=== PATIENT | female | born 1950 | race Caucasian/White ===

== ENCOUNTER → 2018-07-05 09:53 | Outpatient (CLI) | payer MEDICARE, OTHER, SELFPAY ==
--- NOTE | 2018-07-05 10:00 | MM_ITS ---
MM Dig screening mamm BI w/CAD CAD Screening COMPARISON: Digital mammograms with CAD 07/14/2015 INDICATION: There is no personal or family history of breast cancer TECHNIQUE: Standard CC and MLO images were obtained. R2 CAD reviewed. FINDINGS: The breasts are composed primarily of fat with mild scattered fiber glandular densities throughout each breast. There are couple mole markers right breast. There is no suspicious lesion and there are no suspicious microcalcifications. IMPRESSION: Fibrofatty parenchyma with no suspicious lesion seen BI-RADS Category: 2 Benign Finding(s) RECOMMENDED FOLLOW-UP: 1YR - 1 YEAR FOLLOW-UP (A letter has been sent to the patient regarding results of the study.)
--- NOTE | 2018-07-05 10:00 | XR_ITS ---
XR DEXA axial skeleton HISTORY: ITS.REASON: OSTEOPENIA ORDERING PHYSICIAN: Shelby Danielson MD PATIENT AGE: 68 years COMPARISON: None FINDINGS: The BMD measured at the Left femoral neck is 0.796 g/cm squared with a T score of -1.7. This is considered Osteopenic according to the World Health Organization criteria. Fracture risk is Moderate. Treatment is advised. The L1 L4 density has a T score of -0.9 IMPRESSION: Osteopenia with moderate fracture risk. Treatment is advised. Recommend follow-up exam June 2020
== END ==
PROVIDERS: PCP Family Medicine; Visit Provider Family Medicine
DX: Z12.31 Encounter for screening mammogram for malignant neoplasm of breast (principal); N60.19 Diffuse cystic mastopathy of unspecified breast; M85.89 Other specified disorders of bone density and structure, multiple sites
CPT/HCPCS: 77067; 77080

== ENCOUNTER → 2022-01-14 09:12 | Outpatient (CLI) | payer MEDICARE, OTHER, SELFPAY ==
--- NOTE | 2022-01-14 09:18 | XR_ITS ---
FINAL REPORT TECHNIQUE: Bone densitometry calculations of the lumbar spine and left hip were obtained. CLINICAL HISTORY: screening FINDINGS: DEXA BONE DENSITY AXIAL SKELETON Using L1-4, the bone mineral density of the spine is 0.978 g/cm2, corresponding to T-score of -0.6. Classified as normal. Using the left hip, the bone mineral density of the femoral neck is 0.661 g/cm2, corresponding to a T-score of -2.3. Classified as osteopenia. NOTE: T-score: Standard deviation compared with peak bone mass of young adult mean. *Following the recommendations of the International Society of Bone densitometry, classification of hip BMD is based on the lower of two T-scores; total hip or femoral neck. IMPRESSION: Diminished bone mineral density of the left hip consistent with osteopenia. FRAX 10 year fracture risk is 18% for major osteoporotic fracture and 4.1% for hip fracture. Reviewed, Interpreted and Dictated by Jade Scruggs MD Transcribed by Amairani Martinez Authenticated and [facility]
--- NOTE | 2022-01-14 09:18 | MM_ITS ---
PROCEDURE INFORMATION: Exam: MG Bilateral Screening 3D Mammography Exam date and time: 01/14/2022 9:35 AM Age: 71 years old Clinical indication: Screening examination TECHNIQUE: Imaging protocol: Bilateral Screening tomosynthesis and 2D mammography including computer-aided detection (CAD) when performed. COMPARISON: 1. MG SCBI MM Dig screening mamm BI w/CAD 07/05/2018 10:22 AM 2. MG DMSB DIG MAMM-SCREEN ILANA 07/14/2015 2:55 PM FINDINGS: MAMMOGRAPHY: Breast composition: There are scattered areas of fibroglandular density. Mass: None. Architectural distortion: None. Calcifications: No suspicious calcifications. Asymmetric density: 0.7 cm questionable asymmetry in the posterior third of the right upper breast Skin thickening: None. Axillary adenopathy: None. IMPRESSION: Patient to be recalled for spot compression views of the right breast in the exaggerated lateral CC and MLO projections, a full 90 degree lateral view, and right breast ultrasound for further evaluation of a right breast asymmetry. ASSESSMENT: BI-RADS Category 0: Incomplete- Need Additional Imaging Evaluation and/or Prior Mammograms for Comparison
== END ==
PROVIDERS: PCP Family Medicine; Visit Provider Family Medicine
DX: Z12.31 Encounter for screening mammogram for malignant neoplasm of breast (principal); Z78.0 Asymptomatic menopausal state
CPT/HCPCS: 77063; 77067; 77080

== ENCOUNTER → 2022-02-10 13:55 | Outpatient (CLI) | payer MEDICARE, OTHER, SELFPAY ==
--- NOTE | 2022-02-10 14:01 | MM_ITS ---
PROCEDURE INFORMATION: Exam: US Right Breast, Complete MG Right Diagnostic Breast Tomosynthesis Exam date and time: 02/10/2022 2:37 PM Age: 71 years old Clinical indication: Recall on the basis of screening mammogram 01/14/2022 for further evaluation of 0.7 cm questionable asymmetry in the posterior 3rd of the right upper breast. TECHNIQUE: Imaging protocol: Complete ultrasound of all four quadrants of the Right breast and the retroareolar regions, including ultrasound of the axilla when performed. Right Diagnostic tomosynthesis and 2D mammography including computer-aided detection (CAD) when performed. Unilateral or bilateral exam. COMPARISON: MG MM DIG MAMM DX UNILAT RT CAD 02/10/2022 2:01 PM FINDINGS: MAMMOGRAPHY: Additional diagnostic images shows that the questionable 0.7 cm asymmetry in the posterior third of the upper breast (MLO) appears less prominent, and is similar to 07/05/2018 and may correspond to the asymmetry posterior third of the inner breast (CC), which is stable since 07/05/2018. ULTRASOUND: Right sonography, all 4 quadrants, retroareolar and axilla demonstrate, 10 o'clock 7 cm from the nipple, a probable cluster of cysts measuring 0.3 by 0.7 x 0.2 cm. No other findings demonstrated. Sonographically unremarkable right axillary lymph node. IMPRESSION: Subcentimeter questionable persistent asymmetry in the right upper breast and 0.7 cm probable cluster of cysts at 10 o'clock are probably benign. A six-month follow-up diagnostic right mammogram and targeted right breast ultrasound are recommended, unless otherwise clinically indicated. ASSESSMENT: BI-RADS Category 3: Probably benign
== END ==
PROVIDERS: PCP Family Medicine; Visit Provider Family Medicine
DX: R92.8 Other abnormal and inconclusive findings on diagnostic imaging of breast (principal)
CPT/HCPCS: 76641; 77061; 77065; G0279

== ENCOUNTER → 2022-05-26 09:49 | Outpatient (CLI) | payer MEDICARE, OTHER, SELFPAY ==
[2022-05-26 09:57] LABS: Microscopic, Urine URINE MICROSCOPIC (MICROSCOPIC)
[2022-05-26 10:21] LABS: Appearance,Urine CLEAR (Clear); Bilirubin,Urine Negative (Negative); Blood, Urine Negative (Negative); Color,Urine YELLOW (Yellow); Glucose,Urine (UA) Negative (Negative); Ketones,Urine Negative (Negative); Leukocyte Esterase,Urine Negative (Negative); Nitrate,Urine Negative (Negative); Protein,Urine Negative (Negative); Specific Gravity, Urine 1.015 (1.005-1.030); Urobilinogen,Urine 0.2 EU/dl (0.2)
[2022-05-26 10:31] LABS: Basophils # 0.1 K/mm3 (0-0.2); Eosinophils # 0.1 K/mm3 (0.0-0.4); Hematocrit 38.3 % (37.0-47.0); Hemoglobin 12.8 g/dL (12.2-16.2); Lymphocytes # 2.6 K/mm3 (0.7-4.5); Lymphocytes % 33.1 % (10-50); Mean Corpuscular HGB Conc 33.5 g/dL (31.8-35.4); Mean Corpuscular Hemoglobin 30.5 pg (27.0-31.2); Mean Corpuscular Volume 91.2 fl (81-99); Monocytes # 0.6 K/mm3 (0.1-1.0); Monocytes % 8.1 % (1.7-9.3); Neutrophils # 4.5 K/mm3 (1.8-7.8); Neutrophils % 56.8 % (37.0-80.0); Platelet Count 272 K/mm3 (142-424); Red Cell Distribution Width 13.1 % (11.5-17.5); White Blood Count 7.9 K/mm3 (4.8-10.8)
[2022-05-26 10:40] LABS: Bacteria,Urine Trace /lpf; WBC,Urine Occasional #/hpf (0-3)
[2022-05-26 10:51] LABS: Albumin Level 4.1 g/dl (3.5-5.0); Anion Gap 12.3 mEq/L (5-15); Blood Urea Nitrogen 23 mg/dl (7-17); Calcium 9.7 mg/dl (8.4-10.2); Carbon Dioxide 27 mmol/L (22.0-30.0); Chloride 108 mmol/L (98-107); Estimated Glomerular Filt Rate 34 ml/min (>60); GFR (African American) 42 ML/MIN (>60); Glucose 86 mg/dl (74-100); Phosphorous 3.7 mg/dl (2.5-4.5); Potassium 4.3 mmoL/L (3.5-5.1); Sodium 143 mmol/L (136-145)
[2022-05-26 10:52] LABS: Creatinine,Urine Random 119 mg/dL (Not Estab.)
[2022-05-26 11:01] LABS: Intact Parathyroid Hormone 78.5 pg/mL (7.5-53.5)
[2022-05-26 11:11] LABS: 25-OH Vitamin D, Total 61.4 ng/mL (30-100)
== END ==
PROVIDERS: PCP Family Medicine; Visit Provider Internal Medicine Nephrology
DX: N28.9 Disorder of kidney and ureter, unspecified (principal); E55.9 Vitamin D deficiency, unspecified
CPT/HCPCS: 36415; 80069; 81001; 82306; 82570; 83970; 84155; 85025

== ENCOUNTER → 2022-05-31 14:24 | Outpatient (POV) | payer MEDICARE, OTHER, SELFPAY | PROVIDERS: Visit Provider Internal Medicine Nephrology | DX: Z00.00 Encounter for general adult medical examination without abnormal findings (principal) ==

== ENCOUNTER → 2022-09-06 12:57 | Outpatient (CLI) | payer MEDICARE, OTHER, SELFPAY ==
[2022-09-06 13:08] LABS: Microscopic, Urine URINE MICROSCOPIC (MICROSCOPIC)
[2022-09-06 13:24] LABS: Appearance,Urine CLEAR (Clear); Bilirubin,Urine Negative (Negative); Blood, Urine TRACE-I (Negative); Color,Urine YELLOW (Yellow); Glucose,Urine (UA) Negative (Negative); Hematocrit 38.2 % (37.0-47.0); Hemoglobin 12.7 g/dL (12.2-16.2); Ketones,Urine Negative (Negative); Leukocyte Esterase,Urine Negative (Negative); Mean Corpuscular HGB Conc 33.3 g/dL (31.8-35.4); Mean Corpuscular Hemoglobin 30.7 pg (27.0-31.2); Mean Corpuscular Volume 92.3 fl (81-99); Nitrate,Urine Negative (Negative); Platelet Count 269 K/mm3 (142-424); Protein,Urine Negative (Negative); Red Blood Count 4.14 M/mm3 (4.20-5.40); Red Cell Distribution Width 13.1 % (11.5-17.5); Urobilinogen,Urine 0.2 EU/dl (0.2)
[2022-09-06 13:35] LABS: Bacteria,Urine Trace /lpf
[2022-09-06 13:49] LABS: Albumin Level 4.2 g/dl (3.5-5.0); Anion Gap 11.1 mEq/L (5-15); Blood Urea Nitrogen 24 mg/dl (7-17); Calcium 8.8 mg/dl (8.4-10.2); Carbon Dioxide 25 mmol/L (22.0-30.0); Chloride 107 mmol/L (98-107); Estimated Glomerular Filt Rate 44 ml/min (>60); GFR (African American) 54 ML/MIN (>60); Glucose 105 mg/dl (74-100); Phosphorous 3.8 mg/dl (2.5-4.5); Potassium 4.1 mmoL/L (3.5-5.1); Sodium 139 mmol/L (136-145)
[2022-09-06 13:54] LABS: Creatinine,Urine Random 57 mg/dL (Not Estab.)
== END ==
PROVIDERS: PCP Family Medicine; Visit Provider Internal Medicine Nephrology
DX: N28.9 Disorder of kidney and ureter, unspecified (principal)
CPT/HCPCS: 36415; 80069; 81001; 82570; 84155; 85014; 85018; 85048; 85049

== ENCOUNTER → 2022-09-09 12:48 | Outpatient (CLI) | payer MEDICARE, OTHER, SELFPAY ==
--- NOTE | 2022-09-09 12:56 | US_ITS ---
PROCEDURE INFORMATION: Exam: US Right Breast, Complete MG Right Diagnostic Breast Tomosynthesis Exam date and time: 09/09/2022 2:10 PM Age: 72 years old Clinical indication: Short-term radiographic followup; Right breast TECHNIQUE: Imaging protocol: Complete ultrasound of all four quadrants of the right breast and the retroareolar regions, including ultrasound of the axilla when performed. Right Diagnostic tomosynthesis and 2D mammography including computer-aided detection (CAD) when performed. Unilateral or bilateral exam. COMPARISON: US BREAST RT COMPLETE 02/10/2022 2:37 PM FINDINGS: MAMMOGRAPHY: The breast tissue is composed of scattered areas of fibroglandular density. There is no stellate mass, architectural distortion or suspicious microcalcifications to suggest malignancy. Additional spot compression views of the right lateral breast do not demonstrate any persistent focal asymmetry. No skin thickening or axillary adenopathy. ULTRASOUND: Sonographic images of the right breast including the retroareolar region, all 4 quadrants and the axilla do not demonstrate any solid masses. 0.3 cm 12 o'clock axis cyst 7 cm from the nipple. Previous probable cluster of cysts in the 10 o'clock axis are not seen on the current examination. No architectural distortion or acoustical shadowing. No skin thickening or axillary adenopathy. IMPRESSION: No mammographic or sonographic evidence of malignancy. Annual bilateral mammographic screening is recommended in January 2023 unless otherwise clinically indicated. ASSESSMENT: BI-RADS Category 2: Benign
--- NOTE | 2022-09-09 13:04 | US_ITS ---
FINAL REPORT CLINICAL HISTORY: RENAL INSUFFICIENCY FINDINGS: The right kidney measures 10.8 cm in length. It is normal in echogenicity. There is no hydronephrosis. The left kidney measures 10.2 cm in length. It is normal in echogenicity. There is no hydronephrosis. There are anechoic structures in both kidneys measuring up to 4.3 cm on the left and 2.5 cm on the right consistent with benign cysts. The spleen is within normal limits. IMPRESSION: Bilateral renal cysts. Reviewed, Interpreted and Dictated by Harinder Vivas MD Transcribed by Rosa Cannon Authenticated and [facility]
== END ==
PROVIDERS: PCP Family Medicine; Visit Provider Internal Medicine Nephrology
DX: R92.8 Other abnormal and inconclusive findings on diagnostic imaging of breast (principal); N28.9 Disorder of kidney and ureter, unspecified
CPT/HCPCS: 76641; 76770; 77061; 77065; G0279

== ENCOUNTER → 2022-10-21 15:34 | Outpatient (POV) | payer MEDICARE, OTHER, SELFPAY | PROVIDERS: Visit Provider Internal Medicine Nephrology | DX: Z00.00 Encounter for general adult medical examination without abnormal findings (principal) ==

== ENCOUNTER 2023-02-11 17:10 | Inpatient (IN) | payer MEDICARE, OTHER, SELFPAY ==
[2023-02-11 17:11] VITALS: BP 136/76; PULSE 60; RESP 22; TEMP 36.7; O2SAT 99; BMI 28.7
[2023-02-11 17:30] VITALS: BP 133/63; PULSE 58; RESP 20; O2SAT 99
--- NOTE | 2023-02-11 17:51 | XR_ITS ---
PROCEDURE INFORMATION: Exam: XR Left Knee Exam date and time: 02/11/2023 6:41 PM Age: 72 years old Clinical indication: Injury or trauma; Fall; Blunt trauma; Knee; Left; Additional info: Fall>65, pain L hip low back TECHNIQUE: Imaging protocol: Radiologic exam of the left knee. Views: 1 or 2 views. COMPARISON: No relevant prior studies available. FINDINGS: Bones/joints: No acute fracture or dislocation. Mild tricompartmental osteoarthrosis. Soft tissues: Anterior soft tissue swelling. IMPRESSION: 1. Anterior soft tissue swelling. 2. No acute fracture or dislocation.
--- NOTE | 2023-02-11 17:51 | CT_ITS ---
PROCEDURE INFORMATION: Exam: CT Cervical Spine Without Contrast Exam date and time: 02/11/2023 6:28 PM Age: 72 years old Clinical indication: Injury or trauma; Fall; Additional info: Fall>65, pain L hip low back TECHNIQUE: Imaging protocol: Computed tomography of the cervical spine without contrast. Radiation optimization: All CT scans at this facility use at least one of these dose optimization techniques: automated exposure control; mA and/or kV adjustment per patient size (includes targeted exams where dose is matched to clinical indication); or iterative reconstruction. REPORTING DATA: Count of CT and Cardiac NM exams in prior 12 months: This patient has received 0 known CTs and 0 known cardiac nuclear medicine studies in the 12 months prior to the current study. COMPARISON: CT HEAD/BRAIN WO CON 02/11/2023 6:26 PM FINDINGS: Limitations: Mild motion artifact. Bones/joints: No acute fracture or subluxation. Mild degenerative changes of the spine. Lungs: Lung apices are normal. Thyroid: 1 x 1.4 x 1.9 cm peripherally calcified thyroid isthmus nodule. Vasculature: Atherosclerosis. Soft tissues: Unremarkable. IMPRESSION: 1. No acute fracture or subluxation. 2. 1 x 1.4 x 1.9 cm peripherally calcified thyroid isthmus nodule. Follow-up non-emergent thyroid ultrasound is recommended. COMMENTS: Consistent with the [place] [employer]'s Incidental Findings Committee white paper (J Am Devin Radiol 2015): In patients aged 35 years and older with an incidental thyroid nodule equal to or greater than 1.[address], MRI or extrathyroidal US, further evaluation with dedicated thyroid US is recommended for patients with normal life expectancy and without comorbidities. For smaller nodules without suspicious features, no further evaluation or follow up is recommended.
--- NOTE | 2023-02-11 17:51 | CT_ITS ---
PROCEDURE INFORMATION: Exam: CT Head Without Contrast Exam date and time: 02/11/2023 6:26 PM Age: 72 years old Clinical indication: Injury or trauma; Fall; Additional info: Fall>65, pain L hip low back TECHNIQUE: Imaging protocol: Computed tomography of the head without contrast. Radiation optimization: All CT scans at this facility use at least one of these dose optimization techniques: automated exposure control; mA and/or kV adjustment per patient size (includes targeted exams where dose is matched to clinical indication); or iterative reconstruction. REPORTING DATA: Count of CT and Cardiac NM exams in prior 12 months: This patient has received 0 known CTs and 0 known cardiac nuclear medicine studies in the 12 months prior to the current study. COMPARISON: No relevant prior studies available. FINDINGS: Brain: No intracranial hemorrhage. Cerebral ventricles: No ventriculomegaly. Paranasal sinuses: Visualized sinuses are unremarkable. No fluid levels. Mastoid air cells: Visualized mastoid air cells are well aerated. Bones/joints: Unremarkable. No acute fracture. Soft tissues: Unremarkable. IMPRESSION: No intracranial hemorrhage or acute fracture.
--- NOTE | 2023-02-11 17:51 | XR_ITS ---
PROCEDURE INFORMATION: Exam: XR Left Hip Exam date and time: 02/11/2023 6:41 PM Age: 72 years old Clinical indication: Injury or trauma; Fall; Blunt trauma (contusions or hematomas); Left; Hip; Additional info: Fall>65, pain L hip low back TECHNIQUE: Imaging protocol: Radiologic exam of the left hip. Views: 2 or 3 views hip with pelvis when performed. COMPARISON: CT BONY PELVIS 11/02/2023 18:35 FINDINGS: Bones/joints: Mildly displaced subcapital left femoral neck fracture. Soft tissues: Unremarkable. IMPRESSION: Mildly displaced subcapital left femoral neck fracture.
--- NOTE | 2023-02-11 17:51 | CT_ITS ---
PROCEDURE INFORMATION: Exam: CT Thoracic Spine Without Contrast Exam date and time: 02/11/2023 6:29 PM Age: 72 years old Clinical indication: Injury or trauma; Additional info: Fall>65, pain L hip low back TECHNIQUE: Imaging protocol: Computed tomography of the thoracic spine without contrast. Radiation optimization: All CT scans at this facility use at least one of these dose optimization techniques: automated exposure control; mA and/or kV adjustment per patient size (includes targeted exams where dose is matched to clinical indication); or iterative reconstruction. REPORTING DATA: Count of CT and Cardiac NM exams in prior 12 months: This patient has received 0 known CTs and 0 known cardiac nuclear medicine studies in the 12 months prior to the current study. COMPARISON: CT CERVICAL SPINE WO CON 11/02/2023 18:28 FINDINGS: Bones/joints: No acute fracture. Normal alignment. No significant disc bulge or herniation. No severe spinal canal stenosis. No significant neural foraminal narrowing. Soft tissues: Unremarkable. Vasculature: The aorta demonstrates mild atherosclerotic disease. Enlarged pulmonary arteries likely represent chronic pulmonary arterial hypertension. Lungs: Mild scarring and atelectasis in the lower lungs. Heart: Mitral valve calcifications. Thyroid: Thyroid nodules measuring up to 13 mm. No follow-up imaging is warranted. Kidneys and ureters: Low attenuation renal lesions measuring up to 1.6 cm in diameter are incompletely characterized, but are likely cysts. No followup imaging is warranted. IMPRESSION: No acute fracture or malalignment of the thoracic spine.
--- NOTE | 2023-02-11 17:51 | XR_ITS ---
PROCEDURE INFORMATION: Exam: XR Left Femur Exam date and time: 02/11/2023 6:41 PM Age: 72 years old Clinical indication: Injury or trauma; Fall; Blunt trauma; Thigh or upper leg; Left; Additional info: Fall>65, pain L hip low back TECHNIQUE: Imaging protocol: Radiologic exam of the left femur. Views: 2 views. COMPARISON: CT BONY PELVIS 11/02/2023 18:35 FINDINGS: Bones/joints: Mildly displaced subcapital left femoral neck fracture. Soft tissues: Unremarkable. IMPRESSION: Mildly displaced subcapital left femoral neck fracture.
--- NOTE | 2023-02-11 17:51 | XR_ITS ---
PROCEDURE INFORMATION: Exam: XR Left Tibia and Fibula Exam date and time: 02/11/2023 6:41 PM Age: 72 years old Clinical indication: Injury or trauma; Fall; Blunt trauma; Lower leg; Left; Additional info: Fall>65, pain L hip low back TECHNIQUE: Imaging protocol: Radiologic exam of the left tibia and fibula. Views: 2 views. COMPARISON: No relevant prior studies available. FINDINGS: Bones/joints: No acute fracture or dislocation. Soft tissues: Normal. IMPRESSION: No acute fracture or dislocation.
--- NOTE | 2023-02-11 17:51 | CT_ITS ---
PROCEDURE INFORMATION: Exam: CT Lumbar Spine Without Contrast Exam date and time: 02/11/2023 6:32 PM Age: 72 years old Clinical indication: Injury or trauma; Fall; Additional info: Fall>65, pain L hip low back TECHNIQUE: Imaging protocol: Computed tomography of the lumbar spine without contrast. Radiation optimization: All CT scans at this facility use at least one of these dose optimization techniques: automated exposure control; mA and/or kV adjustment per patient size (includes targeted exams where dose is matched to clinical indication); or iterative reconstruction. REPORTING DATA: Count of CT and Cardiac NM exams in prior 12 months: This patient has received 0 known CTs and 0 known cardiac nuclear medicine studies in the 12 months prior to the current study. COMPARISON: CT THORACIC SPINE WO CON 11/02/2023 18:29 FINDINGS: Bones/joints: Multilevel degenerative changes of the lumbar spine producing multiple levels of mild spinal canal stenosis. Soft tissues: Unremarkable. IMPRESSION: No acute fracture or malalignment of the lumbar spine.
--- NOTE | 2023-02-11 17:51 | CT_ITS ---
PROCEDURE INFORMATION: Exam: CT Pelvis Without Contrast; Skeletal Exam date and time: 02/11/2023 6:35 PM Age: 72 years old Clinical indication: Injury or trauma; Fall; Additional info: Fall>65, pain L hip low back TECHNIQUE: Imaging protocol: Computed tomography of the pelvis without contrast. Exam focused on the skeleton. Radiation optimization: All CT scans at this facility use at least one of these dose optimization techniques: automated exposure control; mA and/or kV adjustment per patient size (includes targeted exams where dose is matched to clinical indication); or iterative reconstruction. REPORTING DATA: Count of CT and Cardiac NM exams in prior 12 months: This patient has received 0 known CTs and 0 known cardiac nuclear medicine studies in the 12 months prior to the current study. COMPARISON: CT LUMBAR SPINE WO CON 11/02/2023 18:32 FINDINGS: Bones/joints: Mildly displaced subcapital left femoral neck fracture. Moderate right hip osteoarthrosis. Soft tissues: Tiny fat containing umbilical hernia. IMPRESSION: Mildly displaced subcapital left femoral neck fracture.
--- NOTE | 2023-02-11 17:53 | XR_ITS ---
PROCEDURE INFORMATION: Exam: XR Chest Exam date and time: 02/11/2023 6:41 PM Age: 72 years old Clinical indication: Injury or trauma; Fall; Blunt trauma (contusions or hematomas); Additional info: Fall>65, pain L hip low back TECHNIQUE: Imaging protocol: Radiologic exam of the chest. Views: 1 view. COMPARISON: CT THORACIC SPINE WO CON 11/02/2023 18:29 FINDINGS: Lungs: Unremarkable. No consolidation. Pleural spaces: Unremarkable. No pleural effusion. No pneumothorax. Heart/Mediastinum: Borderline cardiomegaly. Vasculature: Vascular calcifications. Bones/joints: Unremarkable. IMPRESSION: No active disease.
[2023-02-11 18:00] VITALS: BP 153/70; PULSE 59; RESP 20; O2SAT 100
--- NOTE | 2023-02-11 18:11 | HMH.EDGENADL ---
Discharge Plan Disposition Patient Disposition: Admitted Condition: Good Clinical Impressions Clinical Impression: Thyroid nodule Closed subcapital fracture of neck of left femur Qualifiers: Encounter type: initial encounter Qualified Code(s): S72.012A - Unspecified intracapsular fracture of left femur, initial encounter for closed fracture Discharge ED Provider: Audrey Card General Adult HPI General Chief complaint: Fall Stated complaint: AO 1630, fall LT leg and hip injury Time Seen by Provider: 02/11/23 17:18 Mode of Arrival: Family Vehicle Source of Information: Patient and Medical Record Limitations: No Limitations Description of Symptoms (Recalled from ER Triage Doc. by RN): Pt c/o pain to L hip through ankle after getting her LLE caught on a rug in the kitchen and falling. States she got wedged between the sink and counter. Pulses 2+, DOG BARBER brisk. Report tenderness to L knee, thigh, and L low pelvic area. No shortening or rotation noted to the LLE. Pt is not on blood thinners. 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 The fall occured approx @ 1630 History of Present Illness HPI narrative: This patient is a 72-year-old female presenting to the emergency department for evaluation with concern for left lower extremity pain that started after a fall just prior to arrival. She states that she was walking when she caught her foot caught on the rug in the kitchen and fell wedged between the sink and counter onto her left lower extremity. She complains of pain in her left hip/groin radiating down her left leg. She has not been able to bear weight since the fall. She denies any head injury, loss of consciousness, numbness, tingling, chest pain, abdominal pain, or other concerns. She does admit to some low back pain. She denies use of anticoagulation. Related Data Home Medications Medication Instructions Recorded Confirmed citalopram 20 mg tablet 20 mg PO DAILY Depression 02/11/23 02/11/23 pravastatin 40 mg tablet 40 mg PO HS High Blood Pressure 02/11/23 02/11/23 triamterene 37.5 1 tab PO DAILY High Blood Pressure 02/11/23 02/11/23 mg-hydrochlorothiazide 25 mg tablet Allergies Allergy/AdvReac Type Severity Reaction Status Date / Time No Known Allergies Allergy Verified 02/11/23 18:03 [facility] Disclaimer: The information contained in this section may have been updated after the patient was seen, as this information can be updated by other users. Social History Smoking Status: Never smoker alcohol intake: never current occupational status: retired Travel in the last 8 weeks: None ROS Obtained: Yes All systems reviewed & no additional complaints except as documented Physical Exam General General appearance: alert and in no apparent distress Head Head exam: atraumatic and normocephalic Eye Eye exam: Present normal appearance, PERRL and EOMI ENT ENT exam: Present normal exam, normal oropharynx, mucous membranes moist and normal external ear exam Neck Neck exam: Present normal inspection, full ROM and trachea midline; Absent tenderness Chest Chest inspection: Present normal inspection and symmetric chest wall rise; Absent tenderness Respiratory Respiratory exam: Present normal lung sounds bilaterally; Absent respiratory distress, wheezes, stridor or accessory muscle use Cardiovascular Cardiovascular exam: Present regular rate and normal rhythm Abdominal Exam Abdominal exam: Present soft; Absent distention, tenderness or guarding Extremities Exam Extremities exam: Present tenderness, normal capillary refill and other (Tenderness to palpation of the left hip/proximal femur as well as the left knee. All compartments soft. Neurovascularly intact distally. Small bruise on L lateral lower leg) Back Exam Back exam: Present normal inspection and full ROM; Absent tenderness Neurological Exam Neurological exam: Present alert, oriented X3, CN II-XII intact and normal gait; Ab
[2023-02-11 18:31] LABS: Basophils % 0.2 % (0.1-2.0); Eosinophils # 0.1 K/mm3 (0.0-0.4); Eosinophils % 0.4 % (0.1-12.0); Hematocrit 38.4 % (37.0-47.0); Hemoglobin 13.1 g/dL (12.2-16.2); Lymphocytes # 2.2 K/mm3 (0.7-4.5); Lymphocytes % 14.7 % (10-50); Mean Corpuscular HGB Conc 34.1 g/dL (31.8-35.4); Mean Corpuscular Hemoglobin 30.6 pg (27.0-31.2); Mean Corpuscular Volume 89.8 fl (81-99); Mean Platelet Volume 7.8 fl (7.4-10.4); Monocytes # 0.9 K/mm3 (0.1-1.0); Neutrophils # 11.8 K/mm3 (1.8-7.8); Neutrophils % 78.6 % (37.0-80.0); Platelet Count 232 K/mm3 (142-424); Red Blood Count 4.28 M/mm3 (4.20-5.40); Red Cell Distribution Width 13.1 % (11.5-17.5)
[2023-02-11 18:33] LABS: MANUAL DIFFERENTIAL MANUAL DIFFERENTIAL (MANUAL DIFF)
--- NOTE | 2023-02-11 18:37 | CT_ITS ---
PROCEDURE INFORMATION: Exam: CT Left Lower Extremity Without Contrast, Hip Exam date and time: 02/11/2023 6:42 PM Age: 72 years old Clinical indication: Injury or trauma; Fall; Additional info: Pain. Left hip pain TECHNIQUE: Imaging protocol: CT of the left lower extremity without contrast was performed. Exam focused on the hip. 3D rendering (Not supervised by radiologist): MIP and/or 3D reconstructed images were created by the technologist. Radiation optimization: All CT scans at this facility use at least one of these dose optimization techniques: automated exposure control; mA and/or kV adjustment per patient size (includes targeted exams where dose is matched to clinical indication); or iterative reconstruction. REPORTING DATA: Count of CT and Cardiac NM exams in prior 12 months: This patient has received 0 known CTs and 0 known cardiac nuclear medicine studies in the 12 months prior to the current study. COMPARISON: CT BONY PELVIS 11/02/2023 18:35 FINDINGS: Bones/joints: Mildly displaced subcapital left femoral neck fracture. Soft tissues: Normal. IMPRESSION: Mildly displaced subcapital left femoral neck fracture.
[2023-02-11 18:43] LABS: Anion Gap 15.4 mEq/L (5-15); Blood Urea Nitrogen 24 mg/dl (7-17); Calcium 9.1 mg/dl (8.4-10.2); Carbon Dioxide 22 mmol/L (22.0-30.0); Chloride 106 mmol/L (98-107); Creatinine Clearance Estimated 50 mL/min (50-200); Estimated Glomerular Filt Rate 34 ml/min (>60); GFR (African American) 42 ML/MIN (>60); Glucose 97 mg/dl (74-100); Potassium 3.4 mmoL/L (3.5-5.1); Sodium 140 mmol/L (136-145)
[2023-02-11 19:00] LABS: Lymphocytes % 16 % (10-50); Monocytes % 1 % (2-9); Neutrophils % 83 % (42-76); Platelet Estimate Normal; RBC Morphology Normal; Total Cells Counted 100
--- NOTE | 2023-02-11 19:07 | PC.NURSE ---
Dr. wAad pageron
--- NOTE | 2023-02-11 19:43 | PC.NURSE ---
paged on-call for dr amador (dr dodge)
--- NOTE | 2023-02-11 19:47 | PC.NURSE ---
dr dodge returned call
--- NOTE | 2023-02-11 19:53 | PC.NURSE ---
call placed for bed assignment. spoke with jb. dx: femoral neck fracture. frank.
[2023-02-11 20:00] VITALS: BP 147/70; PULSE 81; RESP 18; TEMP 37.7; O2SAT 94; BMI 28.0
--- NOTE | 2023-02-11 20:20 | PC.NURSE ---
called to report to Andrae [place] and answered all questions, pt is going to room 203
--- NOTE | 2023-02-11 21:09 | PC.NURSE ---
pt arrived to floor at this time
[2023-02-11 21:12] VITALS: BP 140/60; PULSE 61; RESP 20; TEMP 36.7; O2SAT 95
--- NOTE | 2023-02-12 00:35 | EXP.ORTH.CON ---
History of Present Illness *Admission Date: 02/11/23 *Reason for visit:: Left hip fracture *History of present illness: This patient is a 72-year-old female presenting to the emergency department for evaluation with concern for left lower extremity pain that started after a fall just prior to arrival. She states that she was walking when she caught her foot caught on the rug in the kitchen and fell wedged between the sink and counter onto her left lower extremity. She complains of pain in her left hip/groin radiating down her left leg. She has not been able to bear weight since the fall. She denies any head injury, loss of consciousness, numbness, tingling, chest pain, abdominal pain, or other concerns. She does admit to some low back pain. She denies use of anticoagulation. [facility] Disclaimer: The information contained in this section may have been updated after the patient was seen, as this information can be updated by other users. Medical History (Updated 02/11/23 @ 21:44 by Kayla Danielson RN) Anxiety and depression Arthritis Hyperlipidemia Hypertension Surgical History (Updated 02/11/23 @ 21:44 by Kayla Danielson RN) H/O hand surgery History of tonsillectomy Family History (Updated 02/11/23 @ 21:44 by Kayla Danielson RN) Other Family history of hypertension Social History (Updated 02/11/23 @ 21:44 by Kayla Danielson RN) Smoking Status: Never smoker alcohol intake: never current occupational status: retired Travel in the last 8 weeks: None Meds Home Medications and Allergies Home Medications Medication Instructions Recorded Confirmed Type acetaminophen 325 mg tablet 650 mg PO Q6HP PRN Mild Pain 02/11/23 02/11/23 History (Tylenol) (Scale Score 1-4) citalopram 20 mg tablet 20 mg PO DAILY Depression 02/11/23 02/11/23 History melatonin 5 mg tablet 5 mg PO HS PRN Sleep 02/11/23 02/11/23 History pravastatin 40 mg tablet 40 mg PO HS High Blood Pressure 02/11/23 02/11/23 History triamterene 37.5 0.5 tab PO DAILY High Blood 02/11/23 02/11/23 History mg-hydrochlorothiazide 25 mg tablet Pressure New Prescriptions to Start Prescriptions: Allergies Allergy/AdvReac Type Severity Reaction Status Date / Time No Known Allergies Allergy Verified 02/11/23 18:03 Ortho Exam (Inpt) Vital signs and Labs for Last 24 Hours: Temp Pulse Resp BP Pulse Ox O2 Del Method 98.1 F 61 20 140/60 94 L Room Air 02/11/23 21:12 02/11/23 21:12 02/11/23 21:12 02/11/23 21:12 02/11/23 20:00 02/11/23 23:00 Laboratory Results - last 24 hr 02/11/23 18:21: WBC 15.0 H, RBC 4.28, Hgb 13.1, Hct 38.4, MCV 89.8, MCH 30.6, MCHC 34.1, RDW 13.1, Plt Count 232, MPV 7.8, Neut % (Auto) 78.6, Lymph % (Auto) 14.7, Moody % (Auto) 6.0, Eos % (Auto) 0.4, Baso % (Auto) 0.2, Neut # (Auto) 11.8 H, Lymph # (Auto) 2.2, Moody # (Auto) 0.9, Eos # (Auto) 0.1, Baso # (Auto) 0.0, Total Counted 100, Neutrophils % (Manual) 83 H, Lymphocytes % (Manual) 16, Monocytes % (Manual) 1 L, Platelet Estimate Normal, RBC Morphology Normal, Sodium 140, Potassium 3.4 L, Chloride 106, Carbon Dioxide 22, Anion Gap 15.4 H, BUN 24 H, Creatinine 1.50 H, Estimated Creat Clear 50, Estimated GFR 34 L, Est GFR ( Amer) 42 L, Glucose 97, Calcium 9.1 I & O for Labs for Last 24 Hours: Intake & Output 02/09/23 02/10/23 02/11/23 02/12/23 23:59 23:59 23:59 23:59 Output Total 0 / 0 Balance 0 / 0 Weight 196 lb 5 oz Additional findings:: Left hip: Groin pain with any movement internal and external rotation. Unable to flex the hip. Left hip x-rays and CT scan show displaced femoral neck fracture. Results Labs 02/11/23 18:21 02/11/23 18:21 Labs: Abnormal lab results 02/11/23 Range/Units 18:21 WBC 15.0 H (4.8-10.8) K/mm3 Neut # (Auto) 11.8 H (1.8-7.8) K/mm3 Neutrophils % (Manual) 83 H (42-76) % Monocytes % (Manual) 1 L (2-9) % Potassium 3.4 L (3.5-5.1) mmoL/L Anion Gap
[2023-02-12 04:00] VITALS: BP 117/58; PULSE 58; RESP 18; TEMP 37; O2SAT 93; BMI 28.5
--- NOTE | 2023-02-12 05:42 | PC.NURSE ---
Patient unable to urinate with purewick. States I cannot pee lying down in bed. Bladder scan >700ml, bladder distended and tender to touch.
--- NOTE | 2023-02-12 06:54 | PC.NURSE ---
A&O x4. Patient with left femoral neck fracture. Pain regimen currently effective with PRN meds. Patient unable to urinate with use of purewick. Straight cath obtained per protocol after BS revealed >700 in bladder. 775ml output after cath. Patient states I cannot pee lying down. No other complaints at present.
[2023-02-12 07:28] VITALS: BP 122/58; PULSE 68; RESP 16; TEMP 37.1; O2SAT 90
--- NOTE | 2023-02-12 07:33 | EXP.HP ---
History of Present Illness *Admission Date: 02/11/23 *History of present illness: Ms. Burks is a 72 year old female patient of [facility], who see Dr. Danielson for her primary care, who presented to [facility] ER last night after falling at home. She had a ground level fall in her kitchen after tripping on the corner of a rug. She did not lose consciousness. She was unable to bear weight so she came to the ER for an evaluation. She was evaluated by the ER doctor and found to have a left proximal femur fracture. Dr. Awad from orthopedics was consulted and saw patient last night. He is planning on performing a total left hip replacement. Patient has no concerns at this time and is ready to have surgery. [facility] Disclaimer: The information contained in this section may have been updated after the patient was seen, as this information can be updated by other users. Medical History (Updated 02/12/23 @ 08:10 by Avinash Worley MD) Anxiety and depression Arthritis Dupuytren's contracture Fibrocystic breast disease GERD (gastroesophageal reflux disease) Hyperlipidemia Hypertension Insomnia Osteopenia Stage 3b chronic kidney disease (CKD) Surgical History H/O hand surgery History of tonsillectomy Family History Family history of hypertension Social History Smoking Status: Never smoker alcohol intake: never current occupational status: retired Travel in the last 8 weeks: None Review of Systems Constitutional Constitutional: Denies chills and Denies fever(s) Eyes Eyes: Denies blurry vision ENT Ears, Nose, Mouth, and Throat: Denies dizziness and Denies epistaxis *Cardiovascular Cardiovascular: Denies chest pain *Respiratory Respiratory: Denies cough *Gastrointestinal Gastrointestinal: Denies change in bowel habits *Genitourinary Genitourinary: Denies difficulty voiding *Musculoskeletal Musculoskeletal: Reports as per HPI Integumentary/Breasts Skin/Breast: Denies rash *Neurologic Neurologic: Denies dizziness Meds Home Medications and Allergies Home Medications Medication Instructions Recorded Confirmed Type acetaminophen 325 mg tablet 650 mg PO Q6HP PRN Mild Pain 02/11/23 02/11/23 History (Tylenol) (Scale Score 1-4) citalopram 20 mg tablet 20 mg PO DAILY Depression 02/11/23 02/11/23 History melatonin 5 mg tablet 5 mg PO HS PRN Sleep 02/11/23 02/11/23 History pravastatin 40 mg tablet 40 mg PO HS High Blood Pressure 02/11/23 02/11/23 History triamterene 37.5 0.5 tab PO DAILY High Blood 02/11/23 02/11/23 History mg-hydrochlorothiazide 25 mg tablet Pressure New Prescriptions to Start Prescriptions: Allergies Allergy/AdvReac Type Severity Reaction Status Date / Time No Known Allergies Allergy Verified 02/11/23 18:03 Exam Data for Last 24 hours Vital signs and Labs for Last 24 Hours: Temp Pulse Resp BP Pulse Ox O2 Del Method 98.8 F 68 16 122/58 L 90 L Room Air 02/12/23 07:28 02/12/23 07:28 02/12/23 07:28 02/12/23 07:28 02/12/23 07:28 02/12/23 07:28 Laboratory Results - last 24 hr 02/11/23 18:21: WBC 15.0 H, RBC 4.28, Hgb 13.1, Hct 38.4, MCV 89.8, MCH 30.6, MCHC 34.1, RDW 13.1, Plt Count 232, MPV 7.8, Neut % (Auto) 78.6, Lymph % (Auto) 14.7, Ellis % (Auto) 6.0, Eos % (Auto) 0.4, Baso % (Auto) 0.2, Neut # (Auto) 11.8 H, Lymph # (Auto) 2.2, Ellis # (Auto) 0.9, Eos # (Auto) 0.1, Baso # (Auto) 0.0, Total Counted 100, Neutrophils % (Manual) 83 H, Lymphocytes % (Manual) 16, Monocytes % (Manual) 1 L, Platelet Estimate Normal, RBC Morphology Normal, Sodium 140, Potassium 3.4 L, Chloride 106, Carbon Dioxide 22, Anion Gap 15.4 H, BUN 24 H, Creatinine 1.50 H, Estimated Creat Clear 50, Estimated GFR 34 L, Est GFR ( Amer) 42 L, Glucose 97, Calcium 9.1 I & O for Last 24 hours: Intake & Output 02/09/23 02/10/23
[2023-02-12 08:12] LABS: Basophils % 0.3 % (0.1-2.0); Eosinophils # 0.2 K/mm3 (0.0-0.4); Eosinophils % 1.3 % (0.1-12.0); Hematocrit 34.6 % (37.0-47.0); Hemoglobin 11.9 g/dL (12.2-16.2); Lymphocytes # 1.8 K/mm3 (0.7-4.5); Lymphocytes % 14.9 % (10-50); Mean Corpuscular HGB Conc 34.3 g/dL (31.8-35.4); Mean Corpuscular Hemoglobin 30.9 pg (27.0-31.2); Mean Corpuscular Volume 89.9 fl (81-99); Mean Platelet Volume 8.2 fl (7.4-10.4); Monocytes # 0.8 K/mm3 (0.1-1.0); Neutrophils % 76.6 % (37.0-80.0); Platelet Count 226 K/mm3 (142-424); Red Blood Count 3.85 M/mm3 (4.20-5.40); Red Cell Distribution Width 13.1 % (11.5-17.5); White Blood Count 11.7 K/mm3 (4.8-10.8)
[2023-02-12 08:22] LABS: Chloride 109 mmol/L (98-107); Potassium 3.6 mmoL/L (3.5-5.1); Sodium 139 mmol/L (136-145)
--- NOTE | 2023-02-12 08:24 | ECG_ITS ---
APPROVED REPORT Exam: Resting ECG HR:51 bpm ECG Measurements Heart Rate 51 AXES AL 171 P 55 QRSd 91 QRS -5 QT 450 T 5 QTc 428 Conclusion SINUS BRADYCARDIA WITH OCCASIONAL SUPRAVENTRICULAR PREMATURE COMPLEXES LOW QRS VOLTAGE IN PRECORDIAL LEADS [QRS DEFLECTION < 1.0 mV IN CHEST LEADS] POSSIBLE ANTERIOR MYOCARDIAL INFARCTION , PROBABLY OLD [30 ms Q WAVE IN V3/V4, OR R < 0.2 mV IN V4] BORDERLINE ECG UNCONFIRMED REPORT Electronically signed by : Merrick Zavala MD 02/13/2023 12:34:54
[2023-02-12 08:25] LABS: Anion Gap 11.6 mEq/L (5-15); Blood Urea Nitrogen 26 mg/dl (7-17); Calcium 8.8 mg/dl (8.4-10.2); Carbon Dioxide 22 mmol/L (22.0-30.0); Creatinine Clearance Estimated 53 mL/min (50-200); Estimated Glomerular Filt Rate 37 ml/min (>60); GFR (African American) 45 ML/MIN (>60); Glucose 94 mg/dl (74-100)
--- NOTE | 2023-02-12 09:26 | HMH.PHAINT1 ---
Pharmacy Intervention Comments: MEDICATION RECONCILIATION COMPLETE USING EXTERNAL PHARMACY FILL HISTORY.
[2023-02-12 11:40] LABS: Microscopic, Urine URINE MICROSCOPIC (MICROSCOPIC)
[2023-02-12 11:42] LABS: Appearance,Urine CLEAR (Clear); Blood, Urine TRACE-I (Negative); Color,Urine YELLOW (Yellow); Glucose,Urine (UA) Negative (Negative); Ketones,Urine Negative (Negative); Leukocyte Esterase,Urine TRACE (Negative); Nitrate,Urine Negative (Negative); Protein,Urine Negative (Negative); Urobilinogen,Urine 0.2 EU/dl (0.2)
[2023-02-12 11:48] LABS: Bilirubin,Urine 1+ (Negative)
[2023-02-12 12:08] LABS: Bacteria,Urine Trace /lpf; RBC,Urine Occasional #/hpf (0-3)
[2023-02-12 15:06] VITALS: BP 104/53; PULSE 64; RESP 18; TEMP 36.9; O2SAT 94
--- NOTE | 2023-02-12 17:46 | PC.NURSE ---
A&OX4. TOLERATING RA WELL. HAS HAD NO NEEDS OR C/O THUS FAR THIS SHIFT. HAS BEEN RESTING IN BED. HAS NOT NEEDED PAIN MEDICATION THUS FAR. INSERTED F/C PER MD ORDER. U/A OBTAINED. PROPHYLACTIC ABX STARTED PER B[facility]LEE FOR U/A. FAMILY AT BEDSIDE. HOME MEDS LOCKED IN DRAWER. VSS.
[2023-02-12 20:00] VITALS: BP 121/62; PULSE 64; RESP 18; TEMP 37.7; O2SAT 94
[2023-02-13] VITALS (20 sets, daily range): BP systolic 95–115; BP diastolic 40–71; PULSE 71–96; RESP 12–18; TEMP 36.5–37.7; O2SAT 92–99; BMI 29.2
--- NOTE | 2023-02-13 07:56 | EXP.ANES.CKL ---
[facility] Disclaimer: The information contained in this section may have been updated after the patient was seen, as this information can be updated by other users. Medical History Anxiety and depression Arthritis Dupuytren's contracture Fibrocystic breast disease GERD (gastroesophageal reflux disease) Hyperlipidemia Hypertension Insomnia Osteopenia Stage 3b chronic kidney disease (CKD) Surgical History H/O hand surgery History of tonsillectomy Family History Other Family history of hypertension Social History Smoking Status: Never smoker alcohol intake: never substance use type: denies use current occupational status: retired Travel in the last 8 weeks: None [facility] Anesthesia Checklist Patient Identification Patient Identification: Arm Band and Verbal (Name & ) Structural Data Admitted From: Inpatient Planned Operative Procedure/s: Mychal arthroplasty Consent for Planned Operative Procedure(s) Verified: Yes Verified Documents: Surgical Consent NPO Status Verified Time NPO: 00:00 Chart Verification Results Verified: CBC and BMP Airway Assessment Mallampati Score:: Class II C-Spine Mobility Assessed: Yes TMJ Mobility Assessed: Yes Dentition: Good Dentition Neurological Assessment Level of Consciousness: Awake Hx Seizures: No Numbness or tingling in extremities: No Anesthesia Plan Anesthesia Risk discussed: Yes Anesthesia Plan: Verified ASA Class: III Anesthesia Type: Spinal
--- NOTE | 2023-02-13 11:15 | EXP.ANES.I ---
[facility] Anesthesia Record Part I Anesthesia Record I Intake, IV Amount: 1,000 Hydration: Adequate Estimated blood loss (mL): 200 Urine output (mL): 50 Blood Pressure: 107/56 SaO2: 98 Pulse Rate: 87 Airway Patency: Patent Respiratory Rate: 16 Temperature: 97.7 F Patient is:: Drowsy and Oral/Nasal airway Stable to PACU at:: 11:10
--- NOTE | 2023-02-13 11:18 | XR_ITS ---
PROCEDURE INFORMATION: Exam: XR Left Hip Exam date and time: 02/13/2023 11:35 AM Age: 72 years old Clinical indication: Screening exam; Post op total hip TECHNIQUE: Imaging protocol: Radiologic exam of the left hip. Views: 2 or 3 views hip with pelvis when performed. COMPARISON: CT HIP LT WO CON 02/11/2023 6:42 PM FINDINGS: Bones/joints: [place] bones are osteopenic. The patient is post left total hip arthroplasty without evidence for hardware complication. Soft tissues: Unremarkable. IMPRESSION: Osteopenia and postsurgical change, pelvis and left hip.
--- NOTE | 2023-02-13 11:26 | P.OP_ITS ---
Date of procedure: 02/13/23 Pre-op Diagnosis:: Displaced left femoral neck fracture Post-op Diagnosis:: Same Procedure performed:: Hemiarthroplasty left hip Surgeon:: Ashok Awad DO REGENERATION OPERATOR:: Jareth Palacios Anesthesia: GETA Estimated blood loss (mL): 200 Clinical Note:: 72-year-old female who fell from ground-level fall and suffered a displaced femoral neck fracture. Operative findings:: See dictation Operative note:: Patient was identified preoperatively. Left hip was marked with yes my initials. Transported to operative suite. Placed upon operating bed. General anesthesia ministered airway secured. Then placed in a lateral position with the hip holders. Left hip was up and prepped and draped. Once prepped and draped. Final operative timeout performed to identify proper patient procedure and extremity. Everyone involved the case agreed. There is no counter indications to beginning. Did receive preoperative antibiotics. Marking pen was used to chan bony landmarks of the hip and plan lateral incision. Skin knife was used to incise through skin. Careful dissection was taken down to identify the IT band. It was split in line with the femur. Charnley retractor was placed throughout the procedure. This exposed the lateral hip and the abductors. Using a modified Hardinge approach abductors were split which and retracted anteriorly within the Charnley retractor for protection throughout the procedure. This exposed the capsule of the hip and the capsule was cut in line and teed. The intra-articular aspect had hematoma which was evacuated. Hohmann retractors were placed around the neck of the femur and cleanup cut with the Slick was performed. These bone were then removed. And then attention was brought to removal of the femoral head. Using a corkscrew and retractor the femoral head was removed without difficulty. The acetabulum was inspected and the material was removed from the acetabulum irrigation was performed acetabular cartilage intact. Leg was then brought into the bag anteriorly and externally rotated. The femoral neck elevator was placed. The lateralizing cookie-cutter broach was utilized along with a hand broach and canal finder broach. I then sequentially broached the femur starting with size 8 up to size 13. 13 gave good fit and fill within the canal. Final implant was called for size 13. Irrigation was performed. The 13 chylous press-fit stem was impacted into place. Appropriate size femoral head +1.5 mm was selected and impacted into place the hip was reduced taken through range of motion found to be very stable with flexion extension internal/external rotation and with shucking. Capsule was closed with 0 Vicryl stitch. Abductor repair was performed with #5 Ethibond stitches back into the femur. IT band closed with a running #1 strata fix suture. Deep layers closed with 0 Vicryl. Subcutaneous with 2-0 Vicryl. Surgical clips in the skin for closure. Sterile dressing placed. Patient waken anesthesia placed in abduction pillow taken recovery in stable condition. Condition: stable Disposition: PACU Complications:: None apparent
--- NOTE | 2023-02-13 11:49 | SUR.PHASEI ---
1140-pt transported via bed to 2nd floor per Loulou MON[place]NA & Diogenes. Left in care of Aleksandar [place]. and @ bs. [facility].
--- NOTE | 2023-02-13 12:46 | EXP.ACUTE.PN ---
Subjective *Date: 02/13/23 *Time: 12:46 Interval history: Came by to see patient a few minutes after 8 this morning and she had already been taken down to the OR. She is back from surgery now. Medical Exam Vital signs and Labs for Last 24 Hours: Vital Signs Temp Pulse Pulse Pulse Pulse Resp BP 02/13/23 12:41 02/13/23 11:40 92 H 12 02/13/23 11:30 95 H 12 02/13/23 11:20 95 H 12 02/13/23 11:10 97.7 F 87 16 02/13/23 08:00 02/13/23 07:34 98.4 F 75 16 02/13/23 04:00 99.9 F H 87 18 02/13/23 05:00 02/13/23 03:00 02/13/23 01:00 02/12/23 23:00 02/12/23 21:00 02/12/23 20:00 02/12/23 20:00 99.8 F H 64 18 02/12/23 18:37 02/12/23 16:51 02/12/23 15:06 98.4 F 64 18 02/12/23 14:56 02/12/23 12:58 02/13/23 11:17 97.7 F 87 16 107/56 L BP BP Pulse Ox O2 Del Method O2 Flow Rate 02/13/23 12:41 Nasal Cannula 2 02/13/23 11:40 98/55 L 99 Nasal Cannula 2 02/13/23 11:30 100/50 L 99 Nasal Cannula 2 02/13/23 11:20 95/47 L 98 Nasal Cannula 2 02/13/23 11:10 107/56 L 98 Nasal Cannula 2 02/13/23 08:00 Room Air 02/13/23 07:34 110/57 L 92 L Room Air 02/13/23 04:00 114/71 93 L Room Air 02/13/23 05:00 Room Air 02/13/23 03:00 Room Air 02/13/23 01:00 Room Air 02/12/23 23:00 Room Air 02/12/23 21:00 Room Air 02/12/23 20:00 Room Air 02/12/23 20:00 121/62 94 L Room Air 02/12/23 18:37 Room Air 02/12/23 16:51 Room Air 02/12/23 15:06 104/53 L 94 L Room Air 02/12/23 14:56 Room Air 02/12/23 12:58 Room Air 02/13/23 11:17 Intake and Output 02/12/23 02/13/23 02/13/23 23:59 07:59 15:59 Intake Total 540 / 2347 250 / 1250 1000 / 1250 Output Total 600 / 1475 850 / 850 0 / 850 Balance -60 / 872 -600 / 400 1000 / 400 Intake: Intake, Oral Amount 540 / 1260 0 / 0 0 / 0 Intake, Total IV Amount 250 / 1250 1000 / 1250 Lactated Ringers 1000ML 1,000 250 / 250 ml @ 50 mls/hr IV .Q20H [facility] Rx# :[id number] Output: Output, Urine Amount 600 / 1375 850 / 850 0 / 850 Other: Number of Unmeasured Voids 0 0 0 Weight 204 lb Patient Weight 02/13/23 23:59 Weight 204 lb I & O for Labs for Last 24 Hours: Intake & Output 02/10/23 02/11/23 02/12/23 02/13/23 23:59 23:59 23:59 23:59 Intake Total 2097 / 2347 1250 / 1250 Output Total 0 / 0 1475 / 1475 850 / 850 Balance 0 / 390 622 / 872 400 / 400 Weight 196 lb 5 oz 199 lb 1 oz 204 lb Comment:: Resting comfortably Respiratory: Present CTA bilaterally Cardiac: Present Regular Rhythm Comment:: brisk cap refill in left foot Assessment and Plan *Assessment and plan (1) Closed subcapital fracture of neck of left femur: Status: Acute Qualifiers: Encounter type: initial encounter Qualified Code(s): S72.012A - Unspecified intracapsular fracture of left femur, initial encounter for closed fracture Category: Medical Code(s): S72.012A - Unspecified intracapsular fracture of left femur, initial encounter for closed fracture (2) Osteopenia: Status: Acute Qualifiers: Osteopenia location: unspecified Qualified Code(s): M85.80 - Other specified disorders of bone density and structure, unspecified site Category: Medical Code(s): M85.80 - Other specified disorders of bone density and structure, unspecified site (3) Stage 3b chronic kidney disease (CKD): Status: Acute Category: Medical Code(s): N18.32 - Chronic kidney disease, stage 3b (4) Hypertension: Status: Acute Qualifiers: Hypertension type: primary hypertension Qualified Code(s): I10 - Essential (primary) hypertension Category: Medical Code(s): I10 - Essential (primary) hypertension (5) Elevated WBC count: Status: Acute Junito
--- NOTE | 2023-02-13 17:05 | PC.NURSE ---
A&OX4. TOLERATING RA WELL. PT DID HAVE PROCEDURE TO L HIP TODAY, TOLERATED WELL. DRESSING CDI. PT HAS SLEPT MAJORITY OF SHIFT SINCE ARRIVAL BACK TO FLOOR. NO C/O PAIN. F/C PRESENT DRAINING YELLOW URINE. AT BEDSIDE. VSS.
[2023-02-14] VITALS (7 sets, daily range): BP systolic 98–113; BP diastolic 40–54; PULSE 77–97; RESP 12–21; TEMP 36.4–37.3; O2SAT 94–100; BMI 30.3
--- NOTE | 2023-02-14 05:52 | PC.NURSE ---
Patient LCTA, VSS, no c/o pain at start of shift; however, patient states her legs are beginning to feel heavy and numb. Advised to be mindful of pain and to try to stay proactive and not let get out of control. Patient verb understanding. At midnight vital sign check, patient states she has rested fairly well; pain is 1/10 but is able to feel more in incision area. Discussed pain medication options as patient not wanting to wake up with pain out of control and agreed to take Tordol. Patient has rested well throughout night. Bed at lowest level; call light within reach.
[2023-02-14 07:17] LABS: Basophils % 0.1 % (0.1-2.0); Eosinophils % 0.2 % (0.1-12.0); Hematocrit 30.9 % (37.0-47.0); Hemoglobin 10.2 g/dL (12.2-16.2); Lymphocytes # 1.9 K/mm3 (0.7-4.5); Lymphocytes % 13.8 % (10-50); Mean Corpuscular HGB Conc 32.9 g/dL (31.8-35.4); Mean Corpuscular Hemoglobin 30.6 pg (27.0-31.2); Mean Corpuscular Volume 93.1 fl (81-99); Mean Platelet Volume 8.6 fl (7.4-10.4); Monocytes # 1.3 K/mm3 (0.1-1.0); Monocytes % 9.3 % (1.7-9.3); Neutrophils # 10.3 K/mm3 (1.8-7.8); Neutrophils % 76.5 % (37.0-80.0); Platelet Count 167 K/mm3 (142-424); Red Blood Count 3.32 M/mm3 (4.20-5.40); Red Cell Distribution Width 13.2 % (11.5-17.5); White Blood Count 13.5 K/mm3 (4.8-10.8)
--- NOTE | 2023-02-14 07:20 | EXP.ANES.II ---
[facility] Anesthesia Record Part II Anesthesia Record Part II Discharge Time: 11:40 Destination: Second Floor PACU nurse assessment reviewed?: Yes Patient Condition:: Good Anesthesia Complications:: None Swallowing reflex intact?: Yes Airway Patency: Patent Cyanosis?: No Blood Pressure: 98/40 SaO2: 99 Respiratory Rate: 12 Pulse Rate: 92 Temperature: 97.7 F Mental Status: Alert & Oriented Pain level:: 0 Nausea and/or vomitting:: None Intake, IV Amount: 0 Hydration: Adequate
[2023-02-14 07:23] LABS: Chloride 105 mmol/L (98-107); Sodium 137 mmol/L (136-145)
[2023-02-14 07:24] LABS: Potassium 3.4 mmoL/L (3.5-5.1)
[2023-02-14 07:26] LABS: Blood Urea Nitrogen 32 mg/dl (7-17); Creatinine Clearance Estimated 50 mL/min (50-200); Estimated Glomerular Filt Rate 32 ml/min (>60); GFR (African American) 39 ML/MIN (>60)
[2023-02-14 07:27] LABS: Anion Gap 13.4 mEq/L (5-15); Calcium 7.8 mg/dl (8.4-10.2); Carbon Dioxide 22 mmol/L (22.0-30.0); Glucose 127 mg/dl (74-100)
--- NOTE | 2023-02-14 07:57 | EXP.ACUTE.PN ---
Subjective *Date: 02/14/23 *Time: 09:34 Interval history: Postop #2 Patient states she is doing well. She was able to sleep last night. Pain medicine relieves her postoperative pain. She denies chest pain and shortness of breath. She uses incentive spirometer well. She has not been out of bed. She still has her Watters catheter. She is passing flatus but no stools. She is able to eat and drink without problems. Hemoglobin is 10.2 with hematocrit of 30.9. White blood cells are 13,500. Potassium is slightly low at 3.4. BUN is 32 and creatinine is 1.6. Negative urine culture thus far. Blood pressure sometimes is low with systolic c at 99 this AM. Medical Exam Vital signs and Labs for Last 24 Hours: Vital Signs Temp Pulse Pulse Resp BP BP Pulse Ox 02/14/23 06:56 02/14/23 05:00 02/14/23 04:00 99.2 F 84 18 99/49 L 95 02/14/23 03:00 02/14/23 03:00 02/14/23 01:00 02/14/23 00:00 98.7 F 84 18 113/53 L 94 L 02/13/23 23:00 02/13/23 21:00 02/13/23 20:00 02/13/23 20:00 98.1 F 71 18 109/51 L 96 02/13/23 18:30 98.0 F 72 17 115/56 L 95 02/13/23 18:46 02/13/23 17:30 98.1 F 76 17 112/59 L 93 L 02/13/23 16:30 98.2 F 72 16 113/52 L 93 L 02/13/23 15:30 98.1 F 74 17 113/57 L 97 02/13/23 14:30 98.0 F 81 17 107/54 L 97 02/13/23 14:00 98.1 F 81 16 102/59 L 96 02/13/23 13:30 98.3 F 84 15 101/57 L 95 02/13/23 13:00 98.0 F 83 15 98/53 L 95 02/13/23 12:30 98.0 F 84 14 96/49 L 93 L 02/13/23 12:15 98.1 F 87 15 99/54 L 93 L 02/13/23 12:00 98.1 F 85 15 110/55 L 96 02/13/23 11:45 98.1 F 96 H 14 100/40 L 94 L 02/13/23 16:53 02/13/23 14:34 02/13/23 12:41 02/13/23 11:40 92 H 12 98/55 L 99 02/13/23 11:30 95 H 12 100/50 L 99 02/13/23 11:20 95 H 12 95/47 L 98 02/13/23 11:10 97.7 F 87 16 107/56 L 98 02/13/23 08:00 02/14/23 07:21 12 02/13/23 11:17 97.7 F 87 16 107/56 L O2 Del Method O2 Flow Rate 02/14/23 06:56 Room Air 02/14/23 05:00 Room Air 02/14/23 04:00 Room Air 02/14/23 03:00 Room Air 02/14/23 03:00 Room Air 02/14/23 01:00 Room Air 02/14/23 00:00 02/13/23 23:00 Room Air 02/13/23 21:00 Room Air 02/13/23 20:00 Room Air 02/13/23 20:00 Room Air, Nasal Cannula 02/13/23 18:30 Room Air 02/13/23 18:46 Room Air 02/13/23 17:30 Room Air 02/13/23 16:30 Room Air 02/13/23 15:30 Room Air 02/13/23 14:30 Nasal Cannula 1 02/13/23 14:00 Nasal Cannula 2 02/13/23 13:30 Nasal Cannula 2 02/13/23 13:00 Nasal Cannula 2 02/13/23 12:30 Room Air 02/13/23 12:15 Nasal Cannula 2 02/13/23 12:00 Nasal Cannula 2 02/13/23 11:45 Nasal Cannula 2 02/13/23 16:53 Room Air 02/13/23 14:34 Nasal Cannula 1 02/13/23 12:41 Nasal Cannula 2 02/13/23 11:40 Nasal Cannula 2 02/13/23 11:30 Nasal Cannula 2 02/13/23 11:20 Nasal Cannula 2 02/13/23 11:10 Nasal Cannula 2 02/13/23 08:00 Room Air 08/28/23 07:21 02/13/23 11:17 Intake and Output 02/13/23 02/14/23 02/14/23 19:59 03:59 11:59 Intake Total 270 / 270 600 / 870 Output Total 200 / 200 525 / 725 Balance 70 / 70 75 / 145 Intake: Intake, Oral Amount 270 / 270 Intake, Total IV Amount 600 / 600 Lactated Ringers 1000ML 1,000 600 / 600 ml @ 50 mls/hr IV .Q20H [facility] Rx# :[id number] Output: Output, Urine Amount 0 / 0 525 / 525 Output, Urine Amount (Catheter) 200 / 200 Watters 200 / 200 Other: Number of Unmeasured Voids 0 0 0 Weight 212 lb 1 oz Patient Weight 02/14/23 11:59 Weight 212 lb 1 oz Laboratory Results - last 24 hr 02/14/23 06:39: WBC 13.5 H, RBC 3.32 L, Hgb 10.2 L, Hct 30.9 L, MCV 93.1, MCH 30.6, MCHC 32.9, RDW 13.2, Plt Count 167 D, MPV 8.6, Neut % (Auto) 76.5, Lymph % (Auto) 13.8, [place] % (Auto) 9.3, Eos % (Auto) 0.2, Baso % (Au
--- NOTE | 2023-02-14 11:16 | HMH.OTEV ---
OT Inpatient Evaluation Rehab OT IP Evaluation Start: 02/13/23 11:23 Freq: ONCE Status: Active Protocol: Document 02/14/23 11:08 LIZ (Rec: 02/14/23 11:16 LIZ [id number]) Rehab OT IP Assessment Subjective History 72-year-old female who fell from ground-level fall and suffered a displaced femoral neck. Patient underwent a left hemiarthoplasty on 02/13/23. Patient lives in 1 story home with . Independent with ADLs and fx'l mobility prior to fall. Subjective I would like to get up. Instructed Patient on proper hand and foot placement to coplete bed mobility from supine->sit @ EOB->stand with usage of RW. Instructed Patient on participating in fx 'l mobility with usage of RW to complete SPT from EOB-> recliner requiring Min A x2. Left Patient sitting upright in chair with needs met at end of session. Objective Patient Orientation Person,Place,Name,Year Upper Extremity Gross ROM WFL Bed Mobility bed mobility - supine/sit Assist Level Minimal x 2 (25% assist) Transfer Training Sit/Stand/Pivot Transfer Assist Level Minimal x 2 (25% assist) Chair Transfer Ability Minimal x 2 (25% assist) Chair Transfer Technique Sit to/from Ambulatory Chair Transfer Assistive Devices Rolling Walker Lower Body Dressing Ability Unable/Dependant Rehab OT IP prob,goals,plan Problems Date of Evaluation: 02/14/23 OT IP Problems Bed Mobility,Transfers,Balance ,Self care,Safety Rehab Potential Rehab Potential Good Equipment Needs Assistive Devices Rolling / Wheeled Walker Plan OT intervention Plan Bed Mobility,Transfers,Balance ,Self care,Safety,Therapeutic Exercise OT Plan Frequency Daily Duration LOS Discharge Goals Bed Mobility Ability Assistance x1 Sit to Stand Chair Transfer Ability Minimal x 1 (25% assist) Chair Transfer Ability Minimal x 1 (25% assist) Chair Transfer Technique Stand Step Pivot Chair Transfer Assistive Devices Rolling Walker Lower Body Dressing Ability
--- NOTE | 2023-02-14 11:23 | EXP.ORTH.PN ---
Subjective *Date: 02/14/23 *Time: 11:23 Interval history: Patient doing well. Up to chair. Pain controlled with meds. Ortho Exam (Inpt) Vital signs and Labs for Last 24 Hours: Temp Pulse Resp BP Pulse Ox O2 Del Method O2 Flow Rate 98.4 F 85 21 108/46 L 98 Room Air 1 02/14/23 08:00 02/14/23 08:00 02/14/23 08:00 02/14/23 08:00 02/14/23 08:00 02/14/23 10:45 02/13/23 14:34 Laboratory Results - last 24 hr 02/14/23 06:39: WBC 13.5 H, RBC 3.32 L, Hgb 10.2 L, Hct 30.9 L, MCV 93.1, MCH 30.6, MCHC 32.9, RDW 13.2, Plt Count 167 D, MPV 8.6, Neut % (Auto) 76.5, Lymph % (Auto) 13.8, [place] % (Auto) 9.3, Eos % (Auto) 0.2, Baso % (Auto) 0.1, Neut # (Auto) 10.3 H, Lymph # (Auto) 1.9, [place] # (Auto) 1.3 H, Eos # (Auto) 0.0, Baso # (Auto) 0.0, Sodium 137, Potassium 3.4 L, Chloride 105, Carbon Dioxide 22, Anion Gap 13.4, BUN 32 H, Creatinine 1.60 H, Estimated Creat Clear 50, Estimated GFR 32 L, Est GFR ( Amer) 39 L, Glucose 127 H, Calcium 7.8 L I & O for Labs for Last 24 Hours: Intake & Output 02/11/23 02/12/23 02/13/23 02/14/23 23:59 23:59 23:59 23:59 Intake Total 2097 / 2347 1520 / 1520 840 / 840 Output Total 0 / 0 1475 / 1475 1050 / 1050 525 / 525 Balance 0 / 390 622 / 872 470 / 470 315 / 315 Weight 196 lb 5 oz 199 lb 1 oz 204 lb 212 lb 1.002 oz Microbiology Reports for the Last 24 Hours: Microbiology 02/12/23 08:26 Urine,Catheterized Urine Culture - Preliminary NO GROWTH AFTER 24 HOURS Additional findings:: LEFT HIP: Dressing intact. Compartments soft. Assessment and Plan *Assessment and plan (1) S/P hip hemiarthroplasty: Problem Comment: LEFT Status: Acute Category: Surgical Code(s): Z96.649 - Presence of unspecified artificial hip joint Plan Progress with PT as able. OK for rehab from ortho standpoint once medically able. Will followup in clinic 2 weeks after discharge for staple removal. Continue ASA BID for 6 weeks for DVT proph. unless not tolerated. WBAT.
--- NOTE | 2023-02-14 11:30 | HMH.PTEV ---
Physical Therapy Evaluation Rehab PT IP Evaluation Start: 02/13/23 11:23 Freq: ONCE Status: Active Protocol: Document 02/14/23 09:30 PHORNE (Rec: 02/14/23 11:29 PHORNE [id number]) Subjective/History History History 72 yowf adm to [facility] after ground level fall with resulting L femur fx, now S/P L hip MARTIN. She has hx of HTN, HLD, and CKD. She reports she is generally independent with all mobility prior to adm, she lives with spouse, 1-2 steps to enter the home. Subjective Subjective Pt reports pain as expected post-op, she is eager to mobilize. Rehab PT IP Eval Objective Appearance Patient Behavior Appropriate Patient Orientation Person,Place,Time Difficulty following instructions none Speech Pattern Clear Ambulation Patient Able to Ambulate Yes Ambulation Observation IP General Gait Pattern Observation Antalgic Gait Ambulation Distance (feet) 10 Ambulation Assistive Device Rolling Walker Ambulation Ability Contact Guard/Hand Hold Balance Ability to Arise Able, uses arms to help Sitting Balance Steady, safe Standing Balance Steady, wide stance Dynamic Sitting Balance Ability Good Dynamic Standing Balance Ability Good Transfers Bed Transfer Ability Minimal x 1 (25% assist) Chair Transfer Ability Contact Guard/Hand Hold Sit to Stand Bed Transfer Ability Contact Guard/Hand Hold Sit to Stand Chair Transfer Ability Contact Guard/Hand Hold ROM All Extremities PT ROM Status WFL MMT All Extremities PT MMT WFL Abnormal MMT Grade L LE grossly >3/5 throughout Rehab PT IP prob,goals,plan Problems Date of Evaluation: 02/14/23 PT IP Problems Bed Mobility,Transfers,Gait Rehab Potential Rehab Potential Good Equipment Needs Assistive Devices Rolling / Wheeled Walker Plan PT Intervention Plan Bed Mobility,Transfers,Gait, Therapeutic Exercise PT Plan Frequency BID Duration LOS Discharge Goals Bed Transfer Ability Contact Guard/Hand Hold Sit to Stand Chair Transfer Ability Supervision/Stand by Ambulation Assistive Device Rolling Walker Ambulation Distance (feet) 30 Discharge Plan PT Discharge Plan Pt is currently appropriate to return home once medically
--- NOTE | 2023-02-14 12:00 | SW/DCPLANNER ---
Addendum entered by Maddy Kang 02/15/23 09:39: I have verified mc/ Ivan that home health services will start tomorrow. Patient will discharge home today. Addendum entered by Maddy Kang 02/14/23 15:09: Home health services will start Tuesday for this patient. Addendum entered by Maddy Kang 02/14/23 15:01: Per Karol Love patient has been accepted for home health services once medically stable for discharge. Original Note: Patient currently resides at home with her . PT/OT evaluated patient and recommended returning home w/ home health services. Patient is agreeable to home health services and prefers to use [facility]. Patient information/order will be faxed to Karol Love. I will follow up mc/ Karol once information/order is reviewed. Patient will discharge home this afternoon.
--- NOTE | 2023-02-14 13:24 | PC.NURSE ---
PT IS RESTING IN BED WITH FAMILY AT BEDSIDE. ALERT AND ORIENTED X4. PT TOLERATED SITTING UP IN THE CHAIR FOR SEVERAL HOURS THIS SHIFT AND HAS BEEN AMBULATING TO THE BATHROOM CONTACT GUARD ASSIST. DRESSING TO THE LEFT HIP C/D/I. LUNG SOUNDS CLEAR. ABDOMEN SOFT/NON TENDER WITH ACTIVE BOWEL SOUNDS. KRISTINE HAS DELIVERED PT'S WALKER. WILL CONTINUE TO MONITOR.
[2023-02-14 19:21] LABS: Basophils % 0.2 % (0.1-2.0); Eosinophils # 0.1 K/mm3 (0.0-0.4); Eosinophils % 0.4 % (0.1-12.0); Hematocrit 28.4 % (37.0-47.0); Hemoglobin 9.4 g/dL (12.2-16.2); Lymphocytes # 1.8 K/mm3 (0.7-4.5); Lymphocytes % 12.8 % (10-50); Mean Corpuscular Hemoglobin 30.5 pg (27.0-31.2); Mean Corpuscular Volume 92.5 fl (81-99); Mean Platelet Volume 9.1 fl (7.4-10.4); Monocytes # 1.1 K/mm3 (0.1-1.0); Monocytes % 7.9 % (1.7-9.3); Neutrophils # 11.3 K/mm3 (1.8-7.8); Neutrophils % 78.7 % (37.0-80.0); Platelet Count 164 K/mm3 (142-424); Red Blood Count 3.07 M/mm3 (4.20-5.40); Red Cell Distribution Width 13.3 % (11.5-17.5); White Blood Count 14.3 K/mm3 (4.8-10.8)
[2023-02-14 19:23] LABS: Chloride 108 mmol/L (98-107); Sodium 139 mmol/L (136-145)
[2023-02-14 19:26] LABS: Blood Urea Nitrogen 30 mg/dl (7-17); Creatinine Clearance Estimated 50 mL/min (50-200); Estimated Glomerular Filt Rate 32 ml/min (>60); GFR (African American) 39 ML/MIN (>60)
[2023-02-14 19:27] LABS: Calcium 8.1 mg/dl (8.4-10.2); Carbon Dioxide 22 mmol/L (22.0-30.0); Glucose 148 mg/dl (74-100)
[2023-02-15 04:00] VITALS: BP 110/48; PULSE 81; RESP 18; TEMP 37.8; O2SAT 95; BMI 29.8
--- NOTE | 2023-02-15 06:47 | PC.NURSE ---
Pt has had no complaints this shift. Pt has ambulated to bathroom with 1-2 person assist, tolerated fair. Pt did have pain with ambulation but did not want any medication for the pain. Pt had BM this shift, and voided per toilet. Pt had no other complaints. Dressing to left hip CDI
--- NOTE | 2023-02-15 06:50 | PC.NURSE ---
pt medicated per mar for temp 100.0
--- NOTE | 2023-02-15 06:51 | XR_ITS ---
FINAL REPORT CLINICAL HISTORY: leukocytosis COMPARISON: February 11, 2023 FINDINGS: The heart size is normal. The mediastinum is within normal limits. The the lungs are underinflated. There is mild chronic change in the right lung base. There is no pleural effusion. There is no pneumothorax. The bony thorax is intact. IMPRESSION: No acute cardiopulmonary process. Reviewed, Interpreted and Dictated by Harinder Vivas MD Transcribed by Ruben Downing Authenticated and [facility]
[2023-02-15 07:03] LABS: Basophils % 0.2 % (0.1-2.0); Eosinophils # 0.1 K/mm3 (0.0-0.4); Eosinophils % 0.9 % (0.1-12.0); Hematocrit 26.2 % (37.0-47.0); Hemoglobin 8.9 g/dL (12.2-16.2); Lymphocytes # 1.4 K/mm3 (0.7-4.5); Lymphocytes % 12.2 % (10-50); Mean Corpuscular HGB Conc 34.1 g/dL (31.8-35.4); Mean Corpuscular Hemoglobin 31.5 pg (27.0-31.2); Mean Corpuscular Volume 92.3 fl (81-99); Mean Platelet Volume 8.8 fl (7.4-10.4); Neutrophils # 8.9 K/mm3 (1.8-7.8); Neutrophils % 77.7 % (37.0-80.0); Platelet Count 155 K/mm3 (142-424); Red Blood Count 2.84 M/mm3 (4.20-5.40); Red Cell Distribution Width 13.3 % (11.5-17.5); White Blood Count 11.5 K/mm3 (4.8-10.8)
[2023-02-15 07:07] LABS: Chloride 110 mmol/L (98-107); Sodium 138 mmol/L (136-145)
[2023-02-15 07:10] LABS: Blood Urea Nitrogen 29 mg/dl (7-17); Calcium 7.9 mg/dl (8.4-10.2); Carbon Dioxide 23 mmol/L (22.0-30.0); Creatinine Clearance Estimated 56 mL/min (50-200); Estimated Glomerular Filt Rate 37 ml/min (>60); GFR (African American) 45 ML/MIN (>60); Glucose 103 mg/dl (74-100)
--- NOTE | 2023-02-15 07:46 | EXP.ACUTE.PN ---
Subjective *Date: 02/15/23 *Time: 09:01 Interval history: Patient states she feels better today. She is proud because she was able to walk to the bathroom without problems. Physical therapy worked with her yesterday and she was up in the chair. She states she did run a fever last night it was 100 and received Tylenol. Blood for cultures drawn. She is also had a chest x-ray this a.m. with pending results.. She has been diaphoretic. She would like to go home today. Plans to work with physical therapy and home health. She has been eating as usual. Bowels have moved. She is voiding QS. Blood work this morning show a hemoglobin of 8.9 hematocrit of 26.2. White blood cell count has decreased to 11.5. BUN is 21 and creatinine is 1.4. Medical Exam Vital signs and Labs for Last 24 Hours: Vital Signs Temp Pulse Resp BP Pulse Ox O2 Del Method 02/15/23 06:44 Room Air 02/15/23 05:00 Room Air 02/15/23 04:00 100.0 F H 81 18 110/48 L 95 Room Air 02/15/23 03:00 Room Air 02/15/23 01:00 Room Air 02/14/23 23:00 Room Air 02/14/23 21:00 Room Air 02/14/23 20:00 99.0 F 77 18 109/54 L 96 Room Air 02/14/23 19:59 Room Air 02/14/23 19:00 Room Air 02/14/23 16:00 97.7 F 97 H 19 102/40 L 100 Room Air 02/14/23 17:00 Room Air 02/14/23 14:44 Room Air 02/14/23 12:00 97.6 F 81 18 101/46 L 94 L Room Air 02/14/23 12:52 Room Air 02/14/23 10:45 Room Air 02/14/23 08:00 Room Air 02/14/23 09:00 Room Air 02/14/23 08:00 98.4 F 85 21 108/46 L 98 Room Air Intake and Output 02/14/23 02/15/23 02/15/23 19:59 03:59 11:59 Intake Total 720 / 720 Output Total 300 / 300 0 / 300 Balance 420 / 420 0 / 420 Intake: Intake, Oral Amount 720 / 720 Output: Output, Urine Amount 0 / 0 Output, Urine Amount (Catheter) 300 / 300 Watters 300 / 300 Other: Number of Unmeasured Voids 1 Number of Bowel Movements 1 Weight 208 lb 6 oz Patient Weight 02/15/23 11:59 Weight 208 lb 6 oz Laboratory Results - last 24 hr 02/14/23 19:08: WBC 14.3 H, RBC 3.07 L, Hgb 9.4 L, Hct 28.4 L, MCV 92.5, MCH 30.5, MCHC 33.0, RDW 13.3, Plt Count 164, MPV 9.1, Neut % (Auto) 78.7, Lymph % (Auto) 12.8, [place] % (Auto) 7.9, Eos % (Auto) 0.4, Baso % (Auto) 0.2, Neut # (Auto) 11.3 H, Lymph # (Auto) 1.8, [place] # (Auto) 1.1 H, Eos # (Auto) 0.1, Baso # (Auto) 0.0, Sodium 139, Potassium 4.0, Chloride 108 H, Carbon Dioxide 22, Anion Gap 13.0, BUN 30 H, Creatinine 1.60 H, Estimated Creat Clear 50, Estimated GFR 32 L, Est GFR ( Amer) 39 L, Glucose 148 H, Calcium 8.1 L 02/15/23 06:25: WBC 11.5 H, RBC 2.84 L, Hgb 8.9 L, Hct 26.2 L, MCV 92.3, MCH 31.5 H, MCHC 34.1, RDW 13.3, Plt Count 155, MPV 8.8, Neut % (Auto) 77.7, Lymph % (Auto) 12.2, [place] % (Auto) 9.0, Eos % (Auto) 0.9, Baso % (Auto) 0.2, Neut # (Auto) 8.9 H, Lymph # (Auto) 1.4, [place] # (Auto) 1.0, Eos # (Auto) 0.1, Baso # (Auto) 0.0, Sodium 138, Potassium 4.0, Chloride 110 H, Carbon Dioxide 23, Anion Gap 9.0, BUN 29 H, Creatinine 1.40 H, Estimated Creat Clear 56, Estimated GFR 37 L, Est GFR ( Amer) 45 L, Glucose 103 H D, Calcium 7.9 L I & O for Labs for Last 24 Hours: Intake & Output 02/12/23 02/13/23 02/14/23 02/15/23 11:59 11:59 11:59 11:59 Intake Total 1077 / 1077 2270 / 2270 1110 / 1110 720 / 720 Output Total 775 / 775 1550 / 1550 725 / 725 300 / 300 Balance 302 / 302 720 / 720 385 / 385 420 / 420 Weight 199 lb 1 oz 204 lb 212 lb 1.002 oz 208 lb 6 oz Microbiology Reports for the Last 24 Hours: Microbiology 02/12/23 08:26 Urine,Catheterized Urine Culture - Final NO GROWTH AFTER 48 HOURS Constitutional: Present no acute distress Comment:: Sitting up in the bed and feels very comfortable. Conversant Respiratory: Present CTA bilaterally (Anteriorly and posteriorly) Cardiac: Present Regular Rate GI: Present soft and normal bowel sounds; Absent dis
[2023-02-15 08:00] VITALS: BP 113/65; PULSE 86; RESP 19; TEMP 36.9; O2SAT 95
--- NOTE | 2023-02-16 08:57 | EXP.DC.SUM ---
General Admission date:: 02/11/23 Discharge date: 02/15/23 HPI HPI HPI: Ms. Burks is a 72 year old female patient of [facility], who see Dr. Danielson for her primary care, who presented to [facility] ER last night after falling at home. She had a ground level fall in her kitchen after tripping on the corner of a rug. She did not lose consciousness. She was unable to bear weight so she came to the ER for an evaluation. She was evaluated by the ER doctor and found to have a left proximal femur fracture. Dr. Awad from orthopedics was consulted and saw patient last night. He is planning on performing a total left hip replacement. Patient has no concerns at this time and is ready to have surgery. Hospital Course Hospital Course Hospital Course: The patient was admitted for further management of her proximal left femur fracture. She was taken to the OR by Dr. Awad on 02/13/2023 and had a hemiarthroplasty of the left hip. She was started on Rocephin for probable UTI. Physical therapy was ordered postop and p.o. potassium was added for hypokalemia. Her pain was controlled with pain medication. She was able to get up in a chair by 02/14/2023. Ortho felt she could be discharged once medically stable. She will need to follow-up in their clinic for staple removal. She will need to remain on aspirin twice daily for 6 weeks for DVT prophylaxis. By 02/15/2023, she was able to walk to the bathroom without problems. She did run a fever through the night and blood cultures were drawn and are still pending. She was discharged home and will have home health physical therapy. Exam Data for Last 24 hours Vital signs and Labs for Last 24 Hours: Temp Pulse Resp BP Pulse Ox O2 Del Method O2 Flow Rate 98.5 F 86 19 113/65 95 Room Air 1 02/15/23 08:00 02/15/23 08:00 02/15/23 08:00 02/15/23 08:00 02/15/23 08:00 02/15/23 09:00 02/13/23 14:34 I & O for Last 24 hours: Intake & Output 02/13/23 02/14/23 02/15/23 02/16/23 11:59 11:59 11:59 11:59 Intake Total 2270 / 2270 1110 / 1110 1080 / 1080 Output Total 1550 / 1550 725 / 725 300 / 300 Balance 720 / 720 385 / 385 780 / 780 Weight 204 lb 212 lb 1.002 oz 208 lb 6 oz DS: Diagnosis Discharge Diagnosis (1) S/P hip hemiarthroplasty: Status: Acute Code(s): Z96.649 - Presence of unspecified artificial hip joint Problem details: LEFT (2) UTI (urinary tract infection): Status: Acute Code(s): N39.0 - Urinary tract infection, site not specified (3) Hypokalemia: Status: Acute Code(s): E87.6 - Hypokalemia (4) Elevated WBC count: Status: Acute Code(s): D72.829 - Elevated white blood cell count, unspecified Qualifiers: Leukocytosis type: unspecified Qualified Code(s): D72.829 - Elevated white blood cell count, unspecified (5) Osteopenia: Status: Acute Code(s): M85.80 - Other specified disorders of bone density and structure, unspecified site Qualifiers: Osteopenia location: unspecified Qualified Code(s): M85.80 - Other specified disorders of bone density and structure, unspecified site (6) Stage 3b chronic kidney disease (CKD): Status: Acute Code(s): N18.32 - Chronic kidney disease, stage 3b (7) Hypertension: Status: Acute Code(s): I10 - Essential (primary) hypertension Qualifiers: Hypertension type: primary hypertension Qualified Code(s): I10 - Essential (primary) hypertension (8) Closed subcapital fracture of neck of left femur: Status: Acute Code(s): S72.012A - Unspecified intracapsular fracture of left femur, initial encounter for closed fracture Qualifiers: Encounter type: initial encounter Qualified Code(s): S72.012A - Unspecified intracapsular fracture of left femur, initial encounter for closed fracture (9) Postoperative fever: Status: Acute Code(s): R50.82 - Postprocedural fever M
--- NOTE | 2023-02-16 14:56 | CARE MANAGER ---
Contacted patient related to hospital discharge. She states she is doing better since getting home. She picked up her medications. Home health is currently there and the call was kept short due to this. RUBÉN Hedaley
== END 2023-02-15 11:22 | disposition home health service (06) | DRG 522 ==
LOC: ER 19:44 → 2ND 02-12 02:26
PROVIDERS: Family Medicine; Orthopaedic Surgery; Admitting Provider Internal Medicine Adolescent Medicine; Emergency Provider Emergency Medicine; PCP Family Medicine; Visit Provider Family Medicine
PROC: 0SRS0JA Replacement of Left Hip Joint, Femoral Surface with Synthetic Substitute, Uncemented, Open Approach (ICD-10-PCS; principal; 2023-02-13 08:00)
DX: S72.012A Unspecified intracapsular fracture of left femur, initial encounter for closed fracture (principal); N39.0 Urinary tract infection, site not specified; M85.80 Other specified disorders of bone density and structure, unspecified site; N18.32 Chronic kidney disease, stage 3b; E87.6 Hypokalemia; F41.9 Anxiety disorder, unspecified; F32.A Depression, unspecified; I12.9 Hypertensive chronic kidney disease with stage 1 through stage 4 chronic kidney disease, or unspecified chronic kidney disease
CPT/HCPCS: 27236; 36415; 70450; 71045; 72125; 72128; 72131; 72192; 73502; 73552; 73560; 73590; 73700; 80048; 81001; 85007; 85025; 87040; 87086; 93005; 97110; 97163; 97165; 97535; 99285; C1776; J0131; J0696; J2405

== ENCOUNTER → 2023-02-22 15:13 | Outpatient (CLI) | payer MEDICARE, OTHER, SELFPAY ==
--- NOTE | 2023-02-22 15:20 | CA_ITS ---
FINAL REPORT TECHNIQUE: Ultrasound images of the deep venous system were obtained from the left groin to the calf veins. CLINICAL HISTORY: 1 week s/p Left hip FX, Left LE edema/pain FINDINGS: There is DVT of the proximal DFV/Profunda at bifurcation. The remaining deep venous system is normally compressible. Normal flow is identified. IMPRESSION: Left lower extremity DVT as above. The patient's physician Dr. Danielson was notified at 4:12 PM by the fibre technologist. Reviewed, Interpreted and Dictated by Russ Hernandez III, MD Transcribed by Ruben Downing Authenticated and [facility]
== END ==
PROVIDERS: PCP Family Medicine; Visit Provider Family Medicine
DX: M79.605 Pain in left leg (principal); R60.0 Localized edema; M25.552 Pain in left hip; Z96.642 Presence of left artificial hip joint
CPT/HCPCS: 93971

== ENCOUNTER → 2023-02-24 10:13 | Outpatient (CLI) | payer MEDICARE, OTHER, SELFPAY ==
--- NOTE | 2023-02-24 10:17 | XR_ITS ---
FINAL REPORT CLINICAL HISTORY: lt hip pain COMPARISON: 02/13/2023 FINDINGS: LEFT HIP: Two views of the left hip demonstrate postoperative changes from left hip arthroplasty. There is no acute bony abnormality. There are mild degenerative changes of the right hip and lower lumbar spine. The visualized bony structures are well aligned. No soft tissue abnormality is seen. IMPRESSION: Postoperative and degenerative changes without acute bony abnormality. Reviewed, Interpreted and Dictated by Russ Hernandez III, MD Transcribed by Linda Garcia Authenticated and [facility]
== END ==
PROVIDERS: PCP Family Medicine; Visit Provider Orthopaedic Surgery
DX: M25.552 Pain in left hip (principal); Z96.642 Presence of left artificial hip joint
CPT/HCPCS: 73502

== ENCOUNTER → 2023-03-08 12:22 | Outpatient (CLI) | payer MEDICARE, OTHER, SELFPAY ==
[2023-03-08 12:44] LABS: Basophils # 0.1 K/mm3 (0-0.2); Basophils % 0.7 % (0.1-2.0); Eosinophils # 0.2 K/mm3 (0.0-0.4); Eosinophils % 1.3 % (0.1-12.0); Hematocrit 32.8 % (37.0-47.0); Hemoglobin 10.4 g/dL (12.2-16.2); Lymphocytes # 2.8 K/mm3 (0.7-4.5); Lymphocytes % 24.9 % (10-50); Mean Corpuscular HGB Conc 31.8 g/dL (31.8-35.4); Mean Corpuscular Hemoglobin 28.9 pg (27.0-31.2); Mean Corpuscular Volume 90.9 fl (81-99); Mean Platelet Volume 7.8 fl (7.4-10.4); Monocytes % 8.5 % (1.7-9.3); Neutrophils # 7.2 K/mm3 (1.8-7.8); Neutrophils % 64.7 % (37.0-80.0); Platelet Count 451 K/mm3 (142-424); Red Blood Count 3.61 M/mm3 (4.20-5.40); Red Cell Distribution Width 13.8 % (11.5-17.5); White Blood Count 11.2 K/mm3 (4.8-10.8)
[2023-03-08 13:06] LABS: Erythrocyte Sedimentation Rate 82 mm/hr (0-30)
[2023-03-09 12:47] LABS: C-Reactive Protein 4.8 mg/L (0-4)
== END ==
PROVIDERS: PCP Family Medicine; Visit Provider Orthopaedic Surgery
DX: M85.80 Other specified disorders of bone density and structure, unspecified site; Z96.642 Presence of left artificial hip joint
CPT/HCPCS: 36415; 85025; 85651; 86140

== ENCOUNTER → 2023-03-17 10:34 | Outpatient (CLI) | payer MEDICARE, OTHER, SELFPAY ==
--- NOTE | 2023-03-17 10:38 | XR_ITS ---
FINAL REPORT CLINICAL HISTORY: Lt hip pain ROMAIN on 02/13 FINDINGS: AP and frog leg views of the left hip were obtained. There is no prior exam for comparison. There are postoperative changes from left hip arthroplasty. The hardware appears intact. No acute osseous abnormality is seen. There is degenerative disease of the right hip. No acute soft tissue abnormality is seen. IMPRESSION: Postoperative changes from left hip arthroplasty with no evidence of hardware complication. Reviewed, Interpreted and Dictated by Jade Scruggs MD Transcribed by Rika Sifuentes Authenticated and [facility]
== END ==
PROVIDERS: PCP Family Medicine; Visit Provider Orthopaedic Surgery
DX: Z96.649 Presence of unspecified artificial hip joint (principal); Z48.89 Encounter for other specified surgical aftercare
CPT/HCPCS: 73502

== ENCOUNTER → 2023-04-28 09:43 | Outpatient (CLI) | payer MEDICARE, OTHER, SELFPAY ==
[2023-04-28 09:57] LABS: Microscopic, Urine URINE MICROSCOPIC (MICROSCOPIC)
[2023-04-28 10:28] LABS: Hematocrit 32.3 % (37.0-47.0); Hemoglobin 11.1 g/dL (12.2-16.2); Mean Corpuscular HGB Conc 34.3 g/dL (31.8-35.4); Mean Corpuscular Hemoglobin 30.4 pg (27.0-31.2); Mean Corpuscular Volume 88.6 fl (81-99); Platelet Count 238 K/mm3 (142-424); Red Blood Count 3.65 M/mm3 (4.20-5.40); Red Cell Distribution Width 14.2 % (11.5-17.5); White Blood Count 7.8 K/mm3 (4.8-10.8)
[2023-04-28 10:43] LABS: Appearance,Urine CLEAR (Clear); Bilirubin,Urine Negative (Negative); Blood, Urine Negative (Negative); Color,Urine YELLOW (Yellow); Glucose,Urine (UA) Negative (Negative); Ketones,Urine Negative (Negative); Leukocyte Esterase,Urine TRACE (Negative); Nitrate,Urine Negative (Negative); Protein,Urine Negative (Negative); Specific Gravity, Urine 1.015 (1.005-1.030); Urobilinogen,Urine 0.2 EU/dl (0.2)
[2023-04-28 10:56] LABS: Albumin Level 4.1 g/dl (3.5-5.0); Blood Urea Nitrogen 26 mg/dl (7-17); Calcium 9.2 mg/dl (8.4-10.2); Carbon Dioxide 24 mmol/L (22.0-30.0); Chloride 105 mmol/L (98-107); Estimated Glomerular Filt Rate 44 ml/min (>60); GFR (African American) 54 ML/MIN (>60); Glucose 102 mg/dl (74-100); Phosphorous 3.8 mg/dl (2.5-4.5); Sodium 141 mmol/L (136-145)
[2023-04-28 11:17] LABS: Squamous Epithelial Cell,Urine Occasional #/hpf (0-5); WBC,Urine Occasional #/hpf (0-3)
[2023-04-28 12:16] LABS: Creatinine,Urine Random 105 mg/dL (Not Estab.)
== END ==
PROVIDERS: PCP Family Medicine; Visit Provider Internal Medicine Nephrology
DX: N18.31 Chronic kidney disease, stage 3a (principal)
CPT/HCPCS: 36415; 80069; 81001; 82570; 84155; 85014; 85018; 85048; 85049

== ENCOUNTER 2023-06-28 08:08 | Outpatient (CLI) | payer MEDICARE, OTHER, SELFPAY ==
--- NOTE | 2023-06-28 08:14 | XR_ITS ---
FINAL REPORT CLINICAL HISTORY: left hip kate February 13, 2023 follow up FINDINGS: Left hip Three views were obtained. There is no acute fracture or dislocation. Patient is status post left hip arthroplasty. There are mild degenerative changes of the right hip and lower lumbar spine. IMPRESSION: Degenerative and postoperative findings as above. Reviewed, Interpreted and Dictated by Russ Hernandez III, MD Transcribed by Rosa Cannon Authenticated and [facility]
== END 2023-06-28 23:59 ==
LOC: RAD 08:10
PROVIDERS: PCP Family Medicine; Visit Provider Orthopaedic Surgery
DX: M25.552 Pain in left hip; Z96.642 Presence of left artificial hip joint
CPT/HCPCS: 73502

== ENCOUNTER 2023-10-24 14:32 | Outpatient (CLI) | payer MEDICARE, OTHER, SELFPAY ==
--- NOTE | 2023-10-24 14:36 | MM_ITS ---
PROCEDURE INFORMATION: Exam: MG Bilateral Screening 3D Mammography Exam date and time: 10/24/2023 2:31 PM Age: 73 years old Clinical indication: Screening. No family history of breast cancer. TECHNIQUE: Imaging protocol: Bilateral Screening tomosynthesis and 2D mammography including computer-aided detection (CAD) when performed. COMPARISON: 1. MG MM DIG MAMM DX UNILAT RT CAD 09/09/2022 1:16 PM 2. MG MM DIG MAMM DX UNILAT RT CAD 02/10/2022 2:01 PM 3. MG MM DIG SCREENING MAMM BI W/CAD 01/14/2022 9:35 AM 4. MG SCBI MM Dig screening mamm BI w/CAD 07/05/2018 10:22 AM FINDINGS: MAMMOGRAPHY: Breast composition: There are scattered areas of fibroglandular density. Mass: None. Architectural distortion: None. Calcifications: No suspicious calcifications. Asymmetric density: [place] thing asymmetry Skin thickening: None. Axillary adenopathy: None. IMPRESSION: No mammographic evidence of malignancy. Annual screening is recommended unless otherwise clinically indicated. ASSESSMENT: BI-RADS Category 1: Negative
== END 2023-10-24 23:59 | disposition home or self-care (01) ==
LOC: RAD 14:32
PROVIDERS: PCP Family Medicine; Visit Provider Family Medicine
DX: Z12.31 Encounter for screening mammogram for malignant neoplasm of breast (principal); N60.19 Diffuse cystic mastopathy of unspecified breast
CPT/HCPCS: 77063; 77067

== ENCOUNTER 2023-12-14 09:41 | Outpatient (CLI) | payer MEDICARE, OTHER, SELFPAY ==
[2023-12-14 09:49] LABS: Microscopic, Urine URINE MICROSCOPIC (MICROSCOPIC)
[2023-12-14 10:22] LABS: Appearance,Urine CLEAR (Clear); Bilirubin,Urine Negative (Negative); Blood, Urine TRACE-I (Negative); Color,Urine YELLOW (Yellow); Glucose,Urine (UA) Negative (Negative); Hematocrit 36.6 % (37.0-47.0); Hemoglobin 12.2 g/dL (12.2-16.2); Ketones,Urine Negative (Negative); Leukocyte Esterase,Urine 1+ (Negative); Mean Corpuscular HGB Conc 33.4 g/dL (31.8-35.4); Mean Corpuscular Hemoglobin 30.1 pg (27.0-31.2); Mean Corpuscular Volume 90.2 fl (81-99); Nitrate,Urine POSITIVE (Negative); PH,Urine 5.5 (5.0-8.5); Platelet Count 242 K/mm3 (142-424); Protein,Urine Negative (Negative); Red Blood Count 4.06 M/mm3 (4.20-5.40); Red Cell Distribution Width 14.1 % (11.5-17.5); Specific Gravity, Urine 1.025 (1.005-1.030); Urobilinogen,Urine 0.2 EU/dl (0.2); White Blood Count 7.5 K/mm3 (4.8-10.8)
[2023-12-14 10:30] LABS: Creatinine,Urine Random 189 mg/dL (Not Estab.); Total Protein,Urine Random < 5.0 mg/dL (0.0-12.0)
[2023-12-14 10:46] LABS: Albumin Level 3.9 g/dl (3.5-5.0); Anion Gap 12.1 mEq/L (5-15); Blood Urea Nitrogen 23 mg/dl (7-17); Calcium 9.3 mg/dl (8.4-10.2); Carbon Dioxide 26 mmol/L (22.0-30.0); Chloride 108 mmol/L (98-107); Estimated Glomerular Filt Rate 44 ml/min (>60); GFR (African American) 54 ML/MIN (>60); Glucose 79 mg/dl (74-100); Phosphorous 3.5 mg/dl (2.5-4.5); Potassium 4.1 mmoL/L (3.5-5.1); Sodium 142 mmol/L (136-145)
[2023-12-14 10:49] LABS: Bacteria,Urine Trace /lpf; Squamous Epithelial Cell,Urine Occasional #/hpf (0-5)
[2023-12-14 10:58] LABS: Intact Parathyroid Hormone 78.6 pg/mL (7.5-53.5)
[2023-12-14 11:02] LABS: 25-OH Vitamin D, Total 45.5 ng/mL (30-100)
== END 2023-12-14 23:59 | disposition home or self-care (01) ==
LOC: LAB 09:42
PROVIDERS: PCP Family Medicine; Visit Provider Internal Medicine Nephrology
DX: N18.31 Chronic kidney disease, stage 3a (principal); A49.8 Other bacterial infections of unspecified site
CPT/HCPCS: 36415; 80069; 81001; 82306; 82570; 83970; 84156; 85014; 85018; 85048; 85049; 87086; 87088; 87186

== ENCOUNTER 2024-01-02 09:24 | Outpatient (CLI) | payer MEDICARE, OTHER, SELFPAY ==
--- NOTE | 2024-01-02 09:59 | XR_ITS ---
FINAL REPORT TECHNIQUE: Bone densitometry calculations of the lumbar spine and left hip were obtained. CLINICAL HISTORY: OSTEOPENIA left hip replacement since last mammogram COMPARISON: 01/14/2022 FINDINGS: Using L1-4, the bone mineral density of the spine is 0.973 g/cm2, corresponding to T-score of -0.7 and a Z score of 1.5. This is within the range of normal. Using the right hip, the bone mineral density of the femoral neck is 0.712 g/cm2, corresponding to a T-score of -1.9 and a Z-score of -0.3. This is within the range of osteopenia. Using the left forearm, the bone mineral density of the left forearm is 0.618 g/cm?, corresponding to a T-score of -1.3 and a Z-score of 1.0. This is within the range of osteopenia. NOTE: T-score: Standard deviation compared with peak bone mass of young adult mean. *Following the recommendations of the International Society of Bone densitometry, classification of hip BMD is based on the lower of two T-scores; total hip or femoral neck. IMPRESSION: 1. Bone mineral density of the lumbar spine within the range of normal. 2. Bone mineral density of the right femoral neck and the left forearm within the range of osteopenia. Reviewed, Interpreted and Dictated by Jade Scruggs MD Transcribed by Josie Cunningham Authenticated and [facility]
--- NOTE | 2024-01-02 10:00 | HMH.ITSTN ---
PATIENT CHECKED IN AT 9:24 BUT ORDER NOT PUT IN UNTILL 10:00, TECH DID NOT KNOW PATIENT WAS HERE, HAD A MAMMOGRAM PATIENT TO DO AT THIS POINT . EXPLAINED TO PATIENT AND TOLD I WOULD GET TO HER SOON I COULD
== END 2024-01-02 23:59 | disposition home or self-care (01) ==
LOC: RAD 09:24
PROVIDERS: PCP Family Medicine; Visit Provider Family Medicine
DX: M85.89 Other specified disorders of bone density and structure, multiple sites (principal)
CPT/HCPCS: 77080

== ENCOUNTER 2024-10-01 09:42 | Outpatient (CLI) | payer MEDICARE, OTHER, SELFPAY ==
[2024-10-01 09:57] LABS: Microscopic, Urine URINE MICROSCOPIC (MICROSCOPIC)
[2024-10-01 10:12] LABS: Hematocrit 36.5 % (37.0-47.0); Hemoglobin 12.3 g/dL (12.2-16.2); Mean Corpuscular HGB Conc 33.7 g/dL (31.8-35.4); Mean Corpuscular Hemoglobin 30.3 pg (27.0-31.2); Mean Corpuscular Volume 89.9 fl (81-99); Nucleated Red Blood Cells # 0 10^3/uL; Nucleated Red Blood Cells % 0 %; Platelet Count 258 K/mm3 (142-424); Red Blood Count 4.06 M/mm3 (4.20-5.40); Red Cell Distribution Width 13.1 % (11.5-17.5); Red Cell Distribution Width-SD 42.5 fL
[2024-10-01 10:40] LABS: Appearance,Urine CLEAR (Clear); Bilirubin,Urine Negative (Negative); Blood, Urine Negative (Negative); Color,Urine YELLOW (Yellow); Glucose,Urine (UA) Negative (Negative); Ketones,Urine Negative (Negative); Leukocyte Esterase,Urine TRACE (Negative); Nitrate,Urine Negative (Negative); Protein,Urine Negative (Negative); Specific Gravity, Urine 1.015 (1.005-1.030); Urobilinogen,Urine 0.2 EU/dl (0.2)
[2024-10-01 10:51] LABS: Bacteria,Urine Trace /lpf; WBC,Urine Occasional #/hpf (0-3)
[2024-10-01 10:52] LABS: Creatinine,Urine Random 121 mg/dL (Not Estab.)
== END 2024-10-01 23:59 | disposition home or self-care (01) ==
LOC: LAB 09:45
PROVIDERS: PCP Family Medicine; Visit Provider Internal Medicine Nephrology
DX: N18.31 Chronic kidney disease, stage 3a (principal)
CPT/HCPCS: 36415; 81001; 82570; 84156; 85027

== ENCOUNTER 2024-10-03 15:00 | Outpatient (CLI) | payer MEDICARE, OTHER, SELFPAY ==
[2024-10-03 16:57] LABS: Albumin Level 4.1 g/dl (3.5-5.0); Chloride 108 mmol/L (98-107); Sodium 143 mmol/L (136-145)
[2024-10-03 17:00] LABS: Blood Urea Nitrogen 21 mg/dl (7-17); Carbon Dioxide 25 mmol/L (22.0-30.0); Estimated Glomerular Filt Rate 40 ml/min (>60); GFR (African American) 49 ML/MIN (>60); Phosphorous 3.3 mg/dl (2.5-4.5)
[2024-10-03 17:01] LABS: Calcium 9.1 mg/dl (8.4-10.2); Glucose 106 mg/dl (74-100)
== END 2024-10-03 23:59 | disposition home or self-care (01) ==
LOC: LAB 15:03
PROVIDERS: PCP Family Medicine; Visit Provider Internal Medicine Nephrology
DX: N18.31 Chronic kidney disease, stage 3a (principal)
CPT/HCPCS: 36415; 80069

== ENCOUNTER 2025-05-17 14:30 | Outpatient (CLI) | payer MEDICARE, OTHER, SELFPAY ==
--- OUTSIDE RECORDS SUMMARY | 2024-02-17 05:45 | XMS_ITS ---
Author Organization [facility] Address [address] [place] [id number] Care Team Providers Care Brake Mechanic Name Role Phone Darryl Danielson Primary Care Provider Allergies No Known Allergies Results Component Value Reference Range Notes P-Antinuclear Antibodies (AN A) Screen Reviewed date:02/29/2024 01:47:37 PM Interpretation:Normal Performing Lab: Notes/Report: CLIA: [id number] Cody Vaz MD, Java Systems Analyst [address] [place] [address] , [place] [address] Test performed by [employer] Antinuclear Antibodies (KRISH) Screen Negative Negative Test performed by [employer] Bead Immunoassay methodology. P-Sed Rate (ESR) Reviewed date:02/29/2024 01:47:37 PM Interpretation:Normal Performing Lab: Notes/Report: Test performed by [employer] [address] [place] [address] [place] [address] Cody Vaz MD, Java Systems Analyst CLIA: [id number] Erythrocyte Sedimentation Ra te (ESR), Automated 6 <31 mm/hr P-Rheumatoid Factor Reviewed date:02/29/2024 01:47:37 PM Interpretation:Normal Performing Lab: Notes/Report: Test performed by [employer] [address] [place] [address] Binh Borja, [place] [address] Cody Vaz MD, Java Systems Analyst CLIA: [id number] Rheumatoid Factor <10 <14.1 IU/mL P-Uric Acid Reviewed date:02/29/2024 01:47:37 PM Interpretation:Normal Performing Lab: Notes/Report: Test performed by [employer] [address] [place] [address] , [address], [place] [address] Cody Vaz MD, Java Systems Analyst CLIA: [id number] Uric Acid 6.6 2.4-7.0 mg/dL P-KRISH Reviewed date:02/29/2024 09:24:46 AM Interpretation: Performing Lab: Notes/Report: REASON FOR VISIT 4 month check Medications Medication SIG (Take, Route, Frequency, Duration) Notes Start Date End Date Status DULoxetine HCl 30 MG Take 1 capsule by m outh once daily; Duration: 30 days Active Alendronate Sodium 35 MG 1 tablet 30 min utes before the first food, beverage or medicine of the day with plain water Orally weekly; Duration: 30 day(s) 10/17/2023 Active Pravastatin Sodium 40 MG TAKE 1 TABLET B Y MOUTH ONCE DAILY AT BEDTIME; Duration: 90 Active Eliquis 5 MG Take 1 tablet by twice daily; Duration: 30 Active Triamterene-HCTZ 37.5-25 MG 1 tab(s) ora lly once a day Active Melatonin 5 MG 1 tablet in the even ing Orally Once each night as needed Active Aspirin Adult Low Dose 81 MG 1 tablet Orally Once a day; Duration: 30 day(s) 02/22/2023 Active Tylenol 325 MG 2 tab(s) orally ever y 4 hours Active Multi For Her 50+ - as directed Orally Active Vitamin D-3 25 MCG (1000 UT) 1 capsule Orally Once a day; Duration: 30 day(s) Active Calcium + D 600-200 MG-UNIT 1 tablet Ora lly Twice a day; Duration: 30 day(s) Active Problems Problem Type SNOMED Code ICD Code Onset Dates Problem Status W/U Status Risk Notes Problem Osteoarthritis of knee (607610876) Arthropathy of both knees (M17.0) Active confirmed Vital Signs Blood pressure systolic 126 mm Hg 02/17/20 24 Blood pressure diastolic 72 mm Hg 024 Heart Rate 62 /min 02/17/2024 Height 70 in 02/17/2024 Weight 221.0 lbs 02/17/2024 BMI 31.71 kg/m2 02/17/2024 Encounters Encounter Location Date Provider Diagnosis [facility] [address] [facility] [address] [place] [id number] 02/17/2024 Darryl Danielson Essential (primary) hypertension I10 ; Generalized joint pain M25.50 and Arthropathy of both knees M17.0 Assessments Encounter Date Diagnosis (ICD Code) Assessment Notes Treatment Notes Treatment Clinical Notes Section Notes 02/17/2024 Essential (primary) hypertension (ICD-10 - I10) 02/17/2024 Generalized joint pain (ICD-10 - M25.50) 02/17/2024 Arthropathy of both knees (ICD-10 - M17.0) Plan Of Treatment Next Appt Details Follow Up: 3 Months, Reason: Provider Name:Darryl Smith er, 06/28/2025 10:30:00 AM, [address], [address], [place], [id number], Progress Notes * Hannah MCLAUGHLINeDOB:1950 (74 yo F)Acc No.[id number]:02/17/2024 Progress Notes Patient: Madhav KING Provider: Darryl Danielson M.D. :1950 A ge:73 Y S ex:Female Date:02/17/2024 Address:[address] [place] [id number] Subjective: * Chief Complaints: * 1 . 4 month check. * HPI: C ardiology: The pt is here for a check up on Hypertension and Hyperlipidemia. Pt states she does not check her BP at home. Pt states she is doing good except for continued pain in both hips and both knees which affects activity level. She laments weight gain. Pt is not fasting. Denies : Chest Pain. D enies : Short of Breath. D enies : Dizziness. D enies : Palpitations. * ROS: D ERMATOLOGY: no R richardson. n o H alysia. G ASTROENTEROLOGY: no N ausea. n o V omiting. n o D iarrhea.? U ROLOGY: no D ifficulty urinating. n o B lood in urine. * Medical History: H ad Shingrix x2 2019, COVID Moderna Vaccination, Hypertension, Hyperlipidemia, Esophageal reflux, Anxiety, Fibrocystic Breast Disease, Osteopenia, Insomnia, Chronic kidney disease stage 3b as of 2022. * Surgical History: T onsillectomy 2000, LT Total Hip Replacement 01/2023. * Hospitalization/Major Diagno stic Procedure: L T Hip Fracture 01/2023. * Family History: F ather: unknown. M other: alive 91 yrs. 1 sister(s) . . * Social History: C URRENT TOBACCO USE S moking Status: Patient does NOT smoke. C affeine: yes, frequency:coffee, once weekly and pop and tea, qd. Home smoke detector use: yes. Marital Status: . Alcohol: No. * Medications: T aking Calcium + D 600-200 MG-UNIT Tablet 1 tablet Orally Twice a day , Taking Vitamin D-3 25 MCG (1000 UT) Capsule 1 capsule Orally Once a day , Taking Multi For Her 50+ - Tablet as directed Orally , Taking Melatonin 5 MG Tablet 1 tablet in the evening Orally Once each night as needed , Taking Triamterene-HCTZ 37.5-25 MG Tablet 1 tab(s) orally once a day , Taking Tylenol 325 MG Tablet 2 tab(s) orally every 4 hours , Taking Aspirin Adult Low Dose 81 MG Tablet Delayed Release 1 tablet Orally Once a day , Taking Alendronate Sodium 35 MG Tablet 1 tablet 30 minutes before the first food, beverage or medicine of the day with plain water Orally weekly , Taking DULoxetine HCl 30 MG Capsule Delayed Release Particles Take 1 capsule by mouth once daily , Taking Eliquis 5 MG Tablet Take 1 tablet by mouth twice daily , Taking Pravastatin Sodium 40 MG Tablet TAKE 1 TABLET BY MOUTH ONCE DAILY AT BEDTIME , Discontinued Risedronate Sodium 35 MG Tablet 1 tablet at least 30 minutes before the first food or drink, other than water, of the day Orally once weekly , Medication List reviewed and reconciled with the patient * Allergies: N .K.D.A. Objective: * Vitals: W t:221.0, Temp:98.2, BP:126/72, HR:62, Nurse:YANELIS, Ht: 70, BMI:31.71. * Examination: G eneral Examination: General Appearance: N AD, note weight gain. H EENT:?unremarkable. O ral cavity: n o lesions, mucosa moist and WNL, no erythema. N jeni: ?supple, no lymphadenopathy. C hest: n ormal shape and expansion. H eart: R SR. Lungs: c lear to auscultation. A bdomen: soft and nontender. N eurologic Exam:?Intact, gait is good without cne. S kin: n ormal, no rash. P eripheral pulses: n ormal . E xtremities: M inimal leg edema, osteoarthritic changes of the knees, right moreso than left. Assessment: * Assessment: 1. E ssential (primary) hypertension - I10 (Primary) 2 . G eneralized joint pain - M25.50 3 . A rthropathy of both knees - M17.0 Plan: * Treatment: Value Reference Range E rythrocyte Sedimentation Rate (ESR), Automated 6 <31 - mm/hr * Mary Kate Zuniga 02/29/2024 1:4 7:24 PM >Patient informed of normal results. ?LAB: P-Rheumatoid Factor (Collection Date & Time - 02/17/2024 10:44 AM)? Normal* Value Reference Range R heumatoid Factor <10 <14.1 - IU/mL * Mary Kate Zuniga 02/29/2024 1:4 7:24 PM >Patient informed of normal results. ?LAB: P-Uric Acid (Collection Date & Time - 02/17/2024 10:44 AM)?Normal* Value Reference Range U yo Acid 6.6 2.4-7.0 - mg/dL * Mary Kate Zuniga 02/29/2024 1:4 7:24 PM >Patient informed of normal results. ?LAB: P-KRISH (Collection Date & Time - 02/29/2024)* see duplicate order * Labs: * L ab: P-Antinuclear Antibodies (KRISH) Screen (Collection Date & Time - 02/17/2024 10:44 AM) N ormal Value Reference Range A ntinuclear Antibodies (KRISH) Screen Negative Negat delphine - * [facility], IT support 02/21/2024 05:35:04 : This order was created by the Interface. Mary Kate Zuniga 02/29/2024 1:47:24 PM >Patient informed of normal results. * Procedure Codes: G 2211 Complex e/m visit add on, 3074F SYST BP LT 130 MM HG, 3078F DIAST BP < 80 MM HG * Follow Up: 3 Months * Images: Billing Information: * Visit Code: 38856 Office Visit, Est Pt., Level 4. * Procedure Codes: G2211 Complex e/m visit add on. 3074F SYST BP LT 130 MM HG. 3078F DIAST BP < 80 MM HG. * Electronic signature of Darryl Danielson MD on 05/17/2025 at 02:33 PM EST Sign off status: Pending * Provider: Darryl Danielson M.D. Date: 0 02/17/2024 Generated for Camposi la/Mckinley/Barbarasmitting on: 1 07/17/2024 02:33 PM EST History and Physical Notes * HPI (History of Present Illness) Category Sub-Category Detail Notes Category Not es Cardiology Short of Breath Chest Pain Palpitations Dizziness Examination Category Sub-Category Detail Notes Category Not es General Examination HEENT: unremarkable Heart: RSR Lungs: clear to auscultatio n Abdomen: soft and nontender Extremities: Minimal leg edema, o steoarthritic changes of the knees, right moreso than left General Appearance: NAD, note weight gai n Skin: normal, no rash Neurologic Exam: Intact, gait is good without cne Neck: supple, no lymphaden opathy Oral cavity: no lesions, mucosa m oist and WNL, no erythema Peripheral pulses: normal Chest: normal shape and exp ansion
--- OUTSIDE RECORDS SUMMARY | 2024-04-02 08:45 | XMS_ITS ---
Author Organization [facility] Address [address] [place] [phone] Care Team Providers Care Log Handler Name Role Phone Darryl Danielson Primary Care Provider Ashley Bar Unavailable [phone] Allergies No Known Allergies REASON FOR VISIT [...] W/U Status Risk Notes Problem Otitis externa (2064116) Otitis externa (H60.90) Active confirmed Vital Signs Blood pressure systolic 126 mm Hg 04/02/20 24 Blood pressure diastolic 78 mm Hg 024 Heart Rate 60 /min 04/02/2024 Height 70 in 04/02/2024 Weight 218.6 lbs 04/02/2024 BMI 31.36 kg/m2 04/02/2024 Encounters Encounter Location Date Provider Diagnosis [facility] [address] [facility] [address] [place], [place] [phone] 04/02/2024 Ashlye Bar Otitis externa H60.9 0 Assessments Encounter [...] 06/28/2025 10:30:00 AM, [address] [facility], [address], [place], [place], [id number], Progress Notes * Narcisa MCLAUGHLINOB:1950 (74 yo F)Acc No.[id number]:04/02/2024 Progress Notes Patient: Madhav KING Provider: DINESH Lowry :1950 A ge:73 Y S ex:Female Date:04/02/2024 Address:[address] [place], [place] [phone] Pcp:Darryl Danielson Subjective: * Chief Complaints: * [...] * Images: Billing Information: * Visit Code: 64130 Office Visit, Est Pt., Level 3. * Procedure Codes: 30400 PULSE OX. * Electronic signature of Brittni Bar APRN on 05/17/2025 at 02:33 PM EST Sign off status: Pending * Provider: DINESH Lowry Date: Generated for Panchito tovar/Mckinley/Laraitting on: 07/17/2024 02:33 PM EST History and Physical [...]
--- OUTSIDE RECORDS SUMMARY | 2024-04-09 06:00 | XMS_ITS ---
Author Organization [facility] Address [address] [place] [id number] Care Team Providers Care Automotive Generator Repairer Name Role Phone Darryl Danielson Primary Care Provider Ashley Bar Unavailable [phone] Allergies No Known Allergies REASON FOR VISIT Ear Stopped Up Medications Medication SIG (Take, Route, Frequency, Duration) Notes Start Date End Date Status Triamterene-HCTZ 37.5-25 MG 1 tab(s) ora lly once a day Active DULoxetine HCl 30 MG Take 1 capsule by m outh once daily; Duration: 30 days Active Ciprofloxacin HCl 0.2 % 0.25 ml into aff ected ear Otic every 12 hrs; Duration: 7 day(s) 04/02/2024 Active Alendronate Sodium 35 MG TAKE 1 TABLET B Y MOUTH ONCE A WEEK 30 MINUTES BEFORE THE FIRST FOOD, BEVERAGE, OR MEDICINE OF THE DAY WITH PLAIN WATER; Duration: 28 Active Pravastatin Sodium 40 MG TAKE 1 TABLET B Y MOUTH ONCE DAILY AT BEDTIME; Duration: 90 Active Melatonin 5 MG 1 tablet in the even ing Orally Once each night as needed Active Tylenol 325 MG 2 tab(s) orally ever y 4 hours Active Medrol 4 MG as directed orally daily; Duration: 6 days 04/09/2024 Active Aspirin Adult Low Dose 81 MG 1 tablet Or ally Once a day; Duration: 30 day(s) 02/22/2023 Active Eliquis 5 MG Take 1 tablet by donna th twice daily; Duration: 30 Active Multi For Her 50+ - as directed Orally Active Calcium + D 600-200 MG-UNIT 1 tablet Ora lly Twice a day; Duration: 30 day(s) Active Vitamin D-3 25 MCG (1000 UT) 1 capsule O rally Once a day; Duration: 30 day(s) Active Vital Signs Blood pressure systolic 120 mm Hg 04/09/20 24 Blood pressure diastolic 70 mm Hg 024 Heart Rate 57 /min 04/09/2024 Height 70 in 04/09/2024 Weight 219.6 lbs 04/09/2024 BMI 31.51 kg/m2 04/09/2024 Encounters Encounter Location Date Provider Diagnosis [facility] [address] [facility] [address] [facility] [address] [place] [id number] 04/09/2024 Ashley Bar Otitis media, left H66.92 Assessments Encounter Date Diagnosis (ICD Code) Assessment Notes Treatment Notes Treatment Clinical Notes Section Notes 04/09/2024 Otitis media, left (ICD-10 - H66.92) has completed the gtts; will try sreiods which she says has helped in the past Plan Of Treatment Medication Medication Name Sig Start Date Stop Date Notes Medrol 4 MG as directed orally daily; Duration: 6 days Treatment Notes Assessment Notes Otitis media, left has completed the gt ts; will try sreiods which she says has helped in the past Next Appt Details Follow Up: prn, Reason: Provider Name:Darryl Smith , 06/28/2025 10:30:00 AM, [address] [facility] [address] [facility], [address], [place], [id number], Progress Notes * Narcisa MCLAUGHLINOB:1950 (74 yo F)Acc No.[id number]:04/09/2024 Progress Notes Patient: Madhav KING Provider: DINESH Lowry :1950 A ge:73 Y S ex:Female Date:04/09/2024 Address:[address] [place], [place] [address] SEVILLA [id number] Pcp:Darryl Danielson Subjective: * Chief Complaints: * 1 . Ear Stopped Up. * HPI: E NT/respiratory: 73 year old female presents with c/o ear pain. c/o rhinorrhea. c/o post nasal drainage. c/o ear stopped up P t is here today with c/o right, ear being stopped up. Pt sts she was here last week for the same reason, but sts the ear drops have not helped her at all. Pt sts she does have a sharp pain occasionally in her right ear. Denies : Fever. * ROS: D ERMATOLOGY: no R richardson. [...] capsule by mouth once daily , Taking Ciprofloxacin HCl 0.2 % Solution 0.25 ml into affected ear Otic every 12 hrs , Medication List reviewed and reconciled with the patient * Allergies: N .K.D.A. Objective: * Vitals: W t:219.6, Temp:98.7, BP:120/70, HR:57, O2 Sat:98% on RA, Nurse:TANVIR, Ht: 70, BMI:31.51. * Examination: E NT/Respiratory: General Appearance: well nourished and hydrated NAD alert. E yes: PERRLA, sclera clear. E ars: auditory canals normal bilaterally; TM on the left is normal and the right with fluid. O ral cavity : no erythema or exudate seen on pharynx. N jeni : supple no cervical lymphadenopathy. H eart : RRR. L ungs:? clear to auscultation bilaterally. Assessment: * Assessment: 1. O titis media, left - H66.92 (Primary) S pecify :effusion Plan: * Treatment: * Procedure Codes: 9 4760 PULSE OX * Follow Up: p rn * Images: Billing Information: * Visit Code: 41451 Office Visit, Est Pt., Level 3. * Procedure Codes: 24307 PULSE OX. * Electronic signature of Brittni Bar APRN on 05/17/2025 at 02:32 PM EST Sign off status: Pending * Provider: DINESH Lowry Date: Generated for Panchito tovar/Mckinley/Laraitting on: 07/17/2024 02:32 PM EST History and Physical Notes * HPI (History of Present Illness) Category Sub-Category Detail Notes Category Not es ENT/respiratory ear pain Fever post nasal drainage rhinorrhea ear stopped up Pt is here today wit h c/o right, ear being stopped up. Pt sts she was here last week for the same reason, but sts the ear drops have not helped her at all. Pt sts she does have a sharp pain occasionally in her right ear Examination Category Sub-Category Detail Notes Category Not es ENT/Respiratory Oral cavity : no erythema or exudate s een on pharynx Ears: auditory canals norm al bilaterally; TM on the left is normal and the right with fluid Neck : supple no cervical l ymphadenopathy Heart : RRR Lungs: clear to auscultatio n bilaterally General Appearance: well nourished and h ydrated NAD alert Eyes: PERRLA, sclera clear
--- OUTSIDE RECORDS SUMMARY | 2024-05-18 04:45 | XMS_ITS ---
Author [facility] Address [address] [place] [id number] Care Team Providers Care Shake Maker Name Role Phone Darryl Danielson Primary Care Provider Allergies No Known Allergies Results Component Value Reference Range Notes P-Comprehensive Metabolic Pa harvey (CMP) Reviewed date:05/28/2024 01:02:36 PM Interpretation:cl 109, Cr 1.4, gfr 40 Performing Lab: Notes/Report: CLIA: [id number] Cody Vaz MD, Dumper Bul[employer] System [facility] , [address], [place] [address] Test performed by [facility], [facility] Sodium 144 135-145 mmol/L Potassium 4.1 3.5-5.3 [...] Interpretation:Normal Performing Lab: Notes/Report: Test performed by [facility], [address] , [address], [place] [address] Cody Vaz MD, Dumper [employer] System CLIA: [id number] Cholesterol 144 <200 mg/dL Triglycerides 120 <150 [...] W/U Status Risk Notes Problem Pure hypercholesterolemia (690378350) Pure hypercholesterolemia with target low density lipoprotein (LDL) cholesterol less than 130 mg/dL (E78.00) Active confirmed Vital Signs Blood pressure systolic 150 mm Hg 05/18/20 24 Blood pressure diastolic 80 mm Hg 024 Heart Rate 56 /min 05/18/2024 Height 70 in 05/18/2024 Weight 220.2 lbs 05/18/2024 BMI 31.59 kg/m2 05/18/2024 Encounters Encounter Location Date Provider Diagnosis [facility] [address] [facility] [address] [place], [place] [id number] 05/18/2024 Darryl Danielson Essential hypertensi on I10 ; Pure hypercholesterolemia E78.0 ; 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 ; Current use of prison anticoagulation Z79.01 ; Encounter for immunization Z23 [...] (ICD-10 - Z96.649) 05/18/2024 Current use of prison anticoagulation (ICD-10 - Z79.01) 05/18/2024 Encounter for immunization (ICD-10 - Z23) 05/18/2024 Renal insufficiency (ICD-10 - N28.9) 05/18/2024 Pure hypercholesterolemia with target low density lipoprotein (LDL) cholesterol less than 130 mg/dL (ICD-10 - E78.00) Plan Of Treatment Next Appt Details Follow Up: 4 Months, Reason: Provider Name:Darryl Smith , 06/28/2025 10:30:00 AM, [address] [facility] [address] [facility], [address] , [place], [place], [id number], Progress Notes * SERGIOHannah MONTOYAJacOB:1950 (74 yo F)Acc No.[id number]:05/18/2024 Progress Notes Patient: Madhav KING Provider: Darryl Danielson M.D. :1950 A ge:73 Y S ex:Female Date:05/18/2024 Address:[address] [place] [id number] Subjective: * Chief Complaints: * 1 . [...] Z96.649 4 . C urrent use of prison anticoagulation - Z79.01 5 . E ncounter [...] * Images: Billing Information: * Visit Code: 29504 Office Visit, Est Pt., Level 4. * Procedure Codes: 93248 PULSE OX. G2211 Complex e/m visit add on. * Electronic signature of Darryl Danielson MD on 05/17/2025 at 02:33 PM EST Sign off status: Pending * Provider: Darryl Danielson M.D. Date: 07/18/2023 Generated for Panchito tovar/Mckinley/Barbarasmitting on: 07/17/2024 02:33 PM EST History and [...]
--- OUTSIDE RECORDS SUMMARY | 2024-06-29 06:45 | XMS_ITS ---
Author Organization [facility] Address [address] [facility] [address] [place] [phone] Care Team Providers Care Commercial Escrow Officer Name Role Phone Darryl Danielson Primary Care Provider REASON FOR VISIT checkup Encounters Encounter Location Date Provider Diagnosis [facility] [address] [place] [phone] 06/29/2024 Darryl Danielson Plan Of Treatment Next Appt Details Provider Name:Darryl Smith er, 06/28/2025 10:30:00 AM, [address], [address], [place], [place], [phone], Progress Notes * Hannah MCLAUGHLINJacOB:1950 (74 yo F)Acc No.[id number]:06/29/2024 Progress Notes Patient: Madhav KING Provider: Darryl Danielson M.D. :1950 A ge:74 Y S ex:Female Date:06/29/2024 Address:[address] [place], [place] [address] [id number] Subjective: * Chief Complaints: * 1 . Checkup. * Medical History: Objective: * Vitals: Assessment: Plan: * Treatment: * Images: Billing Information: * Visit Code: * Procedure Codes: * Electronic signature of Darryl Danielson MD on 05/17/2025 at 02:32 PM EST Sign off status: Pending * Provider: Darryl Danielson M.D. Date: 0 06/29/2024 Generated for Panchito tovar/Mckinley/Yoly on: 1 07/17/2024 02:32 PM EST
--- OUTSIDE RECORDS SUMMARY | 2024-08-03 05:15 | XMS_ITS ---
Author Organization [facility] Address [address] [place] [phone] Care Team Providers Care Retail Advisor Name Role Phone Darryl Danielson Primary Care Provider Allergies No Known Allergies Results Component Value Reference Range Notes P-Basic Metabolic Panel (BMP ) Reviewed date:08/06/2024 05:33:34 PM Interpretation:Cr 1.18, gfr 49 Performing Lab: Notes/Report: CLIA: [id number] Cody Vaz MD, Claims Adjuster Crop [address] [place] [address] , [address], [place] [address] Test performed by [facility], [facility] Sodium 143 135-145 mmol/L Potassium 4.2 3.5-5.3 [...] W/U Status Risk Notes Problem Essential hypertension (03374708) Essential hypertension (I10) Active confirmed Problem Pure hypercholesterolemia (108110111) Pure hypercholesterolemia (E78.00) Active confirmed Vital Signs Blood pressure systolic 126 mm Hg 08/03/19 25 Blood pressure diastolic 74 mm Hg 025 Heart Rate 54 /min 08/03/2024 Height 70 in 08/03/2024 Weight 223.2 lbs 08/03/2024 BMI 32.02 kg/m2 08/03/2024 Encounters Encounter Location Date Provider Diagnosis [facility] [address] [phone] 08/03/2024 Darryl Danielson Essential hypertensi on I10 ; Pure hypercholesterolemia E78.0 ; 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 ; Current use of laborer marine terminal anticoagulation Z79.01 ; Encounter for immunization Z23 [...] (ICD-10 - Z96.649) 08/03/2024 Current use of chcf anticoagulation (ICD-10 - Z79.01) 08/03/2024 Encounter for immunization (ICD-10 - Z23) 08/03/2024 Renal insufficiency (ICD-10 - N28.9) 08/03/2024 Pure hypercholesterolemia with target low density lipoprotein (LDL) cholesterol less than 130 mg/dL (ICD-10 - E78.00) Plan Of Treatment Next Appt Details Follow Up: 3 Months, Reason: Provider Name:Darryl Smith er, 06/28/2025 10:30:00 AM, [address], [address], [place], [place], [phone], Progress Notes * Hannah MCLAUGHLINeDOB:1950 (74 yo F)Acc No.[id number]:08/03/2024 Progress Notes Patient: Madhav KING Provider: Darryl Danielson M.D. :1950 A ge:74 Y S ex:Female Date:08/03/2024 Address:[address] [place] [address] [facility], [id number] Subjective: * Chief Complaints: * 1 . [...] Z96.649 4 . C urrent use of laborer marine terminal anticoagulation - Z79.01 5 . E ncounter [...] 3078F DIAST BP < 80 MM [place], [address] P[place]SE [place] * Follow Up: 3 Months * Images: Billing Information: * Visit Code: 55583 Office Visit, Est Pt., Level 4. * Procedure Codes: G2211 Complex e/m visit add on. 3074F SYST BP LT 130 MM HG. 3078F DIAST BP < 80 [place]. [address] P[place]SE [place]X. * Electronic signature of Darryl Danielson MD on 05/17/2025 at 02:33 PM EST Sign off status: Pending * Provider: Darryl Danielson M.D. Date: 0 08/03/2024 Generated for Panchito tovar/Mckinley/Yoly on: 1 07/17/2024 02:33 PM EST History [...]
--- OUTSIDE RECORDS SUMMARY | 2024-10-29 04:45 | XMS_ITS ---
Author Organization [facility] Address [address] [place] [phone] Care Team Providers Care Coding Specialist Name Role Phone Darryl Danielson Primary Care Provider [phone] Allergies No Known Allergies Results Component Value Reference Range Notes P-Comprehensive Metabolic Pa harvey (CMP) Reviewed date:01/18/2025 09:11:37 AM Interpretation:Cr 1.3, gfr 44 Performing Lab: Notes/Report: CLIA: [id number] Cody Vaz MD, Engineering Aide [address] [place] [address] , [address], [place] [address] Test performed by [facility], [facility] Sodium 142 135-145 mmol/L Potassium 4.2 3.5-5.3 [...] Interpretation:Normal Performing Lab: Notes/Report: Test performed by [facility] [address] [facility] , [address], [place] [address] Cody Vaz MD, Engineering Aide JEAN: [id number] Cholesterol 138 <200 mg/dL Triglycerides 145 <150 [...] HCl 30 MG Take 1 capsule by [facility] once daily; Duration: 30 Active Aspirin Adult [...] Problem Body mass index 30.00 to 34.99 ([id number] 107) BMI 31.0-31.9,a dult (Z68.31) Active confirmed Vital Signs Blood pressure systolic 130 mm Hg 10/30/19 25 Blood pressure diastolic 76 mm Hg 025 Heart Rate 56 /min 10/29/2024 Height 70 in 10/29/2024 Weight 223.0 lbs 10/29/2024 BMI 31.99 kg/m2 10/29/2024 Encounters Encounter Location Date Provider Diagnosis [facility] [facility] 36 [facility] [address] [place], [place] [phone] 10/29/2024 Darryl Danielson Essential hypertensi on I10 [...] Name:Darryl Smith er, 06/28/2025 10:30:00 AM, [address] [facility] 36 [facility], [address], [place], [place], [phone], Progress Notes * Narcisa MCLAUGHLINOB:1950 (74 yo F)Acc No.[id number]:10/29/2024 Progress Notes Patient: Madhav KING Provider: Darryl Danielson M.D. :1950 A ge:74 Y S ex:Female Date:10/29/2024 Address:[address] [place], [place] [address]S[place] [id number] Subjective: * Chief Complaints: * 1 . [...] .?Pure hypercholesterolemia - E78.00 5 . B [place] 31.0-31.9,adult - Z68.31 ? Plan: * Treatment: [...] * Images: Billing Information: * Visit Code: 44398 Office Visit, Est Pt., Level 4. * Procedure Codes: G2211 Complex e/m visit add on. 3075F SYST BP GE 130 - 139MM HG. 3078F DIAST BP < 80 MM HG. * Electronic signature of Darryl Danielson MD on 05/17/2025 at 02:33 PM EST Sign off status: Pending * Provider: Darryl Danielson M.D. Date: 0 10/29/2024 Generated for Panchito tovar/Mckinley/eTransmlowell on: 07/17/2024 02:33 PM EST History and [...]
--- OUTSIDE RECORDS SUMMARY | 2025-03-21 09:45 | XMS_ITS ---
Author Organization [facility] Address [address] [place] [id number] Care Team Providers Care Service Delivery Supervisor Name Role Phone Darryl Danielson Primary Care Provider [phone] Sabine Watts [phone] REASON FOR VISIT flu shot Medications Medication SIG (Take, Route, Frequency, Duration) Notes Start Date End Date Status Lisinopril 10 MG Take 1 tablet by donna once daily; Duration: 90 Active DULoxetine HCl 30 MG Take 1 capsule by m out once daily; Duration: 90 Active Pravastatin Sodium 40 MG 1 tablet Orally Once a day; Duration: 90 days Active Eliquis 5 MG Take 1 tablet by donna twice daily; Duration: 90 Active Alendronate Sodium 35 MG TAKE 1 TABLET B Y MOUTH ONCE A WEEK 30 MINUTES BEFORE FIRST FOOD, BEVERAGE, OR MEDICINE OF THE DAY WITH PLAIN WATER; Duration: 56 Active Melatonin 5 MG 1 tablet in the even ing Orally Once each night as needed Active Tylenol 325 MG 2 tab(s) orally ever y 4 hours Active Aspirin Adult Low Dose 81 MG 1 tablet Orally Once a day; Duration: 30 day(s) 02/22/2023 Active Triamterene-HCTZ 37.5-25 MG 1/2 tab(s) o rally once a day; Duration: 90 days Active Multi For Her 50+ - as directed Orally Active Calcium + D 600-200 MG-UNIT 1 tablet Ora lly Twice a day; Duration: 30 day(s) Active Vitamin D-3 25 MCG (1000 UT) 1 capsule Orally Once a day; Duration: 30 day(s) Active Immunizations Vaccine Route Administration Date Status Comme nts Fluzone High Dose (65yr and older) IM Intramuscular 03/21/2025 Administered Encounters Encounter Location Date Provider Diagnosis [facility] [address] [place] [id number] 03/21/2025 Sabine Watts Encounter for immunization Z23 Assessments Encounter Date Diagnosis (ICD Code) Assessment Notes Treatment Notes Treatment Clinical Notes Section Notes 03/21/2025 Encounter for immunization (ICD-10 - Z23) Plan Of Treatment Next Appt Details Provider Name:Darryl Smith er, 06/28/2025 10:30:00 AM, [address], [address], [place], [id number], Progress Notes * ETELVINAHannah MONTOYAJacOB:1950 (74 yo F)Acc No.[id number]:03/21/2025 Patient: Madhav KING Provider: Sabine Watts M.D. :1950 A ge:74 Y S ex:Female Date:03/21/2025 Address:[address] [place] [phone] Pcp:Darryl Danielson Subjective: * Chief Complaints: * 1 . Flu shot. * Medical History: * Medications: T aking Calcium + D [...] day , Taking Lisinopril 10 MG Tablet Take 1 tablet by mouth once daily , Taking DULoxetine HCl 30 MG Capsule Delayed Release Particles Take 1 capsule by mouth once daily , Taking Pravastatin Sodium 40 MG Tablet 1 tablet Orally Once a day , Taking Eliquis 5 MG Tablet Take 1 tablet by mouth twice daily , Taking Alendronate Sodium 35 MG Tablet TAKE 1 TABLET BY MOUTH ONCE A WEEK 30 MINUTES BEFORE FIRST FOOD, BEVERAGE, OR MEDICINE OF THE DAY WITH PLAIN WATER , Medication List reviewed and reconciled with the patient Objective: * Vitals: Assessment: * Assessment: 1. E ncounter for immunization - Z23 (Primary) Plan: * Treatment: * Immunizations: Fluzone High Dose (65yr and older) : 0.5 mL (Route: Intramuscular) given by TANVIR Dumont on Right Deltoid (Encounter for immunization) * Images: Billing Information: * Visit Code: * Procedure Codes: * Electronic signature of Sabine Watts MD on 05/17/2025 at 02:33 PM EST Sign off status: Pending * Provider: Sabine Watts M.D. Date: Generated for Panchito tovar/Mckinley/Yoly on: 07/17/2024 02:33 PM EST
--- OUTSIDE RECORDS SUMMARY | 2025-04-26 04:30 | XMS_ITS ---
Author Organization [facility] Address [address] [place] [id number] Care Team Providers Care Manager Contact Name Role Phone Darryl Danielson Primary Care Provider [phone] Allergies No Known Allergies Results Component Value Reference Range Notes P-Comprehensive Metabolic Pa harvey (CMP) Reviewed date:04/30/2025 08:44:27 AM Interpretation:BUN 24, Creat 1.38, eGFR 40 Performing Lab: Notes/Report: CLIA: [id number] Cody Vaz MD, Director Social [facility] , [address], [place] [address] Test performed by [employer], [facility] Sodium 141 135-145 mmol/L Potassium 3.8 3.5-5.3 [...] HCl 30 MG Take 1 capsule by [facility] once daily; Duration: 90 Active Lisinopril 10 [...] (PCV20) IM Intramuscular 04/26/2025 Administered Vital Signs Blood pressure systolic 110 mm Hg 04/26/20 25 Blood pressure diastolic 70 mm Hg 025 Heart Rate 52 /min 04/26/2025 Height 70 in 04/26/2025 Weight 225.0 lbs 04/26/2025 BMI 32.28 kg/m2 04/26/2025 Encounters Encounter Location Date Provider Diagnosis [facility] [address] [place] [id number] 04/26/2025 Darryl Danielson Renal insufficiency N28.9 ; 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 ; Essential (primary) hypertension I10 ; Localized edema R60.0 ; Current use of intermediate designer anticoagulation Z79.01 ; Encounter for immunization Z23 and Fibrocystic breast disease (FCBD), unspecified laterality N60.19 Assessments Encounter Date Diagnosis (ICD Code) Assessment Notes Treatment Notes Treatment Clinical Notes Section Notes 04/26/2025 Renal insufficiency (ICD-10 - N28.9) 04/26/2025 S/P hip hemiarthroplasty (ICD-10 - Z96.649) 04/26/2025 Essential (primary) hypertension (ICD-10 - I10) 04/26/2025 Localized edema (ICD-10 - R60.0) 04/26/2025 Current use of custodial anticoagulation (ICD-10 - Z79.01) 04/26/2025 Encounter for immunization (ICD-10 - Z23) 04/26/2025 Fibrocystic breast disease (FCBD), unspecified laterality (ICD-10 - N60.19) Plan Of Treatment Pending Test Test Name Order Date Mammogram 04/26/2025 Next Appt Details Follow Up: 2 Months, Reason: Provider Name:Darryl Smith er, 06/28/2025 10:30:00 AM, [address] [facility] [address] [facility], [address], [place], [place], [id number], Progress Notes * Hannah MCLAUGHLINeDOB:1950 (74 yo F)Acc No.[id number]:04/26/2025 Progress Notes Patient: Madhav KING Provider: Darryl Danielson M.D. :1950 A ge:74 Y S ex:Female Date:04/26/2025 Address:[address] [place] [phone] Subjective: * Chief Complaints: * 1 . [...] R60.0 5 . C urrent use of custodial anticoagulation - Z79.01 & #160; 6 . [...] Creatinine 40 L >59 - mL/min/1.73m2 * Mariya Hinojosa 04/30/2025 08 :44:20 AM EST > See phone encounter 2.?Fibrocystic breast disease (FCBD), unspecified laterality?Imaging: Mammogram* Sayda Flores 05/10/2025 11: 31:57 AM EST > faxed to [facility] Scheduling * Immunizations: Prevnar (PCV20) : 0.5 mL (Route: Intramuscular) given by Mary Kate Zuniga on Right Deltoid * Procedure Codes: 3 6415 VENIPUNCT, ROUTINE* * Follow Up: 2 Months * Images: Billing Information: * Visit Code: 39490 Office Visit, Est Pt., Level 4. * Procedure Codes: 28597 VENIPUNCT, ROUTINE*. * Electronic signature of Darryl Danielson MD on 05/17/2025 at 02:34 PM EST Sign off status: Pending * Provider: Darryl Danielsno M.D. Date: 06/26/2024 Generated for Printi ng/Faеленаg/eTransmitting on: 07/17/2024 02:34 PM EST History and Physical Notes [...]
--- OUTSIDE RECORDS SUMMARY | 2025-05-17 14:33 | XMS_ITS | Clinical Summary ---
Author Organization [facility] Address [address] [place] [address] Care Team Providers Care Curing Press Maintainer Name Role Phone Robby Danielson MD Primary Care Provider [phone] Allergies No known active allergies Medications Melatonin 5 MG tablet tablet Take by mouth. Active Multiple Vitamin (multivitamin) tablet Take 1 tablet by mouth 1 (one) time each day. Active Calcium Carb-Cholecalci ferol 600-20 MG-MCG tablet Take by mouth. Active acetaminophen (Tylenol) 325 MG tablet Take 2 tablets (650 mg) by mouth every 6 (six) hours if needed. Active pravastatin (Pravachol) 40 MG tablet Take 1 tablet (40 mg) by mouth every night. Active triamterene-hyd roCHLOROthiazid e (Dyazide) 37.5-25 MG capsule Take 1 capsule by mouth 1 (one) time each day in the morning. Active alendronate (Fosamax) 35 MG tablet TAKE 1 TABLET BY MOUTH ONCE A WEEK 30 MINUTES BEFORE THE FIRST FOOD, BEVERAGE, OR MEDICINE OF THE DAY WITH PLAIN WATER 12/03/2023 Active Eliquis 5 MG tablet 12/18/2023 Active DULoxetine (Cymbalta) [address] capsule Take 1 capsule (30 mg) by mouth 1 (one) time each day. 10/30/2023 Active aspirin 81 MG EC tablet Take 1 tablet (81 mg) by mouth 1 (one) time each day. Active cyanocobalamin 1000 MCG tablet Take 1 tablet (1,000 mcg) by mouth 1 (one) time each day. Active lisinopril 10 MG tablet Take 1 tablet by mouth daily. Active cholecalciferol (Vitamin D3) 25 MCG (1000 UT) tablet Take 1 tablet by mouth daily. Active Active Problems Problem Noted Date Diagnosed Date Anemia due to stage 3a chronic kidney disease Hypertensive chronic kidney disease with stage 1 through stage 4 chronic kidney disease, or unspecified chronic kidney disease 10/09/2024 Chronic kidney disease-mineral and bone disorder (CKD-MBD) 10/09/2024 Other hyperlipidemia 10/09/2024 Immunizations Immunization Administration Dates Next Due Influenza, high-dose, quadrivalent 03/24,03/27/2021,03/17/2020,03/17,04/06/2019,04/06/2019,03/22/2018 ,03/22/2018 Influenza, injectable, quadrivalent 03/15/2017 Moderna Covid-19 Vaccine 12y +, Yefri Protein, Preservative free 04/13/2023 Pneumococcal Conjugate PCV 13 06/28/2018 Pneumococcal Polysaccharide PPV23 07/18/2019 Zoster, Recombinant 11/29/2018 Family History Medical History Relation Name Comments No Known Problems Father Hip fracture Mother Hyperlipidemia Mother Hypertension Mother Kidney disease Mother Osteoporosis Mother Relation Name Status Comments Father Mother Alive Social History Tobacco Use Types Packs/Day Years Used Date Smoking Tobacco: Never Passive Smoke Exposure: Never Smokeless Tobacco: Never Tobacco Cessation:Counseling Given: Not Answered Alcohol Use Standard Drinks/Week Comments Never 0 (1 standard drink = 0.6 oz pur e alcohol) Comments No Sex and Gender Information Value Date Recorded Sex Assigned at Not on file Legal Sex Female 2:33 PM EDT Gender Identity Not on file Sexual Orientation Not on file Last Filed Vital Signs Vital Sign Reading Time Taken Comments Blood Pressure 136/64 10/05/2024 9:54 AM EDT Pulse 68 10/05/2024 9:54 AM EDT Temperature 36.5 C (97.7 F) 10/05/2024 9:54 AM EDT Respiratory Rate 16 10/05/2024 9:54 AM EDT Oxygen Saturation 98% 10/05/2024 9:54 AM EDT Inhaled Oxygen Concentration - - Weight 100 kg (221 lb) 10/05/2024 9:54 AM EDT Height 177.8 cm (5' 10 ) 10/05/2024 9:54 AM EDT Body Mass Index 31.71 10/05/2024 9:54 AM EDT Plan of Treatment Health Maintenance Due Date Last Done Comments [facility]-Bone Density Scan 1950 [facility]-Depression Screening 1950 [facility]-Hepatitis C Screening 1950 [facility]-Medicare Annual Wellness (AWV) 1950 [facility]-Infant/Child/Adol SDOH Screenings 1950 [facility]- SDOH Screenings 1970 [facility]-Adult SDOH Screenings 1970 CT Colonography 1997 Colonoscopy 1997 FIT-DNA 1997 FIT 1997 FOBT 1997 Sigmoidoscopy 1997 [facility]-Colorectal Cancer Screening 1997 [facility]-Breast Cancer Screening 2002 [facility]-RSV Vaccine: 60+ Years or (1 - Risk 60-74 years 1-dose series) 2012 [facility]-Zoster Vaccines (3 of 3) 01/24/2019 11/29/2018, 09/17/2018 III-QNBPB-35 Vaccine ( season) 2025 05/29/2024, 04/13/2023, 04/01/2022, Additional history exists [facility]-Influenza Vaccine (#1) 02/18/202503/24, 03/27/2021, 03/17/2020, Additional history exists [facility]-DTaP,Tdap,and Td Vaccines (2 - Td or Tdap) 06/25/2025 06/25/2015 [facility]-Pneumococcal Vaccine: 50+ Years Completed 07/18/2019, 06/28/2018 [facility]-Obesity Intervention Completed 025, 12/19/2023, 05/02/2023, Additional history exists HPV Vaccines Aged Out No longer eligi ble based on patient's age to complete this topic [facility]-HIB Vaccines Aged Out No longer e ligible based on patient's age to complete this topic [facility]-Hepatitis A Vaccines Aged Out No longer eligible based on patient's age to complete this topic [facility]-IPV Vaccines Aged Out No longer e ligible based on patient's age to complete this topic [facility]-Rotavirus Vaccines Aged Out No lo nger eligible based on patient's age to complete this [place] [address] [facility] Care Teams Curing Press Maintainer Relationship Specialty Start Date End Date Robby Danielson MD [address] [place] [id number] PCP - General 04/16/22
--- OUTSIDE RECORDS SUMMARY | 2025-05-17 14:35 | XMS_ITS | Patient Health Record ---
Author Organization [facility] Address [address] [facility] [address] [place] [id number] Care Team Providers Care Sash Installer Name Role Phone Darryl Danielson Primary Care Provider Mac Sabine Buck Unavailable [phone] Allergies No Known Allergies Results Component Value Reference Range Notes P-Comprehensive Metabolic Pa harvey (CMP) Reviewed date:05/28/2024 01:02:36 PM Interpretation:cl 109, Cr 1.4, gfr 40 Performing Lab: Notes/Report: Test performed by [email or web address] [address] [place] [address] , [address], [place] [address] Cody Vaz MD, Cdl Bulk Driver CLIA: [id number] Sodium 144 135-145 mmol/L Potassium 4.1 3.5-5.3 [...] Interpretation:Normal Performing Lab: Notes/Report: Test performed by [email or web address], [address], [place] [address] Cody Vaz MD, Cdl Bulk Driver CLIA: [id number] Cholesterol 144 <200 mg/dL Triglycerides 120 <150 [...] Results: 69 Units: mg/dL % Change: -13% P-Basic Metabolic Panel (BMP ) Reviewed date:08/06/2024 05:33:34 PM Interpretation:Cr 1.18, gfr 49 Performing Lab: Notes/Report: Test performed by [facility] [address] [place] [address] , [address], [place] [address] Cody Vaz MD, Cdl Bulk Driver CLIA: [id number] Sodium 143 135-145 mmol/L Potassium 4.2 3.5-5.3 mmol/L Chloride 107 97-108 mmol/L CO2 24 22-32 mmol/L Glucose 91 65-99 mg/dL BUN 23 8-23 mg/dL Creatinine 1.18 0.50-1.00 mg/dL Calcium 9.3 8.6-10.4 mg/dL eGFR by Creatinine 49 >59 mL/min/1.73m2 P-Comprehensive Metabolic Pa harvey (CMP) Reviewed date:01/18/2025 09:11:37 AM Interpretation:Cr 1.3, gfr 44 Performing Lab: Notes/Report: Test performed by [facility] [address] [place] [address] , [address], [place] [address] Cody Vaz MD, Cdl Bulk Driver CLIA: [id number] Sodium 142 135-145 mmol/L Potassium 4.2 3.5-5.3 [...] Interpretation:Normal Performing Lab: Notes/Report: Test performed by [email or web address] [address] [facility] , [address], [place] [address] Cody Vaz MD, Cdl Bulk Driver CLIA: [id number] Cholesterol 138 <200 mg/dL Triglycerides 145 <150 [...] Results: 66 Units: mg/dL % Change: -4% P-Comprehensive Metabolic Pa harvey (CMP) Reviewed date:04/30/2025 08:44:27 AM Interpretation:BUN 24, Creat 1.38, eGFR 40 Performing Lab: Notes/Report: Test performed by [email or web address], [address] , [address], [place] [address] Cody Vaz MD, Cdl Bulk Driver CLIA: [id number] Sodium 141 135-145 mmol/L Potassium 3.8 3.5-5.3 [...] 0.5 <0.2-1.2 mg/dL A/G Ratio 1.5 1.1-2.5 Reason For Referral No Information Medications Medication SIG (Take, Route, Frequency, Duration) Notes Start Date End Date Status Tylenol 325 MG 2 tab(s) orally ever y 4 hours Active Melatonin 5 MG 1 tablet in the even ing Orally Once each night as needed Active Triamterene-HCTZ 37.5-25 MG 1/2 tab(s) o rally once a day; Duration: 90 days Active Aspirin Adult Low Dose 81 MG 1 tablet Orally Once a day; Duration: 30 day(s) 02/22/2023 Active Calcium + D 600-200 MG-UNIT 1 tablet Ora lly Twice a day; Duration: 30 day(s) Active Alendronate Sodium 35 MG TAKE 1 TABLET B Y MOUTH ONCE A WEEK 30 MINUTES BEFORE FIRST FOOD, BEVERAGE, OR MEDICINE OF THE DAY WITH PLAIN WATER; Duration: 56 Active Xyzal Allergy 24HR 5 MG 1 tablet in the evening Orally Once a day Active Pravastatin Sodium 40 MG Take 1 tablet b y mouth once daily; Duration: 90 Active Multi For Her 50+ - as directed Orally Active Vitamin D-3 25 MCG (1000 UT) 1 capsule Orally Once a day; Duration: 30 day(s) Active Lisinopril 10 MG Take 1 tablet by donna th once daily; Duration: 90 Active DULoxetine HCl 30 MG Take 1 capsule by m outh once daily; Duration: 90 Active Eliquis 5 MG Take 1 tablet by donna th twice daily; Duration: 90 Active Immunizations Vaccine Route Administration Date Status Comme nts xFluzone (6mos and older)-trivalent IM Intramuscular 05/01/2014 Administered Tetanus Tdap-Adacel (over 7yrs) IM Intramuscular 06/25/2015 Administered Shingrix IM Intramuscular 09/17/2018 Administered Shingrix IM Intramuscular 11/29/2018 Administered Shingrix Unknown 11/29/2018 Administered Prevnar (PCV20) IM Intramuscular 04/26/2025 Administered Prevnar (PCV13) IM Intramuscular 06/28/2018 Administered PNEUMOVAX 23 VACCINE IM Intramuscular 07/18/2019 Administe red PNEUMOVAX 23 VACCINE Unknown 07/18/2019 Administered Fluzone Quad (6months&older) IM Intramuscular 03/17/2016 Administered Fluzone Quad (6months&older) IM Intramuscular 03/15/2017 Administered Fluzone Intradermal Quad private(18-64yrs) ID Intradermal 04/29/2015 Administered Fluzone High Dose (65yr and older) IM Intramuscular 03/22/2018 Administered Fluzone High Dose (65yr and older) IM Intramuscular 04/06/2019 Administered Fluzone High Dose (65yr and older) IM Intramuscular 03/17/2020 Administered Fluzone High Dose (65yr and older) IM Intramuscular 03/27/2021 Administered Fluzone High Dose (65yr and older) IM Intramuscular 03/24/2022 Administered Fluzone High Dose (65yr and older) IM Intramuscular 03/24/2023 Administered Fluzone High Dose (65yr and older) IM Intramuscular 05/18/2024 Administered Fluzone High Dose (65yr and older) IM Intramuscular 03/21/2025 Administered COVID 19 Moderna IM Intramuscular 09/30/2020 Administered COVID 19 Moderna Unknown 10/28/2020 Administered COVID 19 Moderna Unknown 05/06/2021 Administered COVID 19 Moderna Unknown 10/04/2021 Administered Problems Problem Type SNOMED Code ICD Code Onset Dates Problem Status W/U Status Risk Notes Problem Essential hypertension (53163829) Essential (primary) hypertension (I10) Active confirmed Problem Essential hypertension (08005799) Essential hypertension (I10) Active confirmed Problem Abnormal mammogram (535122905) Abnormal mammogram (R92.8) Active confirmed Problem Otitis externa (7996022) Otitis externa (H60.90) Active confirmed Problem Anxiety (38606829) Anxiety (F41.9) Active confi rmed Problem Osteopenia (446036581) Osteopenia (M85.80) Active confirmed Problem Mixed anxiety and depressive disorder (278951119) Depression with anxiety (F41.8) Active confirmed Problem Localized edema (8766237) Localized edema (R60.0) Active confirmed Problem Pure hypercholesterolemia (932013870) Pure hypercholesterolemia (E78.0) Active confirmed Problem Insomnia disorder related to another mental disorder (74732544) Insomnia due to other mental disorder (F51.05) Active confirmed Problem Mental disorder (02169460) Mental disorder, not otherwise specified (F99) Active confirmed Problem Gastroesophageal reflux disease without esophagitis (114583529) Gastroesophageal reflux disease without esophagitis (K21.9) Active confirmed Problem Renal insufficiency (365360529) Renal insufficiency (N28.9) Active confirmed Problem Leukocytosis (970633582) Leukocytosis, unspecified type (D72.829) Active confirmed Problem Iron deficiency anemia (17433249) Iron deficiency anemia, unspecified iron deficiency anemia type (D50.9) Active confirmed Problem Long-term current us e of anticoagulant (084583744) Current use of half-way anticoagulation (Z79.01) Active confirmed Problem Body mass index 30.0 0 to 34.99 (071274785859840) BMI 31.0-31.9,adult (Z68.31) Active confirmed Problem Dyslipidemia (747700384) Dyslipidemia (E78.5) Active confirmed Problem Pure hypercholesterolemia (620805071) Pure hypercholesterolemia (E78.00) Active confirmed Problem Contracture of suarez r fascia (130711708) Dupuytren's contracture (M72.0) Active confirmed Problem Osteoarthritis of knee (570668702) Arthropathy of both knees (M17.0) Active confirmed Problem Fibrocystic breast changes (29821714) Fibrocystic breast disease (FCBD), unspecified laterality (N60.19) Active confirmed Problem Seasonal allergic rhinitis (014376934) Seasonal allergic rhinitis, unspecified trigger (J30.2) Active confirmed Problem Acute deep venous thrombosis of left femoral vein (578040372358710) Acute deep vein thrombosis (DVT) of femoral vein of left lower extremity (I82.412) Active confirmed Problem History of left hip replacement (1189853702561964) History of left hip replacement (Z96.642) Active confirmed Problem Peripheral neuropath y of bilateral lower limbs (disorder) (99906554397784326) Neuropathy involving both lower extremities (G57.93) Active confirmed Problem S/P hip hemiarthroplasty (Z96.649) Active confirmed Problem Chronic kidney disease stage 3B (disorder) (938281094) Stage 3b chronic kidney disease (CKD) (N18.32) Active confirmed Problem Pure hypercholesterolemia (387737623) Pure hypercholesterolemia with target low density lipoprotein (LDL) cholesterol less than 130 mg/dL (E78.00) Active confirmed Vital Signs Heart Rate 52 /min 04/26/2025 Blood pressure diastolic 70 mm Hg 04/26/2025 Height 70 in 04/26/2025 Blood pressure systolic 110 mm Hg 04/26/2025 Weight 225.0 lbs 04/26/2025 BMI 32.28 kg/m2 04/26/2025 Encounters Encounter Location Date Provider Diagnosis [facility] [address] [facility] [address] [place] [id number] 05/18/2024 Darryl Danielson Essential hypertensi on I10 ; Pure hypercholesterolemia E78.0 ; 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 ; Current use of terminal supervisor anticoagulation Z79.01 ; Encounter for immunization Z23 ; Renal insufficiency N28.9 and Pure hypercholesterolemia with target low density lipoprotein (LDL) cholesterol less than 130 mg/dL E78.00 [facility] [address] [place], [place] [id number] 08/03/2024 Darryl Danielson Essential hypertensi on I10 ; Pure hypercholesterolemia E78.0 ; 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 ; Current use of half-way anticoagulation Z79.01 ; Encounter for immunization Z23 ; Renal insufficiency N28.9 and Pure hypercholesterolemia with target low density lipoprotein (LDL) cholesterol less than 130 mg/dL E78.00 [facility] [address] [facility] [address] [place], [place] [id number] 10/29/2024 Darryl Danielson Essential hypertensi on I10 ; History of left hip replacement Z96.642 ; Stage 3b chronic kidney disease (CKD) N18.32 ; Pure hypercholesterolemia E78.00 and BMI 31.0-31.9,adult Z68.31 [facility] [address] [facility] [address] [place], [place] [id number] 03/21/2025 Sabine Watts Encounter for immuni zation Z23 [facility] [address] [facility] [address] [place], [place] [id number] 04/26/2025 Darryl Danielson Renal insufficiency N28.9 ; 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 ; Essential (primary) hypertension I10 ; Localized edema R60.0 ; Current use of half-way anticoagulation Z79.01 ; Encounter for immunization Z23 and Fibrocystic breast disease (FCBD), unspecified laterality N60.19 [facility] [address] [facility] [address] [place], [place] [id number] 05/28/2024 Darryl Danielson [facility] [address] [facility] [address] [place] [id number] 08/06/2024 Darryl Danielson [facility] [address] [facility] [address] [place] [id number] 08/29/2024 Darryl Danielson [facility] [address] [facility] [address] [place] [id number] 01/18/2025 Darryl Danielson [facility] [address] [facility] [address] [place], [place] [id number] 04/30/2025 Darryl Danielson Assessments Encounter Date Diagnosis (ICD Code) Assessment Notes Treatment Notes Treatment Clinical Notes Section Notes 05/18/2024 Essential hypertensi on (ICD-10 - I10) 05/18/2024 Pure hypercholesterolemia (ICD-10 - E78.0) 08/03/2024 Essential hypertensi on (ICD-10 - I10) 08/03/2024 Pure hypercholesterolemia (ICD-10 - E78.0) 10/29/2024 Essential hypertensi on (ICD-10 - I10) continue current therapy 03/21/2025 Encounter for immunization (ICD-10 - Z23) 10/29/2024 History of left hip replacement (ICD-10 - Z96.642) 04/26/2025 Renal insufficiency (ICD-10 - N28.9) 04/26/2025 S/P hip hemiarthropl asty (ICD-10 - Z96.649) 10/29/2024 Stage 3b chronic kid kaila disease (CKD) (ICD-10 - N18.32) 04/26/2025 Essential (primary) hypertension (ICD-10 - I10) 08/03/2024 S/P hip hemiarthropl asty (ICD-10 - Z96.649) 05/18/2024 S/P hip hemiarthropl asty (ICD-10 - Z96.649) 05/18/2024 Current use of terminal supervisor anticoagulation (ICD-10 - Z79.01) 08/03/2024 Current use of half-way anticoagulation (ICD-10 - Z79.01) 04/26/2025 Localized edema (ICD -10 - R60.0) 10/29/2024 Pure hypercholesterolemia (ICD-10 - E78.00) 10/29/2024 BMI 31.0-31.9,adult (ICD-10 - Z68.31) 04/26/2025 Current use of terminal supervisor anticoagulation (ICD-10 - Z79.01) 08/03/2024 Encounter for immunization (ICD-10 - Z23) 05/18/2024 Encounter for immunization (ICD-10 - Z23) 05/18/2024 Renal insufficiency (ICD-10 - N28.9) 08/03/2024 Renal insufficiency (ICD-10 - N28.9) 04/26/2025 Encounter for immunization (ICD-10 - Z23) 08/03/2024 Pure hypercholesterolemia with target low density lipoprotein (LDL) cholesterol less than 130 mg/dL (ICD-10 - E78.00) 04/26/2025 Fibrocystic breast disease (FCBD), unspecified laterality (ICD-10 - N60.19) 05/18/2024 Pure hypercholesterolemia with target low density lipoprotein (LDL) cholesterol less than 130 mg/dL (ICD-10 - E78.00) Plan Of Treatment Pending Test Test Name Order Date Mammogram 04/26/2025 Mammogram 04/26/2025 Next Appt Details Provider Name:Darryl Smith er, 06/28/2025 10:30:00 AM, [address] [facility], [address], [place], [place], [id number], Insurance Providers Payer Name Payer Address Payer Phone Subscriber Number Group Number Insured Name Patient Relationship to Insured Coverage Start Date Coverage End Date MEDICARE PART B [address] [address] [place] [id number] Madhav Burks Self - patient is the insured [facility] [address] [place] [id number] Madhav Burks Self - patient is the insured 7 Medical (General) History Medical History History ICD Code Had Shingrix x2 2019 COVID Moderna Vaccination Hypertension hyperlipidemia Esophageal reflux anxiety Fibrocystic Breast Disease Osteopenia insomnia Chronic kidney disease stage 3b as Surgical History Surgery Date(Month/Year) Tonsillectomy 2001 LT Total Hip Replacement 01/2023 Hospitalization History Reason Date(Month/Year) LT Hip Fracture 01/2023
--- NOTE | 2025-05-17 14:53 | MM_ITS ---
PROCEDURE INFORMATION: Exam: MG Bilateral Screening 3D Mammography Exam date and time: 05/17/2025 2:54 PM Age: 74 years old Clinical indication: Screening examination TECHNIQUE: Imaging protocol: Bilateral Screening tomosynthesis and 2D mammography including computer-aided detection (CAD) when performed. COMPARISON: 1. MG MM DIG MAMM DX UNILAT RT CAD 02/10/2022 2:01 PM 2. MG MM DIG SCREENING MAMM BI W/CAD 01/14/2022 9:35 AM FINDINGS: MAMMOGRAPHY: Breast composition: There are scattered areas of fibroglandular density. Mass: None. Architectural distortion: None. Calcifications: No suspicious calcifications. Asymmetric density: Questionable focal glandular asymmetry in the right upper inner quadrant middle depth measuring 1.2 cm. Skin thickening: None. Axillary adenopathy: None. IMPRESSION: Patient to be recalled for spot compression views of the right breast in the CC and MLO projections, a full 90 degree lateral view, and right breast ultrasound for further evaluation of a right breast focal asymmetry. ASSESSMENT: BI-RADS Category 0: Incomplete- Need Additional Imaging Evaluation.
== END 2025-05-17 23:59 | disposition home or self-care (01) ==
LOC: RAD 14:31
PROVIDERS: PCP Family Medicine; Visit Provider Family Medicine
DX: Z12.31 Encounter for screening mammogram for malignant neoplasm of breast (principal); R92.323 Mammographic fibroglandular density, bilateral breasts; R92.8 Other abnormal and inconclusive findings on diagnostic imaging of breast
CPT/HCPCS: 77063; 77067

== ENCOUNTER 2025-06-17 14:28 | Outpatient (CLI) | payer MEDICARE, OTHER, SELFPAY ==
--- OUTSIDE RECORDS SUMMARY | 2024-02-17 05:45 | XMS_ITS ---
Author Organization [facility] Address [address] [facility] [address] [place] [id number] Care Team Providers Care Technical Sourcing Recruiter Name Role Phone Darryl Danielson Primary Care Provider [phone] Allergies No Known Allergies Results Component Value Reference Range Notes P-Antinuclear Antibodies (AN A) Screen Reviewed date:02/29/2024 01:47:37 PM Interpretation:Normal Performing Lab: Notes/Report: Test performed by [employer] [address] [place], [place] [address] [place] , [address], [place] [address] Cody Vaz MD, Sample Finisher CLIA: [id number] Antinuclear Antibodies (KRISH) Screen Negative Negative Test performed by [employer] Bead Immunoassay methodology. P-Sed Rate (ESR) Reviewed date:02/29/2024 01:47:37 PM Interpretation:Normal Performing Lab: Notes/Report: Test performed by [employer] [address] [place], [place] [address], [address], [place] [address] Cody Vaz MD, Sample Finisher CLIA: [id number] Erythrocyte Sedimentation Ra te (ESR), Automated 6 <31 mm/hr P-Rheumatoid Factor Reviewed date:02/29/2024 01:47:37 PM Interpretation:Normal Performing Lab: Notes/Report: Test performed by [employer] [address] [place], [place] [address], [address], [place] [address] Cody Vaz MD, Sample Finisher CLIA: [id number] Rheumatoid Factor <10 <14.1 IU/mL P-Uric Acid Reviewed date:02/29/2024 01:47:37 PM Interpretation:Normal Performing Lab: Notes/Report: Test performed by [facility] [address] [place] [address] , [address], [place] [address] Cody Vaz MD, Sample Finisher CLIA: [id number] Uric Acid 6.6 2.4-7.0 mg/dL P-KRISH Reviewed [...] Status Risk Notes Problem Osteoarthritis of knee (113761566) Arthropathy of both knees (M17.0) Active confirmed Vital Signs Weight 221.0 lbs 02/17/2024 Blood pressure systolic 126 mm Hg 02/17/20 24 Blood pressure diastolic 72 mm Hg 024 Heart Rate 62 /min 02/17/2024 Height 70 in 02/17/2024 BMI 31.71 kg/m2 02/17/2024 Encounters Encounter Location Date Provider Diagnosis [facility] [address] [facility] [address] [place] [id number] 02/17/2024 Darryl Danielson Essential (primary) hypertension I10 [address], [place], [id number], Progress Notes * Hannah MCLAUGHLINeDOB:1950 (75 yo F)Acc No.[id number]:02/17/2024 Progress Notes Patient: Madhav KING Provider: Darryl Danielson M.D. :1950 A ge:73 Y S ex:Female Date:02/17/2024 Address:[address] [place] [place] [id number] Subjective: * Chief Complaints: * 1 . [...] (KRISH) Screen Negative Negat delphine - * [facility], IT support 02/21/2024 05:35:04 : This order was created by the Interface. Mary Kate Zuniga 02/29/2024 1:47:24 PM >Patient informed of normal results. * Procedure Codes: G 2211 Complex e/m visit add on, 3074F SYST BP LT 130 MM HG, 3078F DIAST BP < 80 MM HG * Follow Up: 3 Months * Images: Billing Information: * Visit Code: 52780 Office Visit, Est Pt., Level 4. * Procedure Codes: G2211 Complex e/m visit add on. 3074F SYST BP LT 130 MM HG. 3078F DIAST BP < 80 MM HG. * Electronic signature of Darryl Danielson MD on 06/17/2025 at 02:32 PM EST Sign off status: Pending * Provider: Darryl Danielson M.D. Date: 0 02/17/2024 Generated for Camposi la/Mckinley/Laraitting on: 1 02:32 PM EST History and Physical Notes * [...]
--- OUTSIDE RECORDS SUMMARY | 2024-04-02 08:45 | XMS_ITS ---
Author Organization [facility] Address [address] [place] [phone] Care Team Providers Care Yarding Supervisor Name Role Phone Darryl Danielson Primary Care Provider [phone] Ashley Bar Unavailable [phone] Allergies No Known Allergies REASON FOR VISIT Right Ear Stopped Up Medications Medication SIG (Take, Route, Frequency, Duration) Notes Start Date End Date Status Pravastatin Sodium 40 MG TAKE 1 TABLET B Y MOUTH ONCE DAILY AT BEDTIME; Duration: 90 Active Alendronate Sodium 35 MG TAKE 1 TABLET B Y MOUTH ONCE A WEEK 30 MINUTES BEFORE THE FIRST FOOD, BEVERAGE, OR MEDICINE OF THE DAY WITH PLAIN WATER; Duration: 28 Active Eliquis 5 MG Take 1 tablet by twice daily; Duration: 30 Active Triamterene-HCTZ 37.5-25 MG 1 tab(s) ora lly once a day Active DULoxetine HCl 30 MG Take 1 capsule by outh once daily; Duration: 30 days Active Melatonin 5 MG 1 tablet in the even ing Orally Once each night as needed Active Tylenol 325 MG 2 tab(s) orally ever y 4 hours Active Vitamin D-3 25 MCG (1000 UT) 1 capsule O rally Once a day; Duration: 30 day(s) Active Multi For Her 50+ - as directed Orally Active Aspirin Adult Low Dose 81 MG 1 tablet Or ally Once a day; Duration: 30 day(s) 02/22/2023 Active Ciprofloxacin HCl 0.2 % 0.25 ml into aff ected ear Otic every 12 hrs; Duration: 7 day(s) 04/02/2024 Active Calcium + D 600-200 MG-UNIT 1 tablet Ora lly Twice a day; Duration: 30 day(s) Active Problems Problem Type SNOMED Code ICD Code Onset Dates Problem Status W/U Status Risk Notes Problem Otitis externa (2326597) Otitis externa (H60.90) Active confirmed Vital Signs Weight 218.6 lbs 04/02/2024 Blood pressure systolic 126 mm Hg 04/02/20 24 Blood pressure diastolic 78 mm Hg 024 Heart Rate 60 /min 04/02/2024 Height 70 in 04/02/2024 BMI 31.36 kg/m2 04/02/2024 Encounters Encounter Location Date Provider Diagnosis [facility] [address] [facility] [address] [place], [place] [phone] 04/02/2024 Ashley Bar Otitis externa H60.9 0 Assessments Encounter Date Diagnosis (ICD Code) Assessment Notes Treatment Notes Treatment Clinical Notes Section Notes 04/02/2024 Otitis externa (ICD-10 - H60.90) keep ear dry except for gtts Plan Of Treatment Medication Medication Name Sig Start Date Stop Date Notes Ciprofloxacin HCl 0.2 % 0.25 ml into aff ected ear Otic every 12 hrs; Duration: 7 day(s) 04/02/2024 Treatment Notes Assessment Notes Otitis externa keep ear dry except for gtts Next Appt Details Follow Up: prn, Reason: Provider Name:Darryl Smith er, 06/28/2025 10:30:00 AM, [address] [facility], [address], [place], [place], [phone], Progress Notes * Narcisa MCLAUHGLINOB:1950 (75 yo F)Acc No.[id number]:04/02/2024 Progress Notes Patient: Madhav KING Provider: DINESH Lowry :1950 A ge:73 Y S ex:Female Date:04/02/2024 Address:[address] [place], [place] [id number] Pcp:Darryl Danielson Subjective: * Chief Complaints: * 1 . Right Ear Stopped Up. * HPI: E NT/respiratory: 73 year old female presents with c/o cough h as had a cough which she cannot get over. c/o ear stopped up P t is here today with c/o right ear being stopped up. Pt sts that it is swollen in her right cheek as well and sts that her ear gargles like it wants to unstop, but it does not. Pt sts her ear has been stopped up for over a week . Denies : sore throat. D enies : ear pain. * ROS: D ERMATOLOGY: no R richardson. n o H alysia. G ASTROENTEROLOGY: no N ausea. n o V omiting. n o D iarrhea.? U ROLOGY: no D ifficulty urinating. n o B lood in urine. * Medical History: H ad Shingrix x2 2018, COVID Moderna Vaccination, Hypertension, Hyperlipidemia, Esophageal reflux, [...] Once each night as needed , Taking Tylenol 325 MG Tablet 2 tab(s) orally every 4 hours , Taking Aspirin Adult Low Dose 81 MG Tablet Delayed Release 1 tablet Orally Once a day , Taking Eliquis 5 MG Tablet Take 1 tablet by mouth twice daily , Taking Pravastatin Sodium 40 MG Tablet TAKE 1 TABLET BY MOUTH ONCE DAILY AT BEDTIME , Taking Alendronate Sodium 35 MG Tablet TAKE 1 TABLET BY MOUTH ONCE A WEEK 30 MINUTES BEFORE THE FIRST FOOD, BEVERAGE, OR MEDICINE OF THE DAY WITH PLAIN WATER , Taking Triamterene-HCTZ 37.5-25 MG Tablet 1 tab(s) orally once a day , Taking DULoxetine HCl 30 MG Capsule Delayed Release Particles Take 1 capsule by mouth once daily , Medication List reviewed and reconciled with the patient * Allergies: N .K.D.A. Objective: * Vitals: W t:218.6, Temp:98.4, BP:126/78, HR:60, O2 Sat:98% on RA, Nurse:TANVIR, Ht: 70, BMI:31.36. * Examination: E NT/Respiratory: General Appearance: well nourished and hydrated NAD alert active. E yes: sclera and conjunctiva clear. E ars: left TM and canal appear normal; right TM is normal and canal with some edema. N ose : nares patent. O ral cavity : no erythema or exudate seen on pharynx. N jeni : supple no cervical lymphadenopathy. H eart : RRR. L ungs: CTAB A&P. Assessment: * Assessment: 1. O titis externa - H60.90 (Primary) S pecify :right Plan: * Treatment: * Procedure Codes: 9 4760 PULSE OX * Follow Up: p rn * Images: Billing Information: * Visit Code: 14218 Office Visit, Est Pt., Level 3. * Procedure Codes: 62166 PULSE OX. * Electronic signature of Brittni Bar APRN on 06/17/2025 at 02:33 PM EST Sign off status: Pending * Provider: DINESH Lowry Date: 1 Generated for Panchito tovar/Mckinley/Laraitting on: 02:33 PM EST History and Physical Notes * HPI (History of Present Illness) Category Sub-Category Detail Notes Category Not es ENT/respiratory sore throat ear pain cough has had a cough whic h she cannot get over ear stopped up Pt is here today wit h c/o right ear being stopped up. Pt sts that it is swollen in her right cheek as well and sts that her ear gargles like it wants to unstop, but it does not. Pt sts her ear has been stopped up for over a week Examination Category Sub-Category Detail Notes Category Not es ENT/Respiratory Oral cavity : no erythema or exudate s een on pharynx Ears: left TM and canal ap pear normal; right TM is normal and canal with some edema Neck : supple no cervical l ymphadenopathy Heart : RRR Lungs: CTAB A&P General Appearance: well nourished and h ydrated NAD alert active Nose : nares patent Eyes: sclera and conjuncti va clear
--- OUTSIDE RECORDS SUMMARY | 2024-04-09 06:00 | XMS_ITS ---
Author Organization [facility] Address [address] [place] [phone] Care Team Providers Care Orthotics Technician Name Role Phone Darryl Danielson Primary Care Provider Ashley Bar Unavailable [phone] Allergies No Known Allergies REASON FOR VISIT [...] day; Duration: 30 day(s) Active Vital Signs Weight 219.6 lbs 04/09/2024 Blood pressure systolic 120 mm Hg 04/09/20 24 Blood pressure diastolic 70 mm Hg 024 Heart Rate 57 /min 04/09/2024 Height 70 in 04/09/2024 BMI 31.51 kg/m2 04/09/2024 Encounters Encounter Location Date Provider Diagnosis [facility] [address] [facility] [address] [facility] [address] [place] [id number] 04/09/2024 Ashley Bar Otitis media, left H66.92 [...] Name:Darryl Smith , 06/28/2025 10:30:00 AM, [address] [facility] [address] [facility], [address], [place], [id number], Progress Notes * Narcisa MCLAUGHLINOB:1950 (75 yo F)Acc No.[id number]:04/09/2024 Progress Notes Patient: Madhav KING Provider: DINESH Lowry :1950 A ge:73 Y S ex:Female Date:04/09/2024 Address:[address] [place], [place] [address]ILLA [id number] Pcp:Darryl Danielson Subjective: * Chief Complaints: * [...] * Images: Billing Information: * Visit Code: 12781 Office Visit, Est Pt., Level 3. * Procedure Codes: 53668 PULSE OX. * Electronic signature of Brittni Bar APRN on 06/17/2025 at 02:32 PM EST Sign off status: Pending * Provider: DINESH Lowry Date: Generated for Panchito tovar/Mckinley/Laraitting on: 02:32 PM EST History and Physical Notes [...]
--- OUTSIDE RECORDS SUMMARY | 2024-05-18 04:45 | XMS_ITS ---
[facility] Address [address] [place] [phone] Care Team Providers Care Handle Machine Operator Name Role Phone Darryl Danielson Primary Care Provider Allergies No Known Allergies Results Component Value Reference Range Notes P-Comprehensive Metabolic Pa harvey (CMP) Reviewed date:05/28/2024 01:02:36 PM Interpretation:cl 109, Cr 1.4, gfr 40 Performing Lab: Notes/Report: Test performed by [facility] [address] [place] [address] , [address], [place] [address] Cody Vaz MD, Make Up Operator CLIA: [id number] Sodium 144 135-145 mmol/L Potassium 4.1 3.5-5.3 mmol/L Chloride 109 97-108 mmol/L CO2 24 22-32 mmol/L Glucose 85 65-99 mg/dL BUN 20 8-23 mg/dL Creatinine 1.40 0.50-1.00 mg/dL Calcium 9.0 8.6-10.4 mg/dL eGFR by Creatinine 40 >59 mL/min/1.73m2 Protein 6.4 6.0-8.3 g/dL Albumin 4.1 3.5-5.3 g/dL Alkaline Phosphatase 75 35-121 IU/L ALT (SGPT) 17 <5-47 IU/L AST (SGOT) 25 <5-40 IU/L Bilirubin, Total 0.6 <0.2-1.2 mg/dL A/G Ratio 1.8 1.1-2.5 P-Lipid Panel Reviewed date:05/28/2024 01:02:36 PM Interpretation:Normal Performing Lab: Notes/Report: Test performed by [facility], [address] , [address], [place] [address] Cody Vaz MD, Make Up Operator CLIA: [id number] Cholesterol 144 <200 mg/dL Triglycerides 120 <150 mg/dL HDL Cholesterol 51 >39 mg/dL Cholesterol / HDL Ratio 2.82 0.00-4.44 Ratio Non-HDL Cholesterol 93 <130 mg/dL LDL Cholesterol (Calculation) 69 <130 mg/dL LDL Cholesterol Levels* Less than 100 mg/dL Optimal 100 to 129 mg/dL Near Optimal/ Above Optimal 130 to 159 mg/dL Borderline High 160 to 189 mg/dL High 190 mg/dL and above Very High * Categories as recommended by the 2004 ATPIII guidelines LDL/HDL Ratio 1.4 <3.3 Ratio LDL Cholesterol Patient History Test Date: 11/22/2022 LDL Results: 80 Units: mg/dL % Change: - Test Date: 05/18/2024 LDL Results: 69 Units: mg/dL % Change: -13% REASON FOR VISIT 3 months, Needs labs & flu vaccine Medications Medication SIG (Take, Route, Frequency, Duration) Notes Start Date End Date Status Pravastatin Sodium 40 MG TAKE 1 TABLET B Y MOUTH ONCE DAILY AT BEDTIME; Duration: 90 days Active Alendronate Sodium 35 MG TAKE 1 TABLET B Y MOUTH ONCE A WEEK 30 MINUTES BEFORE THE FIRST FOOD, BEVERAGE, OR MEDICINE OF THE DAY WITH PLAIN WATER; Duration: 28 Active DULoxetine HCl 30 MG Take 1 capsule by m out once daily; Duration: 30 days Active Tylenol 325 MG 2 tab(s) orally ever y 4 hours Active Aspirin Adult Low Dose 81 MG 1 tablet Orally Once a day; Duration: 30 day(s) 02/22/2023 Active Melatonin 5 MG 1 tablet in the even ing Orally Once each night as needed Active Triamterene-HCTZ 37.5-25 MG 1 tab(s) ora lly once a day Active Eliquis 5 MG Take 1 tablet by twice daily; Duration: 30 Active Calcium + D 600-200 MG-UNIT 1 tablet Ora lly Twice a day; Duration: 30 day(s) Active Vitamin D-3 25 MCG (1000 UT) 1 capsule Orally Once a day; Duration: 30 day(s) Active Multi For Her 50+ - as directed Orally Active Immunizations Vaccine Route Administration Date Status Comme nts Fluzone High Dose (65yr and older) IM Intramuscular 05/18/2024 Administered Problems Problem Type SNOMED Code ICD Code Onset Dates Problem Status W/U Status Risk Notes Problem Pure hypercholesterolemia (340378516) Pure hypercholesterolemia with target low density lipoprotein (LDL) cholesterol less than 130 mg/dL (E78.00) Active confirmed Vital Signs Weight 220.2 lbs 05/18/2024 Blood pressure systolic 150 mm Hg 05/18/20 24 Blood pressure diastolic 80 mm Hg 024 Heart Rate 56 /min 05/18/2024 Height 70 in 05/18/2024 BMI 31.59 kg/m2 05/18/2024 Encounters Encounter Location Date Provider Diagnosis [facility] [address] [place], [place] [id number] 05/18/2024 Darryl Danielson Essential hypertensi on I10 ; Pure hypercholesterolemia E78.0 ; 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 ; Current use of care home anticoagulation Z79.01 ; Encounter for immunization Z23 ; Renal insufficiency N28.9 and Pure hypercholesterolemia with target low density lipoprotein (LDL) cholesterol less than 130 mg/dL E78.00 Assessments Encounter Date Diagnosis (ICD Code) Assessment Notes Treatment Notes Treatment Clinical Notes Section Notes 05/18/2024 Essential hypertensi on (ICD-10 - I10) 05/18/2024 Pure hypercholesterolemia (ICD-10 - E78.0) 05/18/2024 S/P hip hemiarthropl asty (ICD-10 - Z96.649) 05/18/2024 Current use of care home anticoagulation (ICD-10 - Z79.01) 05/18/2024 Encounter for immunization (ICD-10 - Z23) 05/18/2024 Renal insufficiency (ICD-10 - N28.9) 05/18/2024 Pure hypercholesterolemia with target low density lipoprotein (LDL) cholesterol less than 130 mg/dL (ICD-10 - E78.00) Plan Of Treatment Next Appt Details Follow Up: 4 Months, Reason: Provider Name:Darryl Smith , 06/28/2025 10:30:00 AM, [address] [facility] [address] [facility], [address] , [place], [place], [id number], Progress Notes * Hannah MCLAUGHLINJacOB:1950 (75 yo F)Acc No.[id number]:05/18/2024 Progress Notes Patient: Madhav KING Provider: Darryl Danielson M.D. :1950 A ge:73 Y S ex:Female Date:05/18/2024 Address:[address] [place] [id number] Subjective: * Chief Complaints: * 1 . 3 months. 2. Needs labs & flu vaccine. * HPI: C ardiology: The patient is here for a check up on Hypertension and Hyperlipidemia. Pt states she doing good and denies any new concerns. Denies : Chest Pain. D enies : Short of Breath. D enies : Dizziness. D enies : Palpitations. P sychology: Chilli Willi story!. * ROS: D ERMATOLOGY: no R richardson. [...] tablet by mouth twice daily , Taking Triamterene-HCTZ 37.5-25 MG Tablet 1 tab(s) orally once a day , Taking DULoxetine HCl 30 MG Capsule Delayed Release Particles Take 1 capsule by mouth once daily , Taking Pravastatin Sodium 40 MG Tablet TAKE 1 TABLET BY MOUTH ONCE DAILY AT BEDTIME , Taking Alendronate Sodium 35 MG Tablet TAKE 1 TABLET BY MOUTH ONCE A WEEK 30 MINUTES BEFORE THE FIRST FOOD, BEVERAGE, OR MEDICINE OF THE DAY WITH PLAIN WATER , Discontinued Ciprofloxacin HCl 0.2 % Solution 0.25 ml into affected ear Otic every 12 hrs , Discontinued Medrol 4 MG Tablet Therapy Pack as directed orally daily , Medication List reviewed and reconciled with the patient * Allergies: N .K.D.A. Objective: * Vitals: W t:220.2, Temp:98.1, BP:150/80, HR:56, O2 Sat:100% on RA, Nurse:YANELIS, Ht: 70, BMI:31.59. * Examination: G eneral Examination: General Appearance: N AD, note weight gain. H EENT:?unremarkable. O ral cavity: n o lesions, mucosa moist and WNL, no erythema. N jeni: ?supple, no lymphadenopathy. C hest: n ormal shape and expansion. H eart: R SR. Lungs: c lear to auscultation. A bdomen: soft and nontender. N eurologic Exam:?Intact, gait is good without cane. S kin: n ormal, no rash. P eripheral pulses: normal . E xtremities: M inimal leg edema, osteoarthritic changes of the knees, right moreso than left. Assessment: * Assessment: 1. E ssential hypertension - I10 (Primary) 2 . P ure hypercholesterolemia - E78.0 3 . S /P hip hemiarthroplasty - Z96.649 4 . C urrent use of care home anticoagulation - Z79.01 5 . E ncounter for immunization - Z23 6. R enal insufficiency - N28.9 7 . P ure hypercholesterolemia with target low density lipoprotein (LDL) cholesterol less than 130 mg/dL - E78.00 ? Plan: * Treatment: Value Reference Range A /G Ratio 1.8 1.1-2.5 - * A lbumin 4.1 3.5-5.3 - g/dL * A lkaline Phosphatase 75 35-121 - IU/L * A LT (SGPT) 17 <5-47 - IU/L * A ST (SGOT) 25 <5-40 - IU/L * B ilirubin, Total 0.6 <0.2-1.2 - mg/dL * B UN 20 8-23 - mg/dL * C alcium 9.0 8.6-10.4 - mg/dL * C hloride 109 H 97-108 - mmol/L * C O2 24 22-32 - mmol/L * C reatinine 1.40 H 0.50-1.00 - mg/dL * G lucose 85 65-99 - mg/dL * P otassium 4.1 3.5-5.3 - mmol/L * S odium 144 135-145 - mmol/L * P rotein 6.4 6.0-8.3 - g/dL * e GFR by Creatinine 40 L >59 - mL/min/1.73m2 * Nkechi Kulkarni Ann 4 1:02:27 PM >See phone encounter 2.?Pure hypercholesterolemia with target low density lipoprotein (LDL) cholesterol less than 130 mg/dL?LAB: P-Lipid Panel (Collection Date & Time - 05/18/2024 08:55 AM)?Normal* Value Reference Range C holesterol / HDL Ratio 2.82 0.00-4.44 - Ratio * C holesterol 144 <200 - mg/dL * H DL Cholesterol 51 >39 - mg/dL * L DL Cholesterol (Calculation) 69 <130 - mg/d L * L DL/HDL Ratio 1.4 <3.3 - Ratio * N on-HDL Cholesterol 93 <130 - mg/dL * T riglycerides 120 <150 - mg/dL * Nkechi Kulkarni Ann 4 1:02:27 PM >See phone encounter * Immunizations: Fluzone High Dose (65yr and older) : 0.5 mL (Route: Intramuscular) given by Mary Kate Zuniga on Right Deltoid * Procedure Codes: 9 4760 PULSE OX, G2211 Complex e/m visit add on * Follow Up: 4 Months * Images: Billing Information: * Visit Code: 89739 Office Visit, Est Pt., Level 4. * Procedure Codes: 60413 PULSE OX. G2211 Complex e/m visit add on. * Electronic signature of Darryl Danielson MD on 06/17/2025 at 02:33 PM EST Sign off status: Pending * Provider: Darryl Danielson M.D. Date: 07/18/2023 Generated for Panchito tovar/Mckinley/Yoly on: 02:33 PM EST History and Physical Notes * HPI (History of Present Illness) Category Sub-Category Detail Notes Category Not es Cardiology Short of Breath Chest Pain Palpitations Dizziness Psychology Chilli Willi st ory! Examination Category Sub-Category Detail Notes Category Not es General Examination HEENT: unremarkable Heart: RSR Lungs: clear to auscultatio n Abdomen: soft and nontender Extremities: Minimal leg edema, o steoarthritic changes of the knees, right moreso than left General Appearance: NAD, note weight gai n Skin: normal, no rash Neurologic Exam: Intact, gait is good without cane Neck: supple, no lymphaden opathy Oral cavity: no lesions, mucosa m oist and WNL, no erythema Peripheral pulses: normal Chest: normal shape and exp ansion
--- OUTSIDE RECORDS SUMMARY | 2024-06-29 06:45 | XMS_ITS ---
Author Organization [facility] Address [address] [facility] [address] [place] [phone] Care Team Providers Care Boom Stick Man Name Role Phone Darryl Danielson Primary Care Provider [phone] REASON FOR VISIT checkup Encounters Encounter Location Date Provider Diagnosis [facility] [address] [place] [phone] 06/29/2024 Darryl Danielson Plan Of Treatment Next Appt Details Provider Name:Darryl Smith er, 06/28/2025 10:30:00 AM, [address], [place], [place], [id number], Progress Notes * Hannah MCLAUGHLINJacOB:1950 (75 yo F)Acc No.[id number]:06/29/2024 Progress Notes Patient: Madhav KING Provider: Darryl Danielson M.D. :1950 A ge:74 Y S ex:Female Date:06/29/2024 Address:[address] [place], [place] [address] [id number] Subjective: * Chief Complaints: * 1 . Checkup. * Medical History: Objective: * Vitals: Assessment: Plan: * Treatment: * Images: Billing Information: * Visit Code: * Procedure Codes: * Electronic signature of Darryl Danielson MD on 06/17/2025 at 02:32 PM EST Sign off status: Pending * Provider: Darryl Danielson M.D. Date: 0 06/29/2024 Generated for Panchito tovar/Mckinley/Yoly on: 1 02:32 PM EST
--- OUTSIDE RECORDS SUMMARY | 2024-08-03 05:15 | XMS_ITS ---
Author Organization [facility] Address [address] [place] [phone] Care Team Providers Care Electronics Parts Sales Representative Name Role Phone Darryl Danielson Primary Care Provider Allergies No Known Allergies Results Component Value Reference Range Notes P-Basic Metabolic Panel (BMP ) Reviewed date:08/06/2024 05:33:34 PM Interpretation:Cr 1.18, gfr 49 Performing Lab: Notes/Report: Test performed by [facility] [address] , [address], [place] [address] Cody Vaz MD, Metal Finisher CLIA: [id number] Sodium 143 135-145 mmol/L Potassium 4.2 3.5-5.3 mmol/L Chloride 107 97-108 mmol/L CO2 24 22-32 mmol/L Glucose 91 65-99 mg/dL BUN 23 8-23 mg/dL Creatinine 1.18 0.50-1.00 mg/dL Calcium 9.3 8.6-10.4 mg/dL eGFR by Creatinine 49 >59 mL/min/1.73m2 REASON FOR VISIT 4 months Medications Medication SIG (Take, Route, Frequency, Duration) Notes Start Date End Date Status Eliquis 5 MG Take 1 tablet by twice daily; Duration: 30 Active Lisinopril 10 MG 1 tablet Orally Once a day; Duration: 90 days 06/07/2024 Active Alendronate Sodium 35 MG TAKE 1 TABLET B Y MOUTH ONCE A WEEK 30 MINUTES BEFORE FIRST FOOD, BEVERAGE, OR MEDICINE OF THE DAY WITH PLAIN WATER; Duration: 28 Active DULoxetine HCl 30 MG Take 1 capsule by out once daily; Duration: 30 days Active Triamterene-HCTZ 37.5-25 MG 1/2 tab(s) o rally once a day; Duration: 90 days Active Multi For Her 50+ - as directed Orally Active Melatonin 5 MG 1 tablet in the even ing Orally Once each night as needed Active Pravastatin Sodium 40 MG TAKE 1 TABLET B Y MOUTH ONCE DAILY AT BEDTIME; Duration: 90 days Active Tylenol 325 MG 2 tab(s) orally ever y 4 hours Active Aspirin Adult Low Dose 81 MG 1 tablet Orally Once a day; Duration: 30 day(s) 02/22/2023 Active Vitamin D-3 25 MCG (1000 UT) 1 capsule Orally Once a day; Duration: 30 day(s) Active Calcium + D 600-200 MG-UNIT 1 tablet Ora lly Twice a day; Duration: 30 day(s) Active Problems Problem Type SNOMED Code ICD Code Onset Dates Problem Status W/U Status Risk Notes Problem Essential hypertension (24209826) Essential hypertension (I10) Active confirmed Problem Pure hypercholesterolemia (495550759) Pure hypercholesterolemia (E78.00) Active confirmed Vital Signs Weight 223.2 lbs 08/03/2024 Blood pressure systolic 126 mm Hg 08/03/19 25 Blood pressure diastolic 74 mm Hg 025 Heart Rate 54 /min 08/03/2024 Height 70 in 08/03/2024 BMI 32.02 kg/m2 08/03/2024 Encounters Encounter Location Date Provider Diagnosis [facility] [address], [place] [phone] 08/03/2024 Darryl Danielson Essential hypertensi on I10 ; Pure hypercholesterolemia E78.0 ; 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 ; Current use of termination clerk anticoagulation Z79.01 ; Encounter for immunization Z23 ; Renal insufficiency N28.9 and Pure hypercholesterolemia with target low density lipoprotein (LDL) cholesterol less than 130 mg/dL E78.00 Assessments Encounter Date Diagnosis (ICD Code) Assessment Notes Treatment Notes Treatment Clinical Notes Section Notes 08/03/2024 Essential hypertensi on (ICD-10 - I10) 08/03/2024 Pure hypercholesterolemia (ICD-10 - E78.0) 08/03/2024 S/P hip hemiarthropl asty (ICD-10 - Z96.649) 08/03/2024 Current use of detention anticoagulation (ICD-10 - Z79.01) 08/03/2024 Encounter for immunization (ICD-10 - Z23) 08/03/2024 Renal insufficiency (ICD-10 - N28.9) 08/03/2024 Pure hypercholesterolemia with target low density lipoprotein (LDL) cholesterol less than 130 mg/dL (ICD-10 - E78.00) Plan Of Treatment Next Appt Details Follow Up: 3 Months, Reason: Provider Name:Darryl Smith er, 06/28/2025 10:30:00 AM, [address], [address], [place], [place], [id number], Progress Notes * Hannah MCLAUGHLINeDOB:1950 (75 yo F)Acc No.[id number]:08/03/2024 Progress Notes Patient: Madhav KING Provider: Darryl Danielson M.D. :1950 A ge:74 Y S ex:Female Date:08/03/2024 Address:[address] [place] [address] [facility], [id number] Subjective: * Chief Complaints: * 1 . 4 months. * HPI: C ardiology: The patient is here for a check up on Hypertension and renal insufficiency. Pt states she doing good and denies any new concerns. Pt states she does not check her BP at home. Pt states she had one dizzy spell when she first started the Lisinopril but that passed with sitting and she has not had any more episodes like that. Pt is fasting. 74 year old female presents with c/o Short of Breath. c/o Dizziness. Denies : Chest Pain. D enies : Palpitations. * ROS: D [...] History: F ather: unknown. M other: alive 92 yrs. 1 sister(s) . . * Social [...] tablet Orally Once a day , Taking Pravastatin Sodium 40 MG Tablet TAKE 1 TABLET BY MOUTH ONCE DAILY AT BEDTIME , Taking Eliquis 5 MG Tablet Take 1 tablet by mouth twice daily , Taking DULoxetine HCl 30 MG Capsule Delayed Release Particles Take 1 capsule by mouth once daily , Taking Triamterene-HCTZ 37.5-25 MG Tablet 1/2 tab(s) orally once a day , Taking Lisinopril 10 MG Tablet 1 tablet Orally Once a day , Taking Alendronate Sodium 35 MG Tablet TAKE 1 TABLET BY MOUTH ONCE A WEEK 30 MINUTES BEFORE FIRST FOOD, BEVERAGE, OR MEDICINE OF THE DAY WITH PLAIN WATER , Medication List reviewed and reconciled with the patient * Allergies: N .K.D.A. Objective: * Vitals: W t:223.2, Temp:98.1, BP:126/74, HR:54, O2 Sat:100% on RA, Nurse:YANELIS, Ht: 70, BMI:32.02. * Examination: G eneral Examination: General Appearance: [...] Z96.649 4 . C urrent use of termination clerk anticoagulation - Z79.01 5 . E ncounter for immunization - Z23 6. R enal insufficiency - N28.9 7 . P ure hypercholesterolemia with target low density lipoprotein (LDL) cholesterol less than 130 mg/dL - E78.00 ? Plan: * Treatment: Value Reference Range B UN 23 8-23 - mg/dL * C alcium 9.3 8.6-10.4 - mg/dL * C hloride 107 97-108 - mmol/L * C O2 24 22-32 - mmol/L * C reatinine 1.18 H 0.50-1.00 - mg/dL * G lucose 91 65-99 - mg/dL * P otassium 4.2 3.5-5.3 - mmol/L * S odium 143 135-145 - mmol/L * e GFR by Creatinine 49 L >59 - mL/min/1.73m2 * Hallie White 08/06/2024 5:33: 29 PM >See phone encounter * Procedure Codes: G 2211 Complex e/m visit add on, 3074F SYST BP LT 130 MM HG, 3078F DIAST BP < 80 MM HG, [address] PULSE [place] * Follow Up: 3 Months * Images: Billing Information: * Visit Code: 00250 Office Visit, Est Pt., Level 4. * Procedure Codes: G2211 Complex e/m visit add on. 3074F SYST BP LT 130 MM HG. 3078F DIAST BP < 80 [place]. [address] P[place]SE [place]. * Electronic signature of Darryl Danielson MD on 06/17/2025 at 02:34 PM EST Sign off status: Pending * Provider: Darryl Danielson M.D. Date: 0 08/03/2024 Generated for Panchito tovar/Mckinley/Laraitting on: 1 02:34 PM EST History and Physical Notes * [...]
--- OUTSIDE RECORDS SUMMARY | 2024-10-29 04:45 | XMS_ITS ---
Author Organization [facility] Address [address] [place] [phone] Care Team Providers Care Vacuum Cleaner Operator Name Role Phone Darryl Danielson Primary Care Provider Allergies No Known Allergies Results Component Value Reference Range Notes P-Comprehensive Metabolic Pa harvey (CMP) Reviewed date:01/18/2025 09:11:37 AM Interpretation:Cr 1.3, gfr 44 Performing Lab: Notes/Report: Test performed by [facility] [address] , [address], [place] [address] Cody Vaz MD, Knife Finisher CLIA: [id number] Sodium 142 135-145 mmol/L Potassium 4.2 3.5-5.3 mmol/L Chloride 108 97-108 mmol/L CO2 25 22-32 mmol/L Glucose 82 65-99 mg/dL BUN 22 8-23 mg/dL Creatinine 1.30 0.50-1.00 mg/dL Calcium 9.1 8.6-10.4 mg/dL eGFR by Creatinine 44 >59 mL/min/1.73m2 Protein 6.4 6.0-8.3 g/dL Albumin 4.0 3.5-5.3 g/dL Alkaline Phosphatase 63 35-121 IU/L ALT (SGPT) 15 <5-47 IU/L AST (SGOT) 26 <5-40 IU/L Bilirubin, Total 0.4 <0.2-1.2 mg/dL A/G Ratio 1.7 1.1-2.5 P-Lipid Panel Reviewed date:01/18/2025 09:11:37 AM Interpretation:Normal Performing Lab: Notes/Report: Test performed by [facility] [address] [facility] , [address], [place] [address] Cody Vaz MD, Knife Finisher JEAN: [id number] Cholesterol 138 <200 mg/dL Triglycerides 145 <150 mg/dL HDL Cholesterol 43 >39 mg/dL Cholesterol / HDL Ratio 3.21 0.00-4.44 Ratio Non-HDL Cholesterol 95 <130 mg/dL LDL Cholesterol (Calculation) 66 <130 mg/dL LDL Cholesterol Levels* Less than 100 mg/dL Optimal 100 to 129 mg/dL Near Optimal/ Above Optimal 130 to 159 mg/dL Borderline High 160 to 189 mg/dL High 190 mg/dL and above Very High * Categories as recommended by the 2004 ATPIII guidelines LDL/HDL Ratio 1.5 <3.3 Ratio LDL Cholesterol Patient History Test Date: 11/22/2022 LDL Results: 80 Units: mg/dL % Change: - Test Date: 05/18/2024 LDL Results: 69 Units: mg/dL % Change: -13% Test Date: 10/29/2024 LDL Results: 66 Units: mg/dL % Change: -4% REASON FOR VISIT 3 month check Medications Medication SIG (Take, Route, Frequency, Duration) Notes Start Date End Date Status Multi For Her 50+ - as directed Orally Active Calcium + D 600-200 MG-UNIT 1 tablet Ora lly Twice a day; Duration: 30 day(s) Active Pravastatin Sodium 40 MG TAKE 1 TABLET B Y MOUTH AT BEDTIME; Duration: 90 Active Vitamin D-3 25 MCG (1000 UT) 1 capsule Orally Once a day; Duration: 30 day(s) Active Alendronate Sodium 35 MG TAKE 1 TABLET B Y MOUTH ONCE A WEEK 30 MINUTES BEFORE FIRST FOOD, BEVERAGE, OR MEDICINE OF THE DAY WITH PLAIN WATER; Duration: 56 Active Lisinopril 10 MG 1 tablet Orally Once a day; Duration: 90 days 06/07/2024 Active Eliquis 5 MG Take 1 tablet by donna twice daily Orally Two times a day; Duration: 90 days Active Triamterene-HCTZ 37.5-25 MG 1/2 tab(s) o rally once a day; Duration: 90 days Active DULoxetine HCl 30 MG Take 1 capsule by [facility] once daily; Duration: 30 Active Aspirin Adult Low Dose 81 MG 1 tablet Orally Once a day; Duration: 30 day(s) 02/22/2023 Active Tylenol 325 MG 2 tab(s) orally ever y 4 hours Active Melatonin 5 MG 1 tablet in the even ing Orally Once each night as needed Active Problems Problem Type SNOMED Code ICD Code Onset Dates Problem Status W/U Status Risk Notes Problem Body mass index 30.00 to 34.99 (925702459003 107) BMI 31.0-31.9,a dult (Z68.31) Active confirmed Vital Signs Weight 223.0 lbs 10/29/2024 Blood pressure systolic 130 mm Hg 10/30/19 25 Blood pressure diastolic 76 mm Hg 025 Heart Rate 56 /min 10/29/2024 Height 70 in 10/29/2024 BMI 31.99 kg/m2 10/29/2024 Encounters Encounter Location Date Provider Diagnosis [facility] [facility] 36 [facility] [address] [place], [place] [phone] 10/29/2024 Darryl Danielson Essential hypertensi on I10 ; History of left hip replacement Z96.642 ; Stage 3b chronic kidney disease (CKD) N18.32 ; Pure hypercholesterolemia E78.00 and BMI 31.0-31.9,adult Z68.31 Assessments Encounter Date Diagnosis (ICD Code) Assessment Notes Treatment Notes Treatment Clinical Notes Section Notes 10/29/2024 Essential hypertensi on (ICD-10 - I10) continue current therapy 10/29/2024 History of left hip replacement (ICD-10 - Z96.642) 10/29/2024 Stage 3b chronic kid kaila disease (CKD) (ICD-10 - N18.32) 10/29/2024 Pure hypercholesterolemia (ICD-10 - E78.00) 10/29/2024 BMI 31.0-31.9,adult (ICD-10 - Z68.31) Plan Of Treatment Treatment Notes Assessment Notes Essential hypertension continue current therapy Next Appt Details Follow Up: 5 months, Reason: Provider Name:Darryl Smith er, 06/28/2025 10:30:00 AM, [address] [facility] 36 [facility], [address], [place], [place], [phone], Progress Notes * Narcisa MCLAUGHLINOB:1950 (75 yo F)Acc No.[id number]:10/29/2024 Progress Notes Patient: Madhav KING Provider: Darryl Danielson M.D. :1950 A ge:74 Y S ex:Female Date:10/29/2024 Address:[address] [place], [place] [address]S[place] [id number] Subjective: * Chief Complaints: * 1 . 3 month check. * HPI: C ardiology: The patient is here for a check up on Hypertension and Hyperlipidemia. Pt states she doing good and denies any new concerns. Pt is fasting. Denies : Chest Pain. D enies : Short of Breath. D enies : Dizziness. D enies : Palpitations. U rology: Saw Dr Smith, nephrology, in September. To follow-up in one year. No changes. * ROS: D ERMATOLOGY: no R richardson. n o H alysia. G ASTROENTEROLOGY: no N ausea. n o V omiting. U ROLOGY: no D ifficulty urinating. n [...] tablet Orally Once a day , Taking Triamterene-HCTZ 37.5-25 MG Tablet 1/2 tab(s) orally once a day , Taking DULoxetine HCl 30 MG Capsule Delayed Release Particles Take 1 capsule by mouth once daily , Taking Lisinopril 10 MG Tablet 1 tablet Orally Once a day , Taking Eliquis 5 MG Tablet Take 1 tablet by mouth twice daily Orally Two times a day , Taking Alendronate Sodium 35 MG Tablet TAKE 1 TABLET BY MOUTH ONCE A WEEK 30 MINUTES BEFORE FIRST FOOD, BEVERAGE, OR MEDICINE OF THE DAY WITH PLAIN WATER , Taking Pravastatin Sodium 40 MG Tablet TAKE 1 TABLET BY MOUTH AT BEDTIME , Medication List reviewed and reconciled with the patient * Allergies: N .K.D.A. Objective: * Vitals: W t: 223.0, Temp: 98.2, BP: 130/76, HR: 56, O2 Sat: 98% on RA, Nurse: YANELIS, Ht: 70, BMI:31.99. * Examination: G eneral Examination: General Appearance: [...] Assessment: 1. E ssential hypertension - I10 2 . H istory of left hip replacement - Z96.642 3 . S tage 3b chronic kidney disease (CKD) - N18.32 4 .?Pure hypercholesterolemia - E78.00 5 . B [place] 31.0-31.9,adult - Z68.31 ? Plan: * Treatment: Value Reference Range A /G Ratio 1.7 1.1-2.5 - * A lbumin 4.0 3.5-5.3 - g/dL * A lkaline Phosphatase 63 35-121 - IU/L * A LT (SGPT) 15 <5-47 - IU/L * A ST (SGOT) 26 <5-40 - IU/L * B ilirubin, Total 0.4 <0.2-1.2 - mg/dL * B UN 22 8-23 - mg/dL * C alcium 9.1 8.6-10.4 - mg/dL * C hloride 108 97-108 - mmol/L * C O2 25 22-32 - mmol/L * C reatinine 1.30 H 0.50-1.00 - mg/dL * G lucose 82 65-99 - mg/dL * P otassium 4.2 3.5-5.3 - mmol/L * S odium 142 135-145 - mmol/L * P rotein 6.4 6.0-8.3 - g/dL * e GFR by Creatinine 44 L >59 - mL/min/1.73m2 * Hallie White 01/18/2025 09:11 :29 AM EDT > See phone encounter Notes: continue current therapy??2.?Pure hypercholesterolemia?LAB: P-Lipid Panel (Collection Date & Time - 10/29/2024 08:50 AM)?Normal* Value Reference Range C holesterol / HDL Ratio 3.21 0.00-4.44 - Ratio * C holesterol 138 <200 - mg/dL * H DL Cholesterol 43 >39 - mg/dL * L DL Cholesterol (Calculation) 66 <130 - mg/d L * L DL/HDL Ratio 1.5 <3.3 - Ratio * N on-HDL Cholesterol 95 <130 - mg/dL * T riglycerides 145 <150 - mg/dL * Hallie White 01/18/2025 09:11 :29 AM EDT > See phone encounter * Procedure Codes: G 2211 Complex e/m visit add on, 3075F SYST BP GE 130 - 139MM HG, 3078F DIAST BP < 80 MM HG * Follow Up: 5 months * Images: Billing Information: * Visit Code: 13356 Office Visit, Est Pt., Level 4. * Procedure Codes: G2211 Complex e/m visit add on. 3075F SYST BP GE 130 - 139MM HG. 3078F DIAST BP < 80 MM HG. * Electronic signature of Darryl Danielson MD on 06/17/2025 at 02:33 PM EST Sign off status: Pending * Provider: Darryl Danielson M.D. Date: 0 10/29/2024 Generated for Panchito tovar/Mckinley/eTransmlowell on: 1 02:33 PM EST History and Physical Notes * HPI (History of Present Illness) Category Sub-Category Detail Notes Category Not es Cardiology Short of Breath Chest Pain Palpitations Dizziness Urology Saw Dr Smith, ne phrology, in September. To follow-up in one year. No changes. Examination Category Sub-Category Detail Notes Category Not [...]
--- OUTSIDE RECORDS SUMMARY | 2025-03-21 09:45 | XMS_ITS ---
Author Organization [facility] Address [address] [place] [id number] Care Team Providers Care Insurance Service Representative Name Role Phone Darryl Danielson Primary Care Provider [phone] Sabine Watts [phone] REASON FOR VISIT flu shot Medications Medication [...] Administered Encounters Encounter Location Date Provider Diagnosis [facility] [address] [place] [id number] 03/21/2025 Sabine Watts Encounter for immunization Z23 Assessments Encounter Date Diagnosis (ICD Code) Assessment Notes Treatment Notes Treatment Clinical Notes Section Notes 03/21/2025 Encounter for immunization (ICD-10 - Z23) Plan Of Treatment Next Appt Details Provider Name:Darryl Smith er, 06/28/2025 10:30:00 AM, [address], [address], [place], [phone], Progress Notes * ETELVINAHannah MONTOYAJacOB:1950 (75 yo F)Acc No.[id number]:03/21/2025 Patient: Madhav KING Provider: Sabine Watts M.D. :1950 A ge:74 Y S ex:Female Date:03/21/2025 Address:[address] [place] [phone] Pcp:Darryl Danielson Subjective: * Chief Complaints: * [...] Electronic signature of Sabine Watts MD on 06/17/2025 at 02:32 PM EST Sign off status: Pending * Provider: Sabine Watts M.D. Date: Generated for Panchito tovar/Mckinley/Yoly on: 02:32 PM EST
--- OUTSIDE RECORDS SUMMARY | 2025-04-26 04:30 | XMS_ITS ---
Author Organization [facility] Address [address] [facility] [address] [place] [id number] Care Team Providers Care Cracking Still Operator Name Role Phone Darryl Danielson Primary Care Provider [phone] Allergies No Known Allergies Results Component Value Reference Range Notes P-Comprehensive Metabolic Pa harvey (CMP) Reviewed date:04/30/2025 08:44:27 AM Interpretation:BUN 24, Creat 1.38, eGFR 40 Performing Lab: Notes/Report: Test performed by [employer] [address] [place] [address] , [address], [place] [address] Cody Vaz MD, Occupational Therapist Assistant CLIA: [id number] Sodium 141 135-145 mmol/L Potassium 3.8 3.5-5.3 mmol/L Chloride 106 97-108 mmol/L CO2 26 20-32 mmol/L Glucose 81 65-99 mg/dL BUN 24 8-23 mg/dL Creatinine 1.38 0.50-1.00 mg/dL Calcium 9.5 8.6-10.4 mg/dL eGFR by Creatinine 40 >59 mL/min/1.73m2 Protein 6.6 6.0-8.3 g/dL Albumin 4.0 3.5-5.3 g/dL Alkaline Phosphatase 65 35-121 IU/L ALT (SGPT) 14 <5-47 IU/L AST (SGOT) 22 <5-40 IU/L Bilirubin, Total 0.5 <0.2-1.2 mg/dL A/G Ratio 1.5 1.1-2.5 REASON FOR VISIT 5 month ckup, Needs labs, mammogram, colon cancer screening, & Prevnar vaccine Medications Medication SIG (Take, Route, Frequency, Duration) Notes Start Date End Date Status Alendronate Sodium 35 MG TAKE 1 TABLET B Y MOUTH ONCE A WEEK 30 MINUTES BEFORE FIRST FOOD, BEVERAGE, OR MEDICINE OF THE DAY WITH PLAIN WATER; Duration: 56 Active Pravastatin Sodium 40 MG Take 1 tablet b y mouth once daily; Duration: 90 Active Eliquis 5 MG Take 1 tablet by donna th twice daily; Duration: 90 Active DULoxetine HCl 30 MG Take 1 capsule by [facility] once daily; Duration: 90 Active Lisinopril 10 MG Take 1 tablet by donna th once daily; Duration: 90 Active Tylenol 325 MG 2 tab(s) orally ever y 4 hours Active Melatonin 5 MG 1 tablet in the even ing Orally Once each night as needed Active Triamterene-HCTZ 37.5-25 MG 1/2 tab(s) o rally once a day; Duration: 90 days Active Aspirin Adult Low Dose 81 MG 1 tablet Orally Once a day; Duration: 30 day(s) 02/22/2023 Active Multi For Her 50+ - as directed Orally Active Calcium + D 600-200 MG-UNIT 1 tablet Ora lly Twice a day; Duration: 30 day(s) Active Xyzal Allergy 24HR 5 MG 1 tablet in the evening Orally Once a day Active Vitamin D-3 25 MCG (1000 UT) 1 capsule Orally Once a day; Duration: 30 day(s) Active Immunizations Vaccine Route Administration Date Status Comme nts Prevnar (PCV20) IM Intramuscular 04/26/2025 Administered Vital Signs Weight 225.0 lbs 04/26/2025 Blood pressure systolic 110 mm Hg 04/26/20 25 Blood pressure diastolic 70 mm Hg 025 Heart Rate 52 /min 04/26/2025 Height 70 in 04/26/2025 BMI 32.28 kg/m2 04/26/2025 Encounters Encounter Location Date Provider Diagnosis [facility] [address] [place] [id number] 04/26/2025 Darryl Danielson Renal insufficiency N28.9 ; 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 ; Essential (primary) hypertension I10 ; Localized edema R60.0 ; Current use of predatory animal exterminator anticoagulation Z79.01 ; Encounter for immunization Z23 and Fibrocystic breast disease (FCBD), unspecified laterality N60.19 Assessments Encounter Date Diagnosis (ICD Code) Assessment Notes Treatment Notes Treatment Clinical Notes Section Notes 04/26/2025 Renal insufficiency (ICD-10 - N28.9) 04/26/2025 S/P hip hemiarthroplasty (ICD-10 - Z96.649) 04/26/2025 Essential (primary) hypertension (ICD-10 - I10) 04/26/2025 Localized edema (ICD-10 - R60.0) 04/26/2025 Current use of long-term anticoagulation (ICD-10 - Z79.01) 04/26/2025 Encounter for immunization (ICD-10 - Z23) 04/26/2025 Fibrocystic breast disease (FCBD), unspecified laterality (ICD-10 - N60.19) Plan Of Treatment Pending Test Test Name Order Date Mammogram 04/26/2025 Next Appt Details Follow Up: 2 Months, Reason: Provider Name:Darryl Smith er, 06/28/2025 10:30:00 AM, [address] [facility] [address] [facility], [address], [place], [place], [phone], Progress Notes * Hannah MCLAUGHLINeDOB:1950 (75 yo F)Acc No.[id number]:04/26/2025 Progress Notes Patient: Madhav KING Provider: Darryl Danielson M.D. :1950 A ge:74 Y S ex:Female Date:04/26/2025 Address:[address] [place] [phone] Subjective: * Chief Complaints: * 1 . 5 month ckup. 2. Needs labs, mammogram, colon cancer screening, & Prevnar vaccine. * HPI: C ardiology: The pt is here today for a check up on Hypertension and Hyperlipidemia. Pt states she is doing good and denies any new concerns. pt is fasting. Denies : Chest Pain. D enies : Short of Breath. D enies : Dizziness. D enies : Palpitations. O pthalmology: Has started on eye drops for increased pressure. * ROS: C ONSTITUTIONAL: Positive for A nother physician seen since last visit? No, Change in medication since last visit? No, Are you taking antibiotics? No, Are you taking steroids? No. D ERMATOLOGY: no R richardson. n o [...] . Alcohol: No. * Medications: T aking Xyzal Allergy 24HR 5 MG Tablet 1 tablet in the evening Orally Once a day , Taking Calcium + D 600-200 MG-UNIT Tablet 1 [...] , Taking Pravastatin Sodium 40 MG Tablet Take 1 tablet by mouth once daily , Taking Alendronate Sodium 35 MG Tablet TAKE 1 TABLET BY MOUTH ONCE A WEEK 30 MINUTES BEFORE FIRST FOOD, BEVERAGE, OR MEDICINE OF THE DAY WITH PLAIN WATER , Medication List reviewed and reconciled with the patient * Allergies: N .K.D.A. Objective: * Vitals: W t: 225.0, Temp: 98.3, BP: 110/70, HR: 52, O2 Sat: 98% on RA, Nurse: YANELIS, Ht: 70, BMI:32.28. * Examination: G eneral Examination: General Appearance: [...] moreso than left. Assessment: * Assessment: 1. R enal insufficiency - N28.9 (Primary) 2 . S /P hip hemiarthroplasty - Z96.649 3 . E ssential (primary) hypertension - I10 4 . L ocalized edema - R60.0 5 . C urrent use of long-term anticoagulation - Z79.01 & #160; 6 . E ncounter for immunization - Z23 7 . F ibrocystic breast disease (FCBD), unspecified laterality - N60.19 Plan: * Treatment: Value Reference Range A /G Ratio 1.5 1.1-2.5 - * A lbumin 4.0 3.5-5.3 - g/dL * A lkaline Phosphatase 65 35-121 - IU/L * A LT (SGPT) 14 <5-47 - IU/L * A ST (SGOT) 22 <5-40 - IU/L * B ilirubin, Total 0.5 <0.2-1.2 - mg/dL * B UN 24 H 8-23 - mg/dL * C alcium 9.5 8.6-10.4 - mg/dL * C hloride 106 97-108 - mmol/L * C O2 26 20-32 - mmol/L * C reatinine 1.38 H 0.50-1.00 - mg/dL * G lucose 81 65-99 - mg/dL * P otassium 3.8 3.5-5.3 - mmol/L * S odium 141 135-145 - mmol/L * P rotein 6.6 6.0-8.3 - g/dL * e GFR by Creatinine 40 L >59 - mL/min/1.73m2 * AshishMariya 04/30/2025 08 :44:20 AM EST > See phone encounter 2.?Fibrocystic breast disease (FCBD), unspecified laterality?Imaging: Mammogram* Sayda Flores 05/10/2025 11: 31:57 AM EST > faxed to [facility] Scheduling * Immunizations: Prevnar (PCV20) : 0.5 mL (Route: Intramuscular) given by Mary Kate Zuniga on Right Deltoid * Procedure Codes: G 2211 Complex [place], [address] VENIPUNCT, ROUTINE*, G8950 PREHTN/HTN BP DOC INDCD F/U DOC, G8752 MOST RECENT SYSTOLIC BP < 140MM HG, G8754 MOST RECENT DIASTOLIC BP < 90MM HG, 3074F SYST BP LT 130 MM HG, 3078F DIAST BP < 80 MM HG * Follow Up: 2 Months * Images: Billing Information: * Visit Code: 49067 Office Visit, Est Pt., Level 4. * Procedure Codes: G2211 Complex e/[place]. [address] VENIPUNCT, ROUTINE*. G8950 PREHTN/HTN BP DOC INDCD F/U DOC. G8752 MOST RECENT SYSTOLIC BP < 140MM HG. G8754 MOST RECENT DIASTOLIC BP < 90MM HG. 3074F SYST BP LT 130 MM HG. 3078F DIAST BP < 80 MM HG. * Electronic signature of Darryl Danielson MD on 06/17/2025 at 02:33 PM EST Sign off status: Pending * Provider: Darryl Danielson M.D. Date: 06/26/2024 Generated for Camposi ng/Sethg/eTransmitting on: 02:33 PM EST History and Physical [...]
--- NOTE | 2025-06-17 14:31 | MM_ITS ---
PROCEDURE INFORMATION: Exam: MG Right Diagnostic Breast Tomosynthesis Exam date and time: 06/17/2025 2:45 PM Age: 75 years old Clinical indication: Patient recalled on the basis of a screening mammogram for further evaluation; Right breast; asymmetry TECHNIQUE: Imaging protocol: Right Diagnostic tomosynthesis and 2D mammography including computer-aided detection (CAD) when performed. Unilateral or bilateral exam. COMPARISON: MG MM DIG SCREENING MAMM BI W/CAD 05/17/2025 2:54 PM FINDINGS: MAMMOGRAPHY: Breast composition: There are scattered areas of fibroglandular density. Breast mammogram findings: Digital diagnostic spot compression views of the right breast and 90 degree lateral view of the right breast demonstrate normal overlapping fibroglandular structures without persistent mass or asymmetry identified. IMPRESSION: No mammographic evidence of malignancy. Annual bilateral mammographic screening is recommended unless otherwise clinically indicated. ASSESSMENT: BI-RADS Category 1: Negative.
--- OUTSIDE RECORDS SUMMARY | 2025-06-17 14:34 | XMS_ITS | Patient Health Record ---
[facility] [address] [facility] [address] [place] [id number] Care Team Providers Care Technical Illustrator Name Role Phone Darryl Danielson Primary Care Provider Mac Sabine Buck Unavailable [phone] Allergies No Known Allergies Results Component Value Reference Range Notes P-Comprehensive Metabolic Pa harvey (CMP) Reviewed date:01/18/2025 09:11:37 AM Interpretation:Cr 1.3, gfr 44 Performing Lab: Notes/Report: Test performed by [facility] [address] [place] [address] , [address], [place] [address] Cody Vaz MD, [employer] CLIA: [id number] Sodium 142 135-145 mmol/L Potassium 4.2 3.5-5.3 [...] Interpretation:Normal Performing Lab: Notes/Report: Test performed by [facility] [address] [facility] , [address], [place] [address] Cody Vaz MD, [employer] CLIA: [id number] Cholesterol 138 <200 mg/dL Triglycerides 145 <150 [...] 40 Performing Lab: Notes/Report: Test performed by [facility] [address] [place] [address] , [address], [place] [address] Cody Vaz MD, [employer] CLIA: [id number] Sodium 141 135-145 mmol/L Potassium 3.8 3.5-5.3 [...] 0.5 <0.2-1.2 mg/dL A/G Ratio 1.5 1.1-2.5 Mammogram Reviewed date:05/30/2025 09:49:08 AM Interpretation:needs additional imaging Performing Lab: Notes/Report: needs additional imaging P-Basic Metabolic Panel (BMP ) Reviewed date:08/06/2024 05:33:34 PM Interpretation:Cr 1.18, gfr 49 Performing Lab: Notes/Report: Test performed by [facility] [address] [place] [address] , [address], [place] [address] Cody Vaz MD, [employer] CLIA: [id number] Sodium 143 135-145 mmol/L Potassium 4.2 3.5-5.3 mmol/L Chloride 107 97-108 mmol/L CO2 24 22-32 mmol/L Glucose 91 65-99 mg/dL BUN 23 8-23 mg/dL Creatinine 1.18 0.50-1.00 mg/dL Calcium 9.3 8.6-10.4 mg/dL eGFR by Creatinine 49 >59 mL/min/1.73m2 Reason For Referral No Information Medications Medication [...] A WEEK 30 MINUTES BEFORE FIRST FOOD, BEVERAGE OR MEDICINE OF THE DAY WITH PLAIN WATER; Duration: 56 Active Eliquis 5 MG Take 1 tablet by donna th twice daily; Duration: 90 Active Lisinopril 10 MG Take 1 tablet by donna th once daily; Duration: 90 Active DULoxetine HCl 30 MG Take 1 capsule by m out once daily; Duration: 90 Active Immunizations Vaccine Route [...] W/U Status Risk Notes Problem Essential hypertension (67334736) Essential (primary) hypertension (I10) Active confirmed Problem Essential hypertension (96633993) Essential hypertension (I10) Active confirmed Problem Abnormal mammogram (431020103) Abnormal mammogram (R92.8) Active confirmed Problem Otitis externa (3896204) Otitis externa (H60.90) Active confirmed Problem Anxiety (24132505) Anxiety (F41.9) Active confi rmed Problem Osteopenia (899599042) Osteopenia (M85.80) Active confirmed Problem Mixed anxiety and depressive disorder (097136536) Depression with anxiety (F41.8) Active confirmed Problem Localized edema (6674711) Localized edema (R60.0) Active confirmed Problem Pure hypercholesterolemia (304855481) Pure hypercholesterolemia (E78.0) Active confirmed Problem Insomnia disorder related to another mental disorder (70271817) Insomnia due to other mental disorder (F51.05) Active confirmed Problem Mental disorder (48222719) Mental disorder, not otherwise specified (F99) Active confirmed Problem Gastroesophageal reflux disease without esophagitis (067868559) Gastroesophageal reflux disease without esophagitis (K21.9) Active confirmed Problem Renal insufficiency (115006505) Renal insufficiency (N28.9) Active confirmed Problem Leukocytosis (136979648) Leukocytosis, unspecified type (D72.829) Active confirmed Problem Iron deficiency anemia (82602336) Iron deficiency anemia, unspecified iron deficiency anemia type (D50.9) Active confirmed Problem Long-term current us e of anticoagulant (458086318) Current use of buttermaker continuous churn anticoagulation (Z79.01) Active confirmed Problem Body mass index 30.0 0 to 34.99 (185314634735021) BMI 31.0-31.9,adult (Z68.31) Active confirmed Problem Dyslipidemia (935174205) Dyslipidemia (E78.5) Active confirmed Problem Pure hypercholesterolemia (662196344) Pure hypercholesterolemia (E78.00) Active confirmed Problem Contracture of suarez r fascia (418836256) Dupuytren's contracture (M72.0) Active confirmed Problem Osteoarthritis of knee (311615588) Arthropathy of both knees (M17.0) Active confirmed Problem Fibrocystic breast changes (73255290) Fibrocystic breast disease (FCBD), unspecified laterality (N60.19) Active confirmed Problem Seasonal allergic rhinitis (018040242) Seasonal allergic rhinitis, unspecified trigger (J30.2) Active confirmed Problem Acute deep venous thrombosis of left femoral vein (268583252314371) Acute deep vein thrombosis (DVT) of femoral vein of left lower extremity (I82.412) Active confirmed Problem History of left hip replacement (0271304932102726) History of left hip replacement (Z96.642) Active confirmed Problem Peripheral neuropath y of bilateral lower limbs (disorder) (34494337771653997) Neuropathy involving both lower extremities (G57.93) Active confirmed Problem S/P hip hemiarthroplasty (Z96.649) Active confirmed Problem Chronic kidney disease stage 3B (disorder) (841139564) Stage 3b chronic kidney disease (CKD) (N18.32) Active confirmed Problem Pure hypercholesterolemia (212511454) Pure hypercholesterolemia with target low density lipoprotein (LDL) cholesterol less than 130 mg/dL (E78.00) Active confirmed Vital Signs Heart Rate 52 /min 04/26/2025 Blood pressure diastolic 70 mm Hg 04/26/2025 Height 70 in 04/26/2025 Blood pressure systolic 110 mm Hg 04/26/2025 Weight 225.0 lbs 04/26/2025 BMI 32.28 kg/m2 04/26/2025 Encounters Encounter Location Date Provider Diagnosis [facility] [address] [facility] [address] [place], [place] [id number] 08/03/2024 Darryl Danielson Essential hypertensi on I10 ; Pure hypercholesterolemia E78.0 ; 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 ; Current use of correction anticoagulation Z79.01 ; Encounter for immunization Z23 ; Renal insufficiency N28.9 and Pure hypercholesterolemia with target low density lipoprotein (LDL) cholesterol less than 130 mg/dL E78.00 [facility] [address] [facility] [address] [place], [place] [id number] 10/29/2024 Darryl Danielson Essential hypertensi on I10 ; History of left hip replacement Z96.642 ; Stage 3b chronic kidney disease (CKD) N18.32 ; Pure hypercholesterolemia E78.00 and BMI 31.0-31.9,adult Z68.31 [facility] [address] [facility] [address] [place], [place] [id number] 03/21/2025 Sabine Watts Encounter for immuni zation Z23 [facility] [address] [facility] [address] [place], [place] [id number] 04/26/2025 Darryl Danielson Renal insufficiency N28.9 ; 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 ; Essential (primary) hypertension I10 ; Localized edema R60.0 ; Current use of correction anticoagulation Z79.01 ; Encounter for immunization Z23 and Fibrocystic breast disease (FCBD), unspecified laterality N60.19 [facility] [address] [facility] [address] [place], [place] [id number] 08/06/2024 Darryl Danielson [facility] [address] [place], [place] [id number] 08/29/2024 Darryl Danielson [facility] [address] [place], [place] [id number] 01/18/2025 Darryl Danielson [facility] [address] [place], [place] [id number] 04/30/2025 Darryl Danielson [facility] [address] [place] [id number] 05/27/2025 Darryl Danielson [facility] [address] [place], [place] [id number] 05/30/2025 Darryl Danielson Assessments Encounter Date Diagnosis (ICD Code) Assessment Notes Treatment Notes Treatment Clinical Notes Section Notes 08/03/2024 Essential hypertensi on (ICD-10 - I10) 08/03/2024 Pure hypercholesterolemia (ICD-10 - E78.0) 10/29/2024 Essential hypertensi on (ICD-10 - I10) continue current therapy 10/29/2024 History of left hip replacement (ICD-10 - Z96.642) 03/21/2025 Encounter for immunization (ICD-10 - Z23) 04/26/2025 Renal insufficiency (ICD-10 - N28.9) 04/26/2025 S/P hip hemiarthropl asty (ICD-10 - Z96.649) 04/26/2025 Essential (primary) hypertension (ICD-10 - I10) 10/29/2024 Stage 3b chronic kid kaila disease (CKD) (ICD-10 - N18.32) 08/03/2024 S/P hip hemiarthropl asty (ICD-10 - Z96.649) 08/03/2024 Current use of buttermaker continuous churn anticoagulation (ICD-10 - Z79.01) 10/29/2024 Pure hypercholesterolemia (ICD-10 - E78.00) 04/26/2025 Localized edema (ICD -10 - R60.0) 04/26/2025 Current use of correction anticoagulation (ICD-10 - Z79.01) 10/29/2024 BMI 31.0-31.9,adult (ICD-10 - Z68.31) 08/03/2024 Encounter for immunization (ICD-10 - Z23) 08/03/2024 Renal insufficiency (ICD-10 - N28.9) 04/26/2025 Encounter for immunization (ICD-10 - Z23) 04/26/2025 Fibrocystic breast disease (FCBD), unspecified laterality (ICD-10 - N60.19) 08/03/2024 Pure hypercholesterolemia with target low density lipoprotein (LDL) cholesterol less than 130 mg/dL (ICD-10 - E78.00) Plan Of Treatment Pending Test Test Name Order Date Ultrasound : Breast, right 05/30/2025 Mammogram 04/26/2025 Diagnostic Mammogram : spot compression, right breast 05/30/2025 Next Appt Details Provider Name:Darryl ConnNoah Luis er, 06/28/2025 10:30:00 AM, [address], [place], [place], [id number], Insurance Providers Payer Name Payer Address Payer Phone Subscriber Number Group Number Insured Name Patient Relationship to Insured Coverage Start Date Coverage End Date MEDICARE PART B [address] [address] [id number] Madhav Burks Self - patient is the insured [facility] [address] [place] [id number] Madhav Burks Self - patient is the [...]
--- OUTSIDE RECORDS SUMMARY | 2025-06-17 14:34 | XMS_ITS | Clinical Summary ---
Author Organization [facility] Address [address] [place], [place] [address] Care Team Providers Care Ambulance Driver Name Role Phone Robby Danielson MD Primary Care Provider [phone] Allergies No known active allergies Medications Melatonin [...] Vaccine: 60+ Years or (1 - Risk 50-74 years 1-dose series) 2002 [facility]-Zoster Vaccines (3 of 3) 01/24/2019 11/29/2018, 09/17/2018 [id number] Vaccine ( season) 2025 05/29/2024, 04/13/2023, 04/01/2022, Additional history exists [facility]-Influenza Vaccine (#1) 02/18/202503/24, 03/27/2021, 03/17/2020, Additional history exists [facility]-DTaP,Tdap,and Td Vaccines (2 - Td or Tdap) 06/25/2025 06/25/2015 [facility]-Pneumococcal Vaccine: 50+ Years Completed 07/18/2019, 06/28/2018 [facility]-Obesity Intervention Completed 025, 12/19/2023, 05/02/2023, Additional history exists HPV Vaccines (No Doses Required) Completed [facility]-HIB Vaccines Aged Out No longer e [...] age to complete this topic Insurance MEDICARE [facility] Care Teams Ambulance Driver Relationship Specialty Start Date End Date Robby Danielson MD [facility] [id number] PCP - General 04/16/22
== END 2025-06-17 23:59 | disposition home or self-care (01) ==
LOC: RAD 14:29
PROVIDERS: PCP Family Medicine; Visit Provider Family Medicine
DX: R92.321 Mammographic fibroglandular density, right breast (principal)
CPT/HCPCS: 77061; 77065; G0279